=== PATIENT | female | born 1990 | race Caucasian/White ===

== ENCOUNTER 2018-05-25 05:49 | Outpatient (CLI) | payer MEDICAID ==
[~2018-05-25] VITALS: Ht 170.2 cm; Wt 152.4 kg
[~2018-05-25 05:49] MED LIST: ALBU17AE23 IH; ALBU8.5H4 IH; ALPR0.5T3 PO; ALPR1T PO; BACL10TA; CITA10TA70 PO; CLN150C1RX PO; CLON0.5T3; DESV50TA PO; DICL75TA2; DOXY100C2 PO; FLT4413 IH; GABA-486; HYDR25CA5 PO; IBUP-1773 PO; PRM5C60 TP; QUET100T32; SERT20OR PO; SULF1TAB35 PO; SULF1TAB38 PO
[2018-05-25] MEDS ORDERED: DICL75TA2 PO (12:23)
== END 2018-05-25 14:50 | disposition home or self-care (01) ==
LOC: PREOP 05:49
PROVIDERS: ATTEND Surgery
DX: Z01.818 Encounter for other preprocedural examination (principal)

== ENCOUNTER 2018-06-01 05:56 | Day surgery (SDC) | payer MEDICAID ==
[~2018-06-01] VITALS: Ht 170.2 cm; Wt 144.7 kg
[~2018-06-01 05:56] MED LIST changes: +DICL75TA2 PO
[2018-06-01 06:20] VITALS: BP 129/82
[2018-06-01] MEDS ORDERED: CATHETER FLUSH 10 ML SYR IV PRN (06:45)
[2018-06-01] MEDS ORDERED: ceFAZolin 2 GM IV Premixed 50 ML IV ONE (06:45)
[2018-06-01] MEDS ORDERED: MIDAZOLAM 2 MG/2 ML (VERSED) VIAL ONE (06:56)
[2018-06-01] MEDS ORDERED: proPOfol 200 MG/20 ML (DIPRIVAN) VIAL IV ONE (06:56)
[2018-06-01] MEDS ORDERED: ROCURONIUM 10 MG/ML 5 ML SYRINGE IV ONE (06:56)
[2018-06-01] MEDS ORDERED: ONDANSETRON 4 MG/2 ML (SDV) Z0FRAN ONE (06:56)
[2018-06-01] MEDS ORDERED: LIDOCAINE PF 2% 5 ML (XYLOCAINE) VIAL ONE (06:56)
[2018-06-01] MEDS ORDERED: fentaNYL INJECTION 100 MCG/2 ML AMP ONE (06:57)
[2018-06-01] MEDS ORDERED: DESFLURANE (SUPRANE) 15 ML INHAL SOLN ONE ×6 (06:59→09:25)
[2018-06-01] MEDS ORDERED: MIDAZOLAM 2 MG/2 ML (VERSED) VIAL IV ONE (07:00)
[2018-06-01] MEDS: LACTATED RINGERS 1,000 ML IV PRN ×2 (07:15→09:05)
--- OUTSIDE RECORDS SUMMARY | 2018-06-01 07:21 | XMS REPORT ---
Author Author Migration, Doctor Organization [facility] Address Unknown Phone Unavailable Care Team Providers Care Mechanical Product Engineer Name Role Phone Migration, Doctor Unavailable Unavailable PROBLEMS Type Condition ICD9-CM Code [id number] Code Onset Dates Condition Status SNOMED Code Problem Tobacco abuse Z72.0 Active 60069113 Problem History of long-term use of multiple prescription drugs Z92.29 Active 124322178 Problem Moderate persistent asthma without complication J45.40 Active 801291588 Problem Moderate depressed bipolar I disorder F31.32 Active 52066812 Problem Schizophrenia F20.9 Active 72541959 Problem Bipolar disorder F31.9 Active 58727842 Problem BUTCH (generalized anxiety disorder) F41.1 Active 01678662 Problem Moderate episode of recurrent major depressive disorder F33.1 Active 031260631 Problem 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 03602437 Problem Body mass index (BMI) of 45.0-49.9 in adult Z68.42 Active 307447375 Problem Morbid (severe) obesity due to excess calories E66.01 Active 796652487 Problem Morbid obesity E66.01 Active 227195353 Problem Borderline personality disorder F60.3 Active 63084747 Problem Calculus of gallbladder without cholecystitis without obstruction K80.20 Active 91877807 Problem Cannabis use disorder, mild, abuse F12.10 Active 63309467 Problem Family history of hyperlipidemia Z83.49 Active 234361491 Problem Other chronic pain G89.29 Active 44455494 Problem Lumbago with sciatica, left side M54.42 Active 819226344 Problem Lumbago with sciatica, right side M54.41 Active 901503373856537 Problem BMI 50.0-59.9, adult Z68.43 Active 823821280 ALLERGIES No Information ENCOUNTERS Encounter Location Date Diagnosis [facility] [address] [facility] [id number] [place] [address] May, Encounter for smoking cessation counseling Z71.6 ; BMI 50.0- 59.9, adult Z68.43 ; Rash R21 ; Calculus of gallbladder without cholecystitis without obstruction K80.20 ; Tobacco use Z72.0 ; Morbid obesity E66.01 and Other chronic pain G89.29 [place] [id number] [place] [address] 03307- 3409 Mar, [place] [id number] [place] [address] 04692- 7618 Mar, [place] [address] [address]15- 8794 Nov, BUTCH (generalized anxiety disorder) F41.1 ; 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 ; Borderline personality disorder F60.3 and Cannabis use disorder, mild, abuse F12.10 [place] [id number] [place] [address] 09153- 6629 July, BMI 50.0-59.9, adult Z68.43 ; Rash R21 ; Morbid (severe) obesity due to excess calories E66.01 and Infection, fungal, left foot B35.3 [place] [id number] [place] [address] 32067- 0213 May, [place] [id number] [place] [address] 17973- 8345 Mar, [place] [id number] [place] [address] 54392- 4109 Mar, [place] [id number] [place] [address] 84493- 4037 Mar, BUTCH (generalized anxiety disorder) F41.1 ; 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 ; Borderline personality disorder F60.3 ; Cannabis use disorder, mild, abuse F12.10 and BMI 45.0-49.9, adult Z68.42 [place] [address] [place] [address] 55845- 0829 Feb, BMI 45.0-49.9, adult Z68.42 ; Lumbago with sciatica, left side M54.42 ; Lumbago with sciatica, right side M54.41 and Other chronic pain G89.29 [place] [id number] [place] [address] 28878- 1721 Feb, BUTCH (generalized anxiety disorder) F41.1 ; 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 ; Borderline personality disorder F60.3 and Cannabis use disorder, mild, abuse F12.10 [place] [id number] [place] [address] 07794- 6744 Jan, BUTCH (generalized anxiety disorder) F41.1 ; 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 ; Borderline personality disorder F60.3 and Cannabis use disorder, mild, abuse F12.10 [place] [id number] [place] [address] 21246- 7749 Dec, Cold intolerance R68.89 ; Morbid (severe) obesity due to excess calories E66.01 ; Screening for lipid disorders Z13.220 and Screening for diabetes mellitus (DM) Z13.1 [address] [place] [address] 94187- 4370 Dec, Body mass index (BMI) of 45.0-49.9 in adult Z68.42 ; Morbid (severe) obesity due to excess calories E66.01 ; Screening for diabetes mellitus (DM) Z13.1 ; Screening for lipid disorders Z13.220 and Cold intolerance R68.89 [place] [address] [place] [address] 52627- 4583 Nov, BUTCH (generalized anxiety disorder) F41.1 ; 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 ; Borderline personality disorder F60.3 and Cannabis use disorder, mild, abuse F12.10 [place] [address] [address] Oct, [place] [id number] [place] [address] 09197- 9686 Oct, BUTCH (generalized anxiety disorder) F41.1 ; 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 ; Borderline personality disorder F60.3 and Cannabis use disorder, mild, abuse F12.10 [place] [id number] [place] [address] 82868- 4398 17 Sep, 2016 Encounter for test, result unknown Z32.00 [place] [id number] [place] [address] 93639- 1741 15 Aug, 2016 Low back pain M54.5 ; Dermatitis L30.9 ; Moderate episode of recurrent major depressive disorder F33.1 ; Morbid (severe) obesity due to excess calories E66.01 ; Body mass index (BMI) of 40.0-44.9 in adult Z68.41 and BMI 40.0-44.9, adult Z68.41 [place] [id number] [place] [address] 22098- 3508 13 Aug, [address] [address]349- 9044 Aug, [address] 78823- 6181 Aug, Moderate depressed bipolar I disorder F31.32 ; Schizophrenia F20.9 and Bipolar disorder, current episode mixed, moderate F31.62 [place] [id number] [place] [address] 77045- 7583 May, Nexplanon insertion Z30.017 [place] [id number] [place] [address] 65639- 6116 Apr, History of long-term use of multiple prescription drugs Z92.29 ; Cannabis abuse F12.10 ; Moderate depressed bipolar I disorder F31.32 and Bipolar disorder, current episode mixed, moderate F31.[address] 45352- 7671 Mar, Cannabis abuse F12.10 and Bipolar disorder F31.9 [place] [id number] [place] [address] 61667- 2522 Mar, [place] [id number] [place] [address] 66914- 9528 Mar, exam Z39.2 [facility] [id number] [place] [address] 03673- 1453 Feb, Bipolar disorder, current episode mixed, moderate F31.62 [facility] [id number] [place] [address] 23986- 5953 Feb, [place] [id number] [place] [address] 61046- 1493 Jan, [place] [id number] [place] [address] 84980- 4176 Jan, [place] [id number] [place] [address] 42512- 1890 Jan, care, subsequent in third trimester Z34.83 and 37 weeks gestation of Z3A.37 [place] [id number] [place] [address] 73514- 9066 17 Jan, 2016 Encounter for dental examination and cleaning without abnormal findings Z01.20 [place] [id number] [place] [address] 80490- 9577 10 Jan, 2016 [place] [id number] [place] [address] 36158- 0916 10 Jan, 2016 care, subsequent in third trimester Z34.83 and 36 weeks gestation of Z3A.36 [place] [id number] [place] [address] 43147- 5091 03 Jan, 2016 Third trimester at less than 36 weeks Z33.1 ; screening for streptococcus B Z36 and 35 weeks gestation of Z3A.35 [place] [id number] [place] [address] 43227- 5534 Dec, care, subsequent in third trimester Z34.83 and 34 weeks gestation of Z3A.34 [place] [id number] [place] [address] 90520- 7883 Dec, [facility] [address] [address]- 1577 Dec, Urine frequency R35.0 [place] [id number] [place] [address] 77331- 3719 Dec, Urine frequency R35.0 [place] [id number] [place] [address] 96242- 1864 Dec, Third trimester at less than 36 weeks Z33.1 ; 31 weeks gestation of Z3A.31 and Encounter for immunization Z23 [place] [id number] [place] [address] 38990- 0575 Dec, [place] [id number] [place] [address] 11838- 6487 Nov, Third trimester at less than 36 weeks Z33.1 ; Encounter for immunization Z23 and 29 weeks gestation of Z3A.29 [facility] [id number] [place] [address] 50871- 7056 Nov, Second trimester Z33.1 and Diabetes mellitus screening Z13.1 [place] [id number] [place] [address] 16192- 3195 Oct, Second trimester Z33.1 and 23 weeks gestation of Z3A.23 [place] [id number] [place] [address] 02317- 8071 Oct, [place] [id number] [place] [address] 46393- 6486 Sep, [place] [id number] [place] [address] 24882- 0210 Sep, Second trimester Z33.1 ; 18 weeks gestation of Z3A.18 ; History of long-term use of multiple prescription drugs Z92.29 ; complicated by previous recurrent miscarriages, 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 and , high-risk, second trimester O09.92 [place] [id number] [place] [address] 98441- 6663 Aug, [place] [address] [id number] [address]- 7157 Aug, , high-risk, second trimester O09.92 and 14 weeks gestation of Z3A.14 [place] [id number] [address]- 0586 July, complicated by previous recurrent miscarriages, 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 [place] [address], [place] [address]- 2723 July, , high-risk, second trimester O09.92 ; Moderate persistent asthma without complication J45.40 and 16 weeks gestation of Z3A.16 [facility] [address] [id number] [place] [address] July [place] [address] [address]- 2590 July, [place] [address] [address]- 5006 July, Moderate depressed bipolar I disorder F31.32 ; Cannabis abuse F12.10 and First trimester Z33.1 [place] [address] [address]- 5141 Jun, [place] [address] [address]- 5048 Jun, [place] [address], [place] [address]- 6235 Jun, confirmed by positive urine test Z32.01 [place] [address], [place] [address]- 3882 Jun, Moderate depressed bipolar I disorder F31.32 and Cannabis abuse F12.10 [place] [id number] [address]- 2678 May, [place] [address] [address]- 5042 May, [place] [address] [place] [address] 36735- 1780 May, Moderate depressed bipolar I disorder F31.32 and Cannabis abuse F12.10 [place] [address] [place] [address] 13230- 7675 May, Routine screening for STI (sexually transmitted infection) Z11.3 ; Moderate depressed bipolar I disorder F31.32 ; Unprotected sexual intercourse Z72.51 ; History of irregular menstrual bleeding Z87.42 ; Screening for malignant neoplasm of cervix Z12.4 and Vaginal discharge N89.[address] 29669- 0077 May, Moderate depressed bipolar I disorder F31.32 and Cannabis abuse F12.10 [place] [id number] [place] [address] 29560- 1943 Apr, History of long-term use of multiple prescription drugs Z92.29 [place] [id number] [place] [address] 56238- 8040 24 Apr, 2015 Tobacco abuse Z72.0 ; High risk bisexual behavior Z72.53 ; History of long-term use of multiple prescription drugs Z92.29 and Family history of hyperlipidemia Z83.49 [place] [id number] [place] [address] 27368- 4093 Apr, [place] [id number] [place] [address] 87830- 1656 Jan, Posttraumatic stress disorder F43.10 ; Borderline personality disorder F60.3 and Bipolar disorder with severe depression F31.[address] 68089- 6821 14 Nov, 2014 Bipolar I disorder, most recent episode (or current) mixed, moderate 296.62 ; Posttraumatic stress disorder 309.81 and Nondependent cannabis abuse, unspecified 305.20 [place] [id number] [place] [address] 01431- 3741 Nov, Posttraumatic stress disorder 309.81 ; Attention deficit 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.00 and Bipolar I disorder, most recent episode (or current) mixed, moderate 296.62 [facility] [address] [place] [address] 807777- 4366 Oct, [facility] [id number] [place] [address] 36645- 6754 Sep, Family history of diabetes mellitus V18.0 ; Fatigue 780.79 ; Tobacco abuse 305.1 and Overweight 278.02 [facility] [address] [place] [address] 49067- 0235 Aug, [facility] [id number] [place] [address] 82684- 1973 Aug, [facility] [id number] [place] [address] 57957- 4244 Aug, [facility] [id number] [place] [address] 15610- 6582 Aug, Bipolar I disorder, most recent episode (or current) mixed, moderate 296.62 and Nondependent cannabis abuse, unspecified 305.20 [facility] [address] [place] [address] 19020- 5800 July, Bipolar I disorder, most recent episode (or current) mixed, moderate 296.62 ; Posttraumatic stress disorder 309.81 ; Attention deficit 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.00 and Nondependent cannabis abuse, unspecified 305.20 [facility] [address], [place] [address]- 7002 July, [facility] [id number] [place] [address] 93072- 7993 Jun, [facility] [id number] [place] [address] 41339551- 8848 Jun, [facility] [address] [place] [address] 78572- 3466 May, [facility] [place] [facility] [address] [id number] [place] [address]- 8524 May, [facility] [place] [facility] [address] [id number] [place] [address]- 5628 May, [facility] [place] [facility] [address] [id number] [place] [address]- 2831 May, [facility] [place] [facility] [address] [id number] [place] [address]- 6864 May, [facility] [place] [facility] [address] [id number] [place] [address]- 6573 May, [facility] [place] [facility] [address] [id number] [place] [address]- 1216 Apr, [facility] [place] [facility] [address] [id number] [place] [address]- 7313 Apr, [facility] [place] [facility] [address] [id number] [place] [address]- 8483 Mar, [facility] [place] [facility] [address] [id number] [place] [address]- 4596 Mar, [facility] [place] [facility] [address] [id number] [place] [address]- 7161 Mar, [facility] [place] [facility] [address] [id number] [place] [address]- 7505 Mar, [facility] [place] [facility] [address] [id number] [place] [address]- 2907 Mar, [facility] [place] [facility] [address] [id number] [place] [address]- 4414 Mar, [facility] [place] [facility] [address] [id number] [place] [address]- 8197 Feb, [facility] [place] [facility] [address] [id number] [place] [address]- 6502 Feb, [facility] [place] [facility] [address] [id number] [place] [address]- 2230 Feb, [facility] [place] [facility] [address] [id number] [place] [address]- 0590 Feb, [facility] [place] [facility] [address] [id number] [place] [address]- 4907 Feb, [facility] [place] [facility] [address] [id number] [place] [address]- 3789 Feb, [facility] [place] [facility] [address] [id number] [place] [address]- 5143 Feb, [facility] [place] [facility] [address] [id number] [place] [address]- 9750 Jan, [facility] [place] [facility] [address] [id number] [place] [address]- 2591 Jan, [facility] [place] [facility] [address] [id number] [place] [address]- 6092 Jan, [facility] [place] [facility] [address] [id number] [place] [address]- 1181 Jan, [facility] [place] [facility] [address] [id number] [place] [address]- 1697 Jan, [facility] [place] [facility] [address] [id number] [place] [address]- 3711 Jan, [facility] [place] [facility] [address] [id number] [address]- 4268 Dec, [facility] [place] [facility] [address] [id number], [place] [address]- 4860 Dec, [facility] [place] [facility] [address] [id number] [place] [address]- 1535 Dec, [facility] [place] [facility] [address] [id number] [place] [address]- 3843 Dec, [facility] [place] [facility] [address] [id number] [place] [address]- 4929 Dec, [facility] [place] [facility] [address] [id number] [place] [address] 2546 Dec, [facility] [place] [facility] [address] [id number] [place] [address]- 5705 Dec, [facility] [place] [facility] [address] [id number] [place] [address]- 7866 Dec, [facility] [place] [facility] [address] [id number] [place] [address]- 8814 Nov, [facility] [place] [facility] [address] [id number] [place] [address]- 5836 Nov, [facility] [place] [facility] [address] [id number] [place] [address]- 5754 Oct, [facility] [place] [facility] [address] [id number] [place] [address]- 8246 Oct, [facility] [place] [facility] [address] [id number] [place] [address]- 6881 Oct, [facility] [place] [facility] [address] [id number] [place] [address]- 8112 Aug, [facility] [place] [facility] [address] [id number] [place] [address]- 1596 Aug, [facility] [place] [facility] [address] [id number] [place] [address]- 5688 Aug, [facility] [place] [facility] [address] [id number] [place] [address]- 0668 Aug, [facility] [place] [facility] [address] [id number] [place] [address]- 3663 July, [facility] [place] [facility] [address] [id number] [place] [address]- 8016 July, [facility] [place] [facility] [address] [id number] [place] [address]- 0197 July, [facility] [place] [facility] [address] [id number] [place] [address]- 3726 July, [facility] [address] [id number] [place] [address]- 2363 July, [facility] [place] [facility] [address] [id number] [place] [address]- 9911 July, [facility] [place] [facility] [address] [id number] [place] [address]- 0307 Jun, [facility] [place] [facility] [address] [id number] [place] [address]- 8242 Jun, [facility] [place] [facility] [address] [id number] [place] [address]- 9522 Jun, [facility] [place] [facility] [address] [id number] [place] [address]- 6782 Jun, [facility] [place] [facility] [address] [id number] [place] [address]- 8983 Apr, [facility] [place] [facility] [address] [id number] [place] [address]- 3758 Apr, [facility] [place] [facility] [address] [id number] [place] [address]- 7072 Mar, [facility] [place] [facility] [address] [id number] [place] [address]- 7161 Mar, [facility] [place] [facility] [address] [id number] [place] [address]- 0778 Mar, [facility] [place] [facility] [address] [id number] [place] [address]- 5201 Mar, [facility] [place] [facility] [address] [id number] [place] [address]- 7667 Feb, [facility] [place] [facility] [address] [id number] [place] [address]- 1252 Feb, [facility] [place] [facility] [address] [id number] [place] [address]- 9462 Feb, [facility] [place] [facility] [address] [id number] [place] [address]- 3192 13 Feb, 2013 [facility] [address] [id number] [place] [address]- 3911 13 Feb, 2013 [facility] [place] [facility] [address] [id number] [place] [address]- 7994 13 Feb, 2013 [facility] [address] [id number] [place] [address]- 6698 11 Feb, 2013 [facility] [place] [facility] [address] [id number] [place] [address]- 7047 11 Feb, 2013 [facility] [address] [id number] [place] [address]- 4166 04 Feb, 2013 [facility] [place] [facility] [address] [id number] [place] [address]- 7109 03 Feb, 2013 [facility] [address] [id number] [place] [address]- 7103 03 Feb, 2013 [facility] [place] [facility] [address] [id number] [place] [address]- 3483 19 Jan, 2013 [facility] [place] [facility] [address] [id number] [place] [address]- 4729 19 Jan, 2013 [facility] [place] [facility] [address] [facility] [id number] [place] [address] 19 Jan, 2013 [facility] [place] [facility] [address] [id number] [place] [address] 19 Jan, 2013 [facility] [place] [facility] [address] [id number] [address] 18 Dec, 2012 [facility] [place] [facility] [address] [id number] [place] [address] 18 Dec, 2012 [facility] [place] [facility] [address] [id number], [place] [address] 16 Dec, 2012 [facility] [place] [facility] [address] [id number] [address] 16 Dec, 2012 [facility] [place] [facility] [address] [id number] [place] [address] Dec, [facility] [place] [facility] [address] [id number] [place] [address] Dec, [facility] [place] [facility] [address] [id number] [place] [address] Oct, [facility] [place] [facility] [address] [id number] [place] [address] Oct, [facility] [place] [facility] [address] [id number] [place] [address] Oct, [facility] [place] [facility] [address] [id number] [place] [address] Oct, [facility] [place] [facility] [address] [id number] [place] [address] Sep, [facility] [place] [facility] [address] [id number] [place] [address] Sep, [facility] [place] [facility] [address] [id number] [place] [address] Aug, [facility] [place] [facility] [address] [id number] [place] [address] July, [facility] [place] [facility] [address] [id number] [place] [address] Jun, [facility] [place] [facility] [address] [id number] [place] [address] Jun, [facility] [place] [facility] [address] [id number] [place] [address] Jun, [facility] [place] [facility] [address] [id number] [place] [address] May, [facility] [place] [facility] [address] [id number] [place] [address] May, [facility] [place] [facility] [address] [id number] [place] [address] May, [facility] [place] [facility] [address] [id number] [place] [address] Apr, [facility] [place] [facility] [address] [id number] [place] [address] Mar, [facility] [place] [facility] [address] [id number] [place] [address] Mar, [facility] [place] [facility] [address] [id number] [place] [address] Mar, [facility] [place] [facility] [address] [id number] [place] [address] Feb, [facility] [place] [facility] [address] [id number] [place] [address] Feb, [facility] [place] [facility] [address] [id number] [place] [place] [address] Feb, [facility] [place] [facility] [address] [id number] [place] [address] Feb, [facility] [place] [facility] [address] [id number] [place] [address] Jan, [facility] [place] [facility] [address] [id number] [place] [address] Jan, [facility] [place] [facility] [address] [id number] [place] [address] Jan, [facility] [place] [facility] [address] [id number] [place] [address] Dec, [facility] [place] [facility] [address] [id number] [place] [address] Dec, [facility] [place] [facility] [address] [id number] [place] [address] Oct, [facility] [place] [facility] [address] [id number] [place] [address] Sep, [facility] [place] [facility] [address] [id number] [place] [address] Sep, [facility] [address] [id number] [place] [address] July, [facility] [address] [id number] [place] [address] July, [facility] [address] [id number] [place] [address] Jun, [facility] [address] [id number] [place] [address] Jun, [facility] [address] [id number] [place] [address] Jun, [facility] [address] [id number] [place] [address] Jun, [facility] [address] [id number] [place] [address] Apr, [facility] [address] [id number] [place] [address] Apr, [facility] [address] [id number] [place] [address] Mar, [facility] [address] [id number] [place] [address] Mar, [facility] [address] [id number] [place] [address] Mar, [facility] [address] [id number] [place] [address] Feb, [facility] [place] [facility] [address] [id number] [place] [address] Feb, [facility] [address] [id number] [place] [address] Feb, [facility] [address] [id number] [place] [address] Feb, [facility] [address] [facility] [id number], [place] [address] Feb, [facility] [address] [facility] [id number], [place] [address] Jan, [facility] [address] [facility] [id number], [place] [address] Mar, [facility] [address] [facility] [id number] [address] Mar, [facility] [address] [facility] [id number], [place] [address] Jan, IMMUNIZATIONS No Known Immunizations SOCIAL HISTORY Never Assessed REASON FOR VISIT [facility] [place] VITAL SIGNS MEDICATIONS Unknown Medications RESULTS No Results PROCEDURES No Known procedures INSTRUCTIONS MEDICATIONS ADMINISTERED No Known Medications MEDICAL (GENERAL) HISTORY Type Description Date Medical History Narc Note March 2014 positive THC & Xanax without current Rx Medical History Asthma Medical History Borderline diabetes Medical History Depression with hallucinations, personality, self inflicting Medical History Bipolar disorder Medical History THC Abuse Medical History Arthralgia and Myalgia Negative RA Mar 2014 Medical History Anxiety Medical History Nondependent cannabis abuse, unspecified Medical History Attention deficit disorder of childhood without mention of hyperactivity Medical History Bipolar I disorder, most recent episode (or current) mixed, moderate Medical History Posttraumatic stress disorder Medical History schizophrenia Surgical History Tonsillectomy Hospitalization History Previous hospitalizations for over dose on Tylenol, Aspirin, Ibuprofen 2007 Hospitalization History Previous hospitalizations for psychiatric treatment for suicidal tendencies, cutter, burner, biter ([place] x2, [place] x1, [place] x3) Hospitalization History Acute Migraines/Vomiting 2014 Hospitalization History Childbirth 01/31/2016
--- OUTSIDE RECORDS SUMMARY | 2018-06-01 07:21 | XMS REPORT | Clinical Summary ---
Author Author [facility] Organization [facility] Address Unknown Phone Unavailable Care Team Providers Care Mining Detail Draftsperson Name Role Phone PP Unavailable Allergies No Known Allergies Medications No known medications Active Problems Problem Noted Date Suicidal ideation 01/05/2011 Mood disorder with psychosis 01/02/2011 Immunizations Name Dates Previously Given Next Due Influenza IIV3 PFree 01/01/2011 Family History Medical History Relation Name Comments Mental illness Maternal Aunt Jenniferna Mental illness Maternal Merlin Uncle Mental illness Mother Delon Relation Name Status Comments Brother Markell Alive Maternal Aunt Pascual Alive Maternal Uncle Merlin Alive Mother Delon Alive Social History Date Tobacco Use Types Packs/Day Years Used Current Every Day Smoker 1 5 Smokeless Tobacco: Never Used Tobacco Cessation: Ready to Quit: No; Counseling Given: Yes Alcohol Use Drinks/Week oz/Week Comments No Sex Assigned at Date Recorded Not on file Industry Job Start Date Occupation Not on file Not on file Not on file Travel End Travel History Travel Start No recent travel history available. Last Filed Vital Signs Time Taken Vital Sign Reading 01/05/2011 6:58 AM CDT Blood Pressure 125/63 01/05/2011 6:58 AM CDT Pulse 87 01/05/2011 6:58 AM CDT Temperature 36.8 C (98.2 F) 01/05/2011 6:58 AM CDT Respiratory Rate 16 - Oxygen Saturation - - Inhaled Oxygen - Concentration 01/01/2011 3:55 PM CDT Weight 130.2 kg (287 lb) 01/01/2011 3:55 PM CDT Height 167.6 cm (5' 6") 01/01/2011 3:55 PM CDT Body Mass Index 46.32 Plan of Treatment Health Maintenance Due Date Last Done Comments Varicella Vaccines (1 of 07/02/2004 2 - 13+ 2-dose series) HPV Vaccines (1 - Female 07/02/2006 3-dose series) DTaP,Tdap,and Td Vaccines 07/02/2010 (1 - Tdap) CERVICAL CANCER SCREENING 07/02/2012 Influenza Vaccine (#1) 2017 01/01/2011 Results Not on filefrom Last 3 Months Advance Directives For more information, please contact: [address] [address] Date Inactivated Comments Code Status Date Activated 01/05/2011 4:13 PM Full Code 01/01/2011 5:24 PM
--- OUTSIDE RECORDS SUMMARY | 2018-06-01 07:22 | XMS REPORT ---
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 49747771 Problem Borderline personality disorder F60.3 Active 36314021 Problem BMI 50.0-59.9, adult Z68.43 Active 367768101 Problem Other chronic pain G89.29 Active 84751741 Problem Morbid (severe) obesity due to excess calories E66.01 Active 216409356 Problem Body mass index (BMI) of 45.0-49.9 in adult Z68.42 Active 696089804 Problem Lumbago with sciatica, right side M54.41 Active [id number] Problem Lumbago with sciatica, left side M54.42 Active 656580814 Problem History of long-term use of multiple prescription drugs Z92.29 Active 419909614 Problem Family history of hyperlipidemia Z83.49 Active 166708774 Problem Tobacco abuse Z72.0 Active 58778392 Problem Bipolar disorder F31.9 Active 67331348 Problem Schizophrenia F20.9 Active 26910013 Problem Moderate depressed bipolar I disorder F31.32 Active 39944096 Problem Moderate episode of recurrent major depressive disorder F33.1 Active 396226231 Problem Moderate persistent asthma without complication J45.40 Active 118867069 Problem BUTCH (generalized anxiety disorder) F41.1 Active 98157351 ALLERGIES No Information ENCOUNTERS Encounter Location Date Diagnosis [facility] [id number] [address] Oct, [facility] [address], [place] [address] July, BMI 50.0-59.9, adult Z68.43 ; Rash R21 ; Morbid (severe) obesity due to excess calories E66.01 and Infection, fungal, left foot B35.3 [address] [address] May, [id number] [place] [address] 51510- 3437 Mar, [id number] [place] [address] 36922- 7912 Mar, [id number] [place] [address] 28709- 4917 Mar, BUTCH (generalized anxiety disorder) F41.1 ; 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 ; Borderline personality disorder F60.3 ; Cannabis use disorder, mild, abuse F12.10 and BMI 45.0-49.9, adult Z68.42 [id number] [place] [address] 53023- 6389 Feb, BMI 45.0-49.9, adult Z68.42 ; Lumbago with sciatica, left side M54.42 ; Lumbago with sciatica, right side M54.41 and Other chronic pain G89.29 [address] [address] Feb, BUTCH (generalized anxiety disorder) F41.1 ; 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 ; Borderline personality disorder F60.3 and Cannabis use disorder, mild, abuse F12.10 [address] [place] [address] 75911- 1914 Jan, BUTCH (generalized anxiety disorder) F41.1 ; 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 ; Borderline personality disorder F60.3 and Cannabis use disorder, mild, abuse F12.10 [id number] [place] [address] 70952- 4949 Dec, Cold intolerance R68.89 ; Morbid (severe) obesity due to excess calories E66.01 ; Screening for lipid disorders Z13.220 and Screening for diabetes mellitus (DM) Z13.1 [id number] [place] [address] 95517- 3091 Dec, Body mass index (BMI) of 45.0-49.9 in adult Z68.42 ; Morbid (severe) obesity due to excess calories E66.01 ; Screening for diabetes mellitus (DM) Z13.1 ; Screening for lipid disorders Z13.220 and Cold intolerance R68.[address] [address]- [address] Nov, BUTCH (generalized anxiety disorder) F41.1 ; 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 ; Borderline personality disorder F60.3 and Cannabis use disorder, mild, abuse F12.[address] [address]- 3877 Oct, [address] [address]- 3127 Oct, BUTCH (generalized anxiety disorder) F41.1 ; 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 ; Borderline personality disorder F60.3 and Cannabis use disorder, mild, abuse F12.10 [id number] [place] [address] 51176- 0954 Sep, Encounter for test, result unknown Z32.[address] [address]- 1554 15 Aug, 2016 Low back pain M54.5 ; Dermatitis L30.9 ; Moderate episode of recurrent major depressive disorder F33.1 ; Morbid (severe) obesity due to excess calories E66.01 ; Body mass index (BMI) of 40.0-44.9 in adult Z68.41 and BMI 40.0-44.9, adult Z68.[address] 17020- 2993 Aug, [facility] [id number] [place] [address] 33194- 6789 Aug, [facility] [id number] [place] [address] 26952- 3204 Aug, Moderate depressed bipolar I disorder F31.32 ; Schizophrenia F20.9 and Bipolar disorder, current episode mixed, moderate F31.62 [id number] [place] [address] 72616- 3955 May, Nexplanon insertion Z30.017 [facility] [id number] [place] [address] 72412- 8002 Apr, History of long-term use of multiple prescription drugs Z92.29 ; Cannabis abuse F12.10 ; Moderate depressed bipolar I disorder F31.32 and Bipolar disorder, current episode mixed, moderate F31.62 [id number] [place] [address] 28671- 9993 Mar, Cannabis abuse F12.10 and Bipolar disorder F31.9 [id number] [place] [address] 94749- 3953 Mar, [id number] [place] [address] 47426- 4169 Mar, exam Z39.2 [id number] [place] [address] 61534- 0384 Feb, Bipolar disorder, current episode mixed, moderate F31.62 [facility] [id number] [place] [address] 25838- 6867 Feb, [facility] [id number] [place] [address] 36956- 8289 Jan, [facility] [id number] [place] [address] 40421- 9786 Jan, [facility] [id number] [place] [address] 34301- 0895 Jan, care, subsequent in third trimester Z34.83 and 37 weeks gestation of Z3A.37 [id number] [place] [address] 65171- 1326 17 Jan, 2016 Encounter for dental examination and cleaning without abnormal findings Z01.20 [id number] [place] [address] 94255- 4010 10 Jan, 2016 [address] [address]- 3654 Jan, care, subsequent in third trimester Z34.83 and 36 weeks gestation of Z3A.36 [address] 85803- 0354 03 Jan, 2016 Third trimester at less than 36 weeks Z33.1 ; screening for streptococcus B Z36 and 35 weeks gestation of Z3A.35 [address] 75216- 1019 Dec, care, subsequent in third trimester Z34.83 and 34 weeks gestation of Z3A.34 [id number] [place] [address] 23242- 4539 Dec, [id number] [place] [address] 03411- 7392 Dec, Urine frequency R35.0 [id number] [place] [address] 47448- 2145 Dec, Urine frequency R35.0 [id number] [place] [address] 95879- 9287 Dec, Third trimester at less than 36 weeks Z33.1 ; 31 weeks gestation of Z3A.31 and Encounter for immunization Z23 [id number] [place] [address] 56472- 0599 Dec, [id number] [place] [address] 05987- 3670 22 Sep, 2016 Third trimester at less than 36 weeks Z33.1 ; Encounter for immunization Z23 and 29 weeks gestation of Z3A.29 [address] [place] [address] 29747- 3132 Nov, Second trimester Z33.1 and Diabetes mellitus screening Z13.1 [address] [place] [address] 94167- 6304 Oct, Second trimester Z33.1 and 23 weeks gestation of Z3A.23 [id number] [place] [address] 60822- 1621 Oct, [id number] [place] [address] 29431- 7196 Sep, [address] [place] [address] 85077- 6138 Sep, Second trimester Z33.1 ; 18 weeks gestation of Z3A.18 ; History of long-term use of multiple prescription drugs Z92.29 ; complicated by previous recurrent miscarriages, 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 and , high-risk, second trimester O09.92 [address] [place] [address] 02879- 0102 Aug, [address] [place] [address] 07515- 9110 Aug, , high-risk, second trimester O09.92 and 14 weeks gestation of Z3A.14 [address] [place] [address] 37608- 0699 July, complicated by previous recurrent miscarriages, 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 [address] [place] [address] 38087- 1789 July, , high-risk, second trimester O09.92 ; Moderate persistent asthma without complication J45.40 and 16 weeks gestation of Z3A.16 [facility] [address] [id number] [address] July [facility] [address] [address]- 6[address] July, [facility] [id number] [place] [address] 69303- 4551 July, Moderate depressed bipolar I disorder F31.32 ; Cannabis abuse F12.10 and First trimester Z33.1 [address] [place] [address] 60869- 4196 Jun, [facility] [id number] [place] [address] 28462- 3583 Jun, [id number] [place] [address] 01718- 5010 Jun, confirmed by positive urine test Z32.01 [id number] [place] [address] 59122- 4762 Jun, Moderate depressed bipolar I disorder F31.32 and Cannabis abuse F12.10 [address] [place] [address] 09478- 5338 May, [id number] [place] [address] 80095- 2629 May, [facility] [address] [place] [address] 04717- 7050 May, Moderate depressed bipolar I disorder F31.32 and Cannabis abuse F12.10 [address] [place] [address] 58560- 3191 May, Routine screening for STI (sexually transmitted infection) Z11.3 ; Moderate depressed bipolar I disorder F31.32 ; Unprotected sexual intercourse Z72.51 ; History of irregular menstrual bleeding Z87.42 ; Screening for malignant neoplasm of cervix Z12.4 and Vaginal discharge N89.8 [address] [address]- 8819 May, Moderate depressed bipolar I disorder F31.32 and Cannabis abuse F12.10 [address] [place] [address] 67715- 9296 Apr, History of long-term use of multiple prescription drugs Z92.29 [address] [place] [address] 49778- 7864 Apr, Tobacco abuse Z72.0 ; High risk bisexual behavior Z72.53 ; History of long-term use of multiple prescription drugs Z92.29 and Family history of hyperlipidemia Z83.49 [id number] [place] [address] 31056- 8182 Apr, [id number] [place] [address] 66874- 1453 Jan, Posttraumatic stress disorder F43.10 ; Borderline personality disorder F60.3 and Bipolar disorder with severe depression F31.4 [id number] [place] [address] 85655- 4893 Nov, Bipolar I disorder, most recent episode (or current) mixed, moderate 296.62 ; Posttraumatic stress disorder 309.81 and Nondependent cannabis abuse, unspecified 305.20 [id number] [place] [address] 45998- 8123 Nov, Posttraumatic stress disorder 309.81 ; Attention deficit 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.00 and Bipolar I disorder, most recent episode (or current) mixed, moderate 296.62 [address] [place] [address] 10105- 1148 Oct, [id number] [place] [address] 45997- 9793 Sep, Family history of diabetes mellitus V18.0 ; Fatigue 780.79 ; Tobacco abuse 305.1 and Overweight 278.[address] [place] [address] 72568- 8778 Aug, [address] [place] [address] 68402- 2709 Aug, [address] [address] Aug, [facility] [address] [place] [address] 453435- 0956 Aug, Bipolar I disorder, most recent episode (or current) mixed, moderate 296.62 and Nondependent cannabis abuse, unspecified 305.20 [facility] [address] [place] [address] 555106- 9381 July, Bipolar I disorder, most recent episode (or current) mixed, moderate 296.62 ; Posttraumatic stress disorder 309.81 ; Attention deficit 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.00 and Nondependent cannabis abuse, unspecified 305.20 [facility] [address] [place] [address] 68324- 8479 July, [facility] [id number] [place] [address] 31881- 0462 Jun, [facility] [id number] [place] [address] 72302- 7828 Jun, [facility] [address] [address]- 5613 May, [facility] [address] [place] [address] 21710- 1760 May, [facility] [address] [address]- 0516 May, [facility] [address], [place] [address]- 2598 May, [facility] [address] [address] 0805 May, [facility] [address] [place] [address] 145769- 6396 May, [facility] [address] 1508 Apr, [facility] [id number] [place] [address], [place] [address]- 8285 Apr, [facility] [place] [facility] [address] [id number] [place] [address]- 6442 Mar, [facility] [place] [facility] [address] [id number] [place] [address]- 5535 Mar, [facility] [place] [facility] [address] [id number] [place] [address]- 9372 Mar, [facility] [place] [facility] [address] [id number] [place] [address]- 1208 Mar, [facility] [place] [facility] [address] [id number] [place] [address]- 0910 Mar, [facility] [place] [facility] [address] [id number] [place] [address]- 6950 Mar, [facility] [place] [facility] [address] [id number] [place] [address]- 5569 Feb, [facility] [place] [facility] [address] [id number] [place] [address]- 0627 Feb, [facility] [place] [facility] [address] [id number] [place] [address]- 9757 Feb, [facility] [place] [facility] [address] [id number] [place] [address]- 0698 Feb, [facility] [place] [facility] [address] [id number] [place] [address]- 8322 Feb, [facility] [place] [facility] [address] [id number] [place] [address]- 0552 Feb, [facility] [place] [facility] [address] [id number] [place] [address]- 7691 Feb, [facility] [place] [facility] [address] [id number] [place] [address]- 4258 Jan, [facility] [place] [facility] [address] [id number] [place] [address]- 3076 Jan, [facility] [place] [facility] [address] [id number] [place] [address]- 6120 Jan, [facility] [place] [facility] [address] [id number] [place] [address]- 0430 Jan, [facility] [place] [facility] [address] [id number] [place] [address]- 4751 Jan, [facility] [place] [facility] [address] [id number] [place] [address]- 6315 Jan, [facility] [place] [facility] [address] [id number] [place] [address]- 2665 Dec, [facility] [place] [facility] [address] [id number] [place] [address]- 5952 Dec, [facility] [place] [facility] [address] [id number] [place] [address]- 0668 Dec, [facility] [place] [facility] [address] [id number] [place] [address]- 2422 Dec, [facility] [place] [facility] [address] [id number] [place] [address]- 0189 Dec, [facility] [place] [facility] [address] [id number] [place] [address]- 0694 Dec, [facility] [place] [facility] [address] [id number] [place] [address]- 8026 Dec, [facility] [place] [facility] [address] [id number] [place] [address]- 8216 Dec, [facility] [place] [facility] [address] [id number] [place] [address]- 1854 Nov, [facility] [place] [facility] [address] [id number] [place] [address]- 3889 Nov, [facility] [place] [facility] [address] [id number] [place] [address]- 6289 Oct, [facility] [place] [facility] [address] [id number] [place] [address]- 5696 Oct, [facility] [place] [facility] [address] [id number] [place]- 2161 Oct, [facility] [place] [facility] [address] [id number] [place] [address]- 2928 Aug, [facility] [place] [facility] [address] [id number] [place] [address]- 8886 Aug, [facility] [place] [facility] [address] [id number] [place] [address]- 0573 Aug, [facility] [place] [facility] [address] [id number] [place] [address]- 8565 Aug, [facility] [place] [facility] [address] [id number] [place] [address]- 5914 July, [facility] [place] [facility] [address] [id number] [place] [address]- 6383 July, [facility] [place] [facility] [address] [id number] [place] [address]- 9042 July, [facility] [place] [facility] [address] [id number] [place] [address]- 5851 July, [facility] [place] [facility] [address] [id number] [place] [address]- 4337 July, [facility] [place] [facility] [address] [id number] [place] [address]- 2484 July, [facility] [place] [facility] [address] [id number] [place] [address]- 6216 Jun, [facility] [place] [facility] [address] [id number] [place] [address]- 3095 Jun, [facility] [place] [facility] [address] [id number] [place] [address]- 5792 Jun, [facility] [place] [facility] [address] [id number] [place] [address]- 5982 Jun, [facility] [place] [facility] [address] [id number] [place] [address]- 9375 14 Apr, 2013 [facility] [address] [id number] [place] [address]- 4763 14 Apr, 2013 [facility] [address] [id number] [place] [address]- 7476 Mar, [facility] [address] [id number] [place] [address]- 9056 Mar, [facility] [address] [id number] [place] [address]- 3414 Mar, [facility] [address] [id number] [place] [address]- 9894 Mar, [facility] [address] [id number] [place] [address]- 8879 16 Feb, 2013 [facility] [address] [id number] [place] [address]- 9354 16 Feb, 2013 [facility] [address] [id number] [place] [address]- 6030 13 Feb, 2013 [facility] [address] [id number] [place] [address]- 3642 13 Feb, 2013 [facility] [address] [id number] [place] [address]- 0390 13 Feb, 2013 [facility] [address] [id number] [place] [address]- 2542 13 Feb, 2013 [facility] [address] [id number] [place] [address] 2547 11 Feb, 2013 [facility] [address] [id number] [place] [address]- 5460 11 Feb, 2013 [facility] [address] [id number] [place] [address]- 3836 04 Feb, 2013 [facility] [address] [id number] [place] [address]- 4050 Feb, [facility] [place] [facility] [address] [id number] [place] [address]- 4078 Feb, [facility] [place] [facility] [address] [id number] [place] [address]- 5913 Jan, [facility] [place] [facility] [address] [id number] [place] [address]- 3821 Jan, [facility] [place] [facility] [address] [id number] [place] [address]- 3878 Jan, [facility] [place] [facility] [address] [id number] [place] [address]- 2117 Jan, [facility] [place] [facility] [address] [id number] [place] [address]- 3821 Dec, [facility] [place] [facility] [address] [id number] [place] [address]- 1466 Dec, [facility] [place] [facility] [address] [id number] [place] [address]- 8575 Dec, [facility] [place] [facility] [address] [id number] [place] [address]- 7076 Dec, [facility] [place] [facility] [address] [id number] [place] [address]- 3883 Dec, [facility] [place] [facility] [address] [id number] [place] [address]- 5007 Dec, [facility] [place] [facility] [address] [id number], [place] [address] Oct, [facility] [place] [facility] [address] [id number] [place] [address] Oct, [facility] [place] [facility] [address] [id number] [place] [address] Oct, [facility] [place] [facility] [address] [id number] [place] [address] Oct, [facility] [place] [facility] [address] [id number] [place] [address] 31 Sep, 2012 [facility] [address] [id number] [place] [address] Sep, [facility] [address] [id number] [place] [address] Aug, [facility] [address] [id number] [place] [address] July, [facility] [address] [id number] [place] [address] Jun, [facility] [address] [id number] [place] [address] Jun, [facility] [address] [id number] [place] [address] Jun, [facility] [address] [id number] [place] [address] May, [facility] [address] [id number] [place] [address] May, [facility] [address] [id number] [place] [address] May, [facility] [address] [id number] [place] [address] Apr, [facility] [address] [id number] [place] [address] Mar, [facility] [address] [id number] [place] [address] Mar, [facility] [address] [id number] [place] [address] Mar, [facility] [address] [id number] [place] [address] Feb, [facility] [address] [id number] [place] [address] Feb, [facility] [place] [facility] [address] [id number] [place] [address] Feb, [facility] [place] [facility] [address] [id number] [place] [address] Feb, [facility] [place] [facility] [address] [id number] [place] [address] Jan, [facility] [place] [facility] [address] [id number] [place] [address] Jan, [facility] [place] [facility] [address] [id number] [place] [address] Jan, [facility] [place] [facility] [address] [id number] [place] [address] Dec, [facility] [place] [facility] [address] [id number] [place] [place] [address] Dec, [facility] [place] [facility] [address] [id number] [place] [address] Oct, [facility] [place] [facility] [address] [id number] [place] [address] Sep, [facility] [place] [facility] [address] [id number] [place] [address] Sep, [facility] [place] [facility] [address] [id number] [place] [address] July, [facility] [place] [facility] [address] [id number] [place] [address] July, [facility] [place] [facility] [address] [id number] [place] [address] Jun, [facility] [place] [facility] [address] [id number] [place] [address] Jun, [facility] [place] [facility] [address] [id number] [place] [address] Jun, [facility] [place] [facility] [address] [id number] [place] [address] Jun, [facility] [id number] [address] Apr, [facility] [id number] [address] Apr, [facility] [id number] [address] Mar, [facility] [id number] [address] Mar, [facility] [id number], [place] [address] Mar, [facility] [id number] [place] [address] Feb, [facility] [id number] [place] [address]- [address] Feb, [facility] [id number] [address] Feb, [facility] [id number], [place] [address] Feb, [facility] [id number], [place] [address] Feb, [facility] [id number] [address] Jan, [facility] [id number] [address] Mar, [facility] [id number] [address] Mar, [facility] [id number] [address] Jan, IMMUNIZATIONS No Known Immunizations SOCIAL HISTORY Never Assessed REASON FOR VISIT PLAN OF CARE VITAL SIGNS MEDICATIONS Unknown [...] treatment for suicidal tendencies, cutter, burner, biter ([place] x2, [place] x1, [place] x3) Hospitalization History Acute Migraines/Vomiting 2014 Hospitalization History Childbirth 01/31/2016
--- OUTSIDE RECORDS SUMMARY | 2018-06-01 07:22 | XMS REPORT ---
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 78012275 Problem Borderline personality disorder F60.3 Active 74499991 Problem BMI 50.0-59.9, adult Z68.43 Active 274528110 Problem Other chronic pain G89.29 Active 90633602 Problem Morbid (severe) obesity due to excess calories E66.01 Active 071132635 Problem Body mass index (BMI) of 45.0-49.9 in adult Z68.42 Active 810930876 Problem Lumbago with sciatica, right side M54.41 Active 839719343354126 Problem Lumbago with sciatica, left side M54.42 Active 141591635 Problem History of long-term use of multiple prescription drugs Z92.29 Active 443630311 Problem Family history of hyperlipidemia Z83.49 Active 705010794 Problem Tobacco abuse Z72.0 Active 50330908 Problem Bipolar disorder F31.9 Active 72129033 Problem Schizophrenia F20.9 Active 78255268 Problem Moderate depressed bipolar I disorder F31.32 Active 78456109 Problem Moderate episode of recurrent major depressive disorder F33.1 Active 118984791 Problem Moderate persistent asthma without complication J45.40 Active 101897925 Problem BUTCH (generalized anxiety disorder) F41.1 Active 11788485 ALLERGIES Substance Reaction Event Type Date Status Viibryd rash Drug Allergy Nov, Active ENCOUNTERS Encounter Location Date Diagnosis [facility] [address] [facility] [id number] [place] [address] Dec, [place] [address] [address] Nov, BUTCH (generalized anxiety disorder) F41.1 ; 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 ; Borderline personality disorder F60.3 and Cannabis use disorder, mild, abuse F12.10 [place] [id number] [place] [address] 05892- 0227 July, BMI 50.0-59.9, adult Z68.43 ; Rash R21 ; Morbid (severe) obesity due to excess calories E66.01 and Infection, fungal, left foot B35.3 [place] [address] [place] [id number] [place] [address] 35046- 4534 May, [place] [address] [place] [id number] [place] [address] 81555- 4561 Mar, [place] [address] [place] [id number] [place] [address] 83868- 7331 Mar, [place] [address] [place] [id number] [place] [address] 28016- 8096 Mar, BUTCH (generalized anxiety disorder) F41.1 ; 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 ; Borderline personality disorder F60.3 ; Cannabis use disorder, mild, abuse F12.10 and BMI 45.0-49.9, adult Z68.42 [place] [id number] [place] [address] 86699- 5737 Feb, BMI 45.0-49.9, adult Z68.42 ; Lumbago with sciatica, left side M54.42 ; Lumbago with sciatica, right side M54.41 and Other chronic pain G89.29 [place] [address] [place] [id number] [place] [address] 37127- 1724 Feb, BUTCH (generalized anxiety disorder) F41.1 ; 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 ; Borderline personality disorder F60.3 and Cannabis use disorder, mild, abuse F12.10 [place] [address] [place] [id number] [place] [address] 41108- 7279 Jan, BUTCH (generalized anxiety disorder) F41.1 ; 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 ; Borderline personality disorder F60.3 and Cannabis use disorder, mild, abuse F12.10 [place] [id number] [place] [address] 49794- 4165 Dec, Cold intolerance R68.89 ; Morbid (severe) obesity due to excess calories E66.01 ; Screening for lipid disorders Z13.220 and Screening for diabetes mellitus (DM) Z13.1 [place] [id number] [place] [address] 65957- 8807 Dec, Body mass index (BMI) of 45.0-49.9 in adult Z68.42 ; Morbid (severe) obesity due to excess calories E66.01 ; Screening for diabetes mellitus (DM) Z13.1 ; Screening for lipid disorders Z13.220 and Cold intolerance R68.89 [place] [id number] [place] [address] 50013- 0270 Nov, BUTCH (generalized anxiety disorder) F41.1 ; 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 ; Borderline personality disorder F60.3 and Cannabis use disorder, mild, abuse F12.10 [place] [id number] [place] [address] 40329- 6951 Oct, [place] [id number] [place] [address] 49414- 2434 Oct, BUTCH (generalized anxiety disorder) F41.1 ; 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 ; Borderline personality disorder F60.3 and Cannabis use disorder, mild, abuse F12.[address] 35275- 2116 Sep, Encounter for test, result unknown Z32.00 [place] [id number] [place] [address] 53276- 8055 Aug, Low back pain M54.5 ; Dermatitis L30.9 ; Moderate episode of recurrent major depressive disorder F33.1 ; Morbid (severe) obesity due to excess calories E66.01 ; Body mass index (BMI) of 40.0-44.9 in adult Z68.41 and BMI 40.0-44.9, adult Z68.41 [place] [address] [place] [id number] [place] [address] 78671- 5018 Aug, [place] [address] 57612- 1326 Aug, [place] [address] 11447- 6233 Aug, Moderate depressed bipolar I disorder F31.32 ; Schizophrenia F20.9 and Bipolar disorder, current episode mixed, moderate F31.[address] 13933- 1883 May, Nexplanon insertion Z30.[address] 21230- 9158 Apr, History of long-term use of multiple prescription drugs Z92.29 ; Cannabis abuse F12.10 ; Moderate depressed bipolar I disorder F31.32 and Bipolar disorder, current episode mixed, moderate F31.62 [place] [address] 86909- 6907 Mar, Cannabis abuse F12.10 and Bipolar disorder F31.9 [place] [address] 17339- 8568 Mar, [address] 67244- 0791 Mar, exam Z39.[address] 23943- 8315 Feb, Bipolar disorder, current episode mixed, moderate F31.62 [place] [address] 67241- 7727 Feb, [address] [id number] [address] 23[address] Jan, [place] [address] [place] [id number] [place] [address] 99085- 6823 Jan, [place] [address] [place] [id number] [place] [address] 90165- 2109 Jan, care, subsequent in third trimester Z34.83 and 37 weeks gestation of Z3A.37 [place] [address] [place] [id number] [place] [address] 97849- 1921 17 Jan, 2016 Encounter for dental examination and cleaning without abnormal findings Z01.20 [place] [address] [place] [id number] [place] [address] 32654- 7945 Jan, [place] [address] [place] [id number] [place] [address] 91117- 0237 Jan, care, subsequent in third trimester Z34.83 and 36 weeks gestation of Z3A.36 [place] [address] [place] [address] 75938- 0209 03 Jan, 2016 Third trimester at less than 36 weeks Z33.1 ; screening for streptococcus B Z36 and 35 weeks gestation of Z3A.35 [place] [address] [place] [address] 47087- 5747 Dec, care, subsequent in third trimester Z34.83 and 34 weeks gestation of Z3A.34 [place] [address] [address]- 0555 Dec, [place] [address] [place] [address] 23519- 7538 Dec, Urine frequency R35.0 [place] [address] [place] [address] 58782- 3078 Dec, Urine frequency R35.0 [place] [address] [place] [address] 59380- 1490 Dec, Third trimester at less than 36 weeks Z33.1 ; 31 weeks gestation of Z3A.31 and Encounter for immunization Z23 [place] [address] [address] 0212 Dec, [place] [address] [address]- 0992 Nov, Third trimester at less than 36 weeks Z33.1 ; Encounter for immunization Z23 and 29 weeks gestation of Z3A.29 [place] [address] [address]- 7093 Nov, Second trimester Z33.1 and Diabetes mellitus screening Z13.1 [place] [address] [place] [id number] [place] [address] 19560- 5715 Oct, Second trimester Z33.1 and 23 weeks gestation of Z3A.23 [place] [address] [place] [id number] [place] [address] 21881- 6835 Oct, [place] [address] [address]- 6152 Sep, [place] [address] [place] [address] 10419- 2059 Sep, Second trimester Z33.1 ; 18 weeks gestation of Z3A.18 ; History of long-term use of multiple prescription drugs Z92.29 ; complicated by previous recurrent miscarriages, 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 and , high-risk, second trimester O09.92 [place] [address] [place] [id number] [address]- 4733 Aug, [place] [address] [place] [address] 62322- 7466 Aug, , high-risk, second trimester O09.92 and 14 weeks gestation of Z3A.14 [address] [address]- 5269 July, complicated by previous recurrent miscarriages, 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 [facility] [address] [place] [id number] [address]- 6941 July, , high-risk, second trimester O09.92 ; Moderate persistent asthma without complication J45.40 and 16 weeks gestation of Z3A.16 [facility] [address] [id number] [place] [address] July [facility] [address] [address]- 3585 July, [facility] [address] [address]- 3886 July, Moderate depressed bipolar I disorder F31.32 ; Cannabis abuse F12.10 and First trimester Z33.1 [facility] [address] [address]- 3124 Jun, [place] [address] [place] [address] 84300- 1313 Jun, [place] [address] [address] Jun, confirmed by positive urine test Z32.01 [place] [address] [address]- 6096 04 Jun, 2015 Moderate depressed bipolar I disorder F31.32 and Cannabis abuse F12.10 [place] [address] [address]- 8226 May, [facility] [address] [place] [id number] [address]- 6201 May, [facility] [address] [address]- 5971 May, Moderate depressed bipolar I disorder F31.32 and Cannabis abuse F12.10 [facility] [address] [place] [id number] [address]- 8626 May, Routine screening for STI (sexually transmitted infection) Z11.3 ; Moderate depressed bipolar I disorder F31.32 ; Unprotected sexual intercourse Z72.51 ; History of irregular menstrual bleeding Z87.42 ; Screening for malignant neoplasm of cervix Z12.4 and Vaginal discharge N89.[address] 49465- 2044 May, Moderate depressed bipolar I disorder F31.32 and Cannabis abuse F12.[address] 16843- 6237 Apr, History of long-term use of multiple prescription drugs Z92.[address] 09257- 1988 Apr, Tobacco abuse Z72.0 ; High risk bisexual behavior Z72.53 ; History of long-term use of multiple prescription drugs Z92.29 and Family history of hyperlipidemia Z83.[address] 81918- 3268 Apr, [address] 14912- 6094 Jan, Posttraumatic stress disorder F43.10 ; Borderline personality disorder F60.3 and Bipolar disorder with severe depression F31.[address] 89674- 5845 Nov, Bipolar I disorder, most recent episode (or current) mixed, moderate 296.62 ; Posttraumatic stress disorder 309.81 and Nondependent cannabis abuse, unspecified 305.[address] 56041- 0893 Nov, Posttraumatic stress disorder 309.81 ; Attention deficit 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.00 and Bipolar I disorder, most recent episode (or current) mixed, moderate 296.62 [place] [id number] [place] [address] 76355- 7326 Oct, [address] 08755- 6582 Sep, Family history of diabetes mellitus V18.0 ; Fatigue 780.79 ; Tobacco abuse 305.1 and Overweight 278.02 [facility] [address] [address]- 2984 Aug, [facility] [address] [address]- 1820 Aug, [facility] [address] [place] [address] 16105- 1463 Aug, [facility] [address] [place] [id number] [place] [address] 03494- 1266 Aug, Bipolar I disorder, most recent episode (or current) mixed, moderate 296.62 and Nondependent cannabis abuse, unspecified 305.20 [facility] [address] [place] [address] 27106- 4702 July, Bipolar I disorder, most recent episode (or current) mixed, moderate 296.62 ; Posttraumatic stress disorder 309.81 ; Attention deficit 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.00 and Nondependent cannabis abuse, unspecified 305.20 [facility] [address] [address]- 5151 July, [facility] [address] [place] [address] 78398- 0068 Jun, [facility] [address] [address]- 1746 Jun, [facility] [address] [place] [address] 52966- 4709 May, [facility] [address] [address]- 1628 May, [facility] [address] [place] [id number] [place] [address] 91893- 8048 May, [facility] [address] [address]- 9109 May, [facility] [address] [place] [id number] [place] [address] 87788- 3039 May, [facility] [address] [id number] [place] [address]- 6406 May, [facility] [place] [facility] [address] [id number] [place] [address]- 7353 Apr, [facility] [place] [facility] [address] [id number] [place] [address]- 7766 Apr, [facility] [place] [facility] [address] [id number] [place] [address]- 2798 Mar, [facility] [place] [facility] [address] [id number] [place] [address]- 9388 Mar, [facility] [place] [facility] [address] [id number] [place] [address]- 6818 Mar, [facility] [place] [facility] [address] [id number] [place] [address]- 5248 Mar, [facility] [place] [facility] [address] [id number] [place] [address]- 0798 Mar, [facility] [place] [facility] [address] [id number] [place] [address]- 1300 Mar, [facility] [place] [facility] [address] [facility] [id number] [place] [address]- 2828 Feb, [facility] [place] [facility] [address] [id number] [place] [address]- 8977 Feb, [facility] [place] [facility] [address] [id number] [place] [address]- 1173 Feb, [facility] [place] [facility] [address] [id number] [place] [address]- 7952 Feb, [facility] [place] [facility] [address] [id number] [place] [address]- 3942 Feb, [facility] [place] [facility] [address] [id number] [place] [address]- 8644 Feb, [facility] [place] [facility] [address] [id number] [place] [address]- 1380 Feb, [facility] [place] [facility] [address] [id number] [place] [address]- 5323 Jan, [facility] [place] [facility] [address] [id number] [place] [address]- 4382 Jan, [facility] [place] [facility] [address] [id number] [place] [address]- 6162 Jan, [facility] [place] [facility] [address] [id number] [place] [address]- 4377 Jan, [facility] [place] [facility] [address] [id number] [place] [address]- 2696 Jan, [facility] [place] [facility] [address] [id number] [place] 9123 Jan, [facility] [place] [facility] [address] [id number] [place] [address]- 1965 Dec, [facility] [place] [facility] [address] [id number] [place] [address]- 3423 Dec, [facility] [place] [facility] [address] [id number] [place] [address]- 0072 Dec, [facility] [place] [facility] [address] [id number] [place] [address]- 8580 Dec, [facility] [place] [facility] [address] [id number] [place] [address]- 7843 Dec, [facility] [place] [facility] [address] [id number] [place] [address]78 Dec, [facility] [place] [facility] [address] [id number] [place] [address]- 1006 Dec, [facility] [place] [facility] [address] [id number] [place] [address]- 1778 Dec, [facility] [place] [facility] [address] [id number] [place] [address]- 5512 Nov, [facility] [place] [facility] [address] [id number] [place] [address]- 1883 Nov, [facility] [place] [facility] [address] [id number] [place] [address]- 6776 Oct, [facility] [place] [facility] [address] [id number] [place] [address]- 8958 Oct, [facility] [place] [facility] [address] [id number] [place] [address]- 8787 Oct, [facility] [place] [facility] [address] [id number] [place] [address]- 3927 Aug, [facility] [place] [facility] [address] [id number] [place] [address]- 0439 Aug, [facility] [place] [facility] [address] [id number] [place] [address]- 1047 Aug, [facility] [place] [facility] [address] [id number] [place] [address]- 7355 Aug, [facility] [place] [facility] [address] [id number] [place] [address]- 5792 July, [facility] [place] [facility] [address] [id number] [place] [address]- 1432 July, [facility] [place] [facility] [address] [id number] [place] [address]- 4492 July, [facility] [place] [facility] [address] [id number] [address]- 4020 July, [facility] [place] [facility] [address] [id number] [place] [address]- 4505 July, [facility] [place] [facility] [address] [id number] [place] [address]- 6136 July, [facility] [place] [facility] [address] [id number] [place] [address]- 5759 Jun, [facility] [place] [facility] [address] [id number] [place] [address]- 4626 30 Jun, 2013 [facility] [address] [id number] [place] [address]- 1866 14 Jun, 2013 [facility] [address] [id number] [place] [address]- 5876 14 Jun, 2013 [facility] [address] [id number] [place] [address]- 2566 14 Apr, 2013 [facility] [place] [facility] [address] [id number] [place] [address]- 0599 Apr, [facility] [address] [id number] [place] 7832 Mar, [facility] [address] [id number] [place] [address]- 7551 Mar, [facility] [address] [id number] [place] [address]- 6909 Mar, [facility] [address] [id number] [place] [address]- 2177 Mar, [facility] [address] [id number] [place] [address]- 6990 16 Feb, 2013 [facility] [address] [id number] [place] [address]- 0208 16 Feb, 2013 [facility] [address] [id number] [place] [address]- 7266 13 Feb, 2013 [facility] [address] [id number] [place] [address]- 1079 13 Feb, 2013 [facility] [place] [facility] [address] [id number] [place] [address]- 8629 13 Feb, 2013 [facility] [place] [facility] [address] [id number] [place] [address]- 1560 13 Feb, 2013 [facility] [place] [facility] [address] [id number] [place] [address]- 5900 11 Feb, 2013 [facility] [place] [facility] [address] [id number] [place] [address]- 0055 Feb, [facility] [place] [facility] [address] [id number] [place] [address]- 6395 Feb, [facility] [place] [facility] [address] [id number] [place] 7183 Feb, [facility] [place] [facility] [address] [id number] [place] [address]- 5983 Feb, [facility] [place] [facility] [address] [id number] [place] [address]- 3811 Jan, [facility] [place] [facility] [address] [id number] [place] [address]- 7859 Jan, [facility] [place] [facility] [address] [id number] [place] [address]- 6755 Jan, [facility] [place] [facility] [address] [id number] [place] [address]- 1454 Jan, [facility] [place] [facility] [address] [id number] [place] [address]- 9191 Dec, [facility] [place] [facility] [address] [id number] [address]- 6157 18 Dec, 2012 [facility] [place] [facility] [address] [id number] [place] [address]- 4315 16 Dec, 2012 [facility] [place] [facility] [address] [id number] [place] [address]- 5635 16 Dec, 2012 [facility] [place] [facility] [address] [id number] [address]- 5202 Dec, [facility] [place] [facility] [address] [id number] [address]- 8142 10 Dec, 2012 [facility] [place] [facility] [address] [id number] [place] 8585 Oct, [facility] [place] [facility] [address] [id number] [place] [address] Oct, [facility] [address] [id number] [place] [address] Oct, [facility] [address] [id number] [place] [address] Oct, [facility] [address] [id number] [place] [address] Sep, [facility] [address] [id number] [place] [address] Sep, [facility] [address] [id number] [place] [address] Aug, [facility] [address] [id number] [place] [address] July, [facility] [address] [id number] [place] [address] Jun, [facility] [address] [id number] [place] [address] Jun, [facility] [address] [id number] [place] [address] Jun, [facility] [address] [id number] [place] [address] May, [facility] [address] [id number] [place] [address] May, [facility] [place] [facility] [address] [id number] [place] [address] May, [facility] [place] [facility] [address] [id number] [place] [address] Apr, [facility] [place] [facility] [address] [id number] [place] [address] Mar, [facility] [place] [facility] [address] [id number] [place] [address] Mar, [facility] [place] [facility] [address] [id number] [place] [address] 17 Mar, 2012 [facility] [place] [facility] [address] [id number] [place] [address] Feb, [facility] [place] [facility] [address] [id number] [place] [address] Feb, [facility] [place] [facility] [address] [id number] [place] [address] Feb, [facility] [place] [facility] [address] [id number] [place] [address] Feb, [facility] [place] [facility] [address] [id number] [place] [address] Jan, [facility] [place] [facility] [address] [id number] [place] [address] Jan, [facility] [place] [facility] [address] [id number] [place] [address] Jan, [facility] [place] [facility] [address] [id number] [place] [address] Dec, [facility] [place] [facility] [address] [id number] [place] [address] Dec, [facility] [facility] [address] [id number] [place] [address] Oct, [facility] [place] [facility] [address] [id number] [place] [address] Sep, [facility] [place] [facility] [address] [id number] [place] [address] Sep, [facility] [place] [facility] [address] [id number] [place] [address] July, [facility] [place] [facility] [address] [id number] [place] [address] July, [facility] [place] [facility] [address] [id number] [place] [address] 29 Jun, 2011 [facility] [address] [id number] [place] [address] 28 Jun, 2011 [facility] [place] [facility] [address] [id number] [place] [address] 27 Jun, 2011 [facility] [place] [facility] [address] [id number] [place] [address] Jun, [facility] [place] [facility] [address] [id number] [place] [address] 16 Apr, 2011 [facility] [place] [facility] [address] [id number] [place] [address] Apr, [facility] [place] [facility] [address] [id number] [place] [address] 24 Mar, 2011 [facility] [place] [facility] [address] [id number] [place] [address] Mar, [facility] [place] [facility] [address] [id number] [place] [address] Mar, [facility] [place] [facility] [address] [id number] [place] [address] Feb, [facility] [place] [facility] [address] [id number] [place] [address] Feb, [facility] [place] [facility] [address] [id number] [place] [address] Feb, [facility] [place] [facility] [address] [id number] [place] [address] Feb, [facility] [place] [facility] [address] [id number] [place] [address] Feb, [facility] [place] [facility] [address] [id number] [place] [address] Jan, [facility] [place] [facility] [address] [id number] [place] [address] 15 Mar, 2010 [facility] [place] [facility] [address] [facility] [id number] [place] [address] Mar, [facility] [address] [facility] [id number] [place] [address] Jan, IMMUNIZATIONS No Known Immunizations SOCIAL HISTORY Never Assessed REASON FOR VISIT f/u Aaron PLAN OF CARE Activity Details Follow Up 4 Weeks Reason: f/u VITAL SIGNS Height 66 in 2017-11-09 Weight 323.3 lbs 2017-11-09 Heart Rate 120 bpm 2017-11-09 Respiratory Rate 24 2017-11-09 BMI 52.18 kg/m2 2017-11-09 Blood pressure systolic 114 mmHg 2017-11-09 Blood pressure diastolic 74 mmHg 2017-11-09 MEDICATIONS Medication Instructions Dosage Frequency Start Date End Date Duration Status Pristiq 50 mg Orally Once a day 1 tablet 24h Nov, 30 day(s) Active Amitriptyline HCl 50 mg Orally Once a day at bedtime for sleep/migraines 1/2 to 1 tablet Jan, Active Flovent HFA 44 MCG/ACT Inhalation Twice a day 2 puffs 12h July, 30 days Active Nexplanon 68 MG Subcutaneous Placed 05/12/2016 as directed May, 3 years Active Albuterol Sulfate 90 mcg/actuation Inhalation every 6 hrs 2 puffs by Inhalation route every 6 hours as needed PRN cough or wheezing 6h May, 30 days Active Diclofenac Sodium 50 MG TAKE ONE TABLET BY MOUTH TWICE DAILY WITH FOOD OR MILK 30 Active RESULTS No Results PROCEDURES No Known procedures [...] treatment for suicidal tendencies, cutter, burner, biter ([place] x2, [place] x1, [place] x3) Hospitalization History Acute Migraines/Vomiting 2014 Hospitalization History Childbirth 01/31/2016
--- OUTSIDE RECORDS SUMMARY | 2018-06-01 07:23 | XMS REPORT ---
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 08192697 Problem Borderline personality disorder F60.3 Active 22622712 Problem BMI 50.0-59.9, adult Z68.43 Active 302554792 Problem Other chronic pain G89.29 Active 53585336 Problem Morbid (severe) obesity due to excess calories E66.01 Active 297817633 Problem Body mass index (BMI) of 45.0-49.9 in adult Z68.42 Active 057568588 Problem Lumbago with sciatica, right side M54.41 Active [id number] Problem Lumbago with sciatica, left side M54.42 Active 132370860 Problem History of long-term use of multiple prescription drugs Z92.29 Active 593271970 Problem Family history of hyperlipidemia Z83.49 Active 508141682 Problem Tobacco abuse Z72.0 Active 07351959 Problem Bipolar disorder F31.9 Active 36073363 Problem Schizophrenia F20.9 Active 74928717 Problem Moderate depressed bipolar I disorder F31.32 Active 57505953 Problem Moderate episode of recurrent major depressive disorder F33.1 Active 486553879 Problem Moderate persistent asthma without complication J45.40 Active 203409544 Problem BUTCH (generalized anxiety disorder) F41.1 Active 25676647 ALLERGIES Substance Reaction Event Type Date Status Viibryd rash Drug Allergy July, Active ENCOUNTERS Encounter Location Date Diagnosis [facility] [address] [facility] [id number] [address] July, BMI 50.0-59.9, adult Z68.43 ; Rash R21 ; Morbid (severe) obesity due to excess calories E66.01 and Infection, fungal, left foot B35.3 [place] [id number] [place] [address] 89760- 7967 May, [place] [address] [address] Mar, [place] [id number] [place] [address] 05131- 3660 Mar, [place] [id number] [place] [address] 74388- 7523 Mar, BUTCH (generalized anxiety disorder) F41.1 ; 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 ; Borderline personality disorder F60.3 ; Cannabis use disorder, mild, abuse F12.10 and BMI 45.0-49.9, adult Z68.42 [place] [id number] [place] [address] 05527- 2765 Feb, BMI 45.0-49.9, adult Z68.42 ; Lumbago with sciatica, left side M54.42 ; Lumbago with sciatica, right side M54.41 and Other chronic pain G89.29 [place] [id number] [place] [address] 75946- 3744 Feb, BUTCH (generalized anxiety disorder) F41.1 ; 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 ; Borderline personality disorder F60.3 and Cannabis use disorder, mild, abuse F12.10 [place] [id number] [place] [address] 21313- 0893 Jan, BUTCH (generalized anxiety disorder) F41.1 ; 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 ; Borderline personality disorder F60.3 and Cannabis use disorder, mild, abuse F12.10 [place] [address], [place] [address] Dec, Cold intolerance R68.89 ; Morbid (severe) obesity due to excess calories E66.01 ; Screening for lipid disorders Z13.220 and Screening for diabetes mellitus (DM) Z13.[address] [address]- [address] Dec, Body mass index (BMI) of 45.0-49.9 in adult Z68.42 ; Morbid (severe) obesity due to excess calories E66.01 ; Screening for diabetes mellitus (DM) Z13.1 ; Screening for lipid disorders Z13.220 and Cold intolerance R68.[address] 8[address]47- [address] Nov, BUTCH (generalized anxiety disorder) F41.1 ; 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 ; Borderline personality disorder F60.3 and Cannabis use disorder, mild, abuse F12.[address] [address]- [address]29 Oct, [address] [address]- 6264 Oct, BUTCH (generalized anxiety disorder) F41.1 ; 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 ; Borderline personality disorder F60.3 and Cannabis use disorder, mild, abuse F12.[address] 67112- 8611 Sep, Encounter for test, result unknown Z32.[address] 8[address]31- 6430 15 Aug, 2016 Low back pain M54.5 ; Dermatitis L30.9 ; Moderate episode of recurrent major depressive disorder F33.1 ; Morbid (severe) obesity due to excess calories E66.01 ; Body mass index (BMI) of 40.0-44.9 in adult Z68.41 and BMI 40.0-44.9, adult Z68.[address] 94488- 7789 Aug, [address] [place] [address] Aug, [facility] [address] [address] Aug, Moderate depressed bipolar I disorder F31.32 ; Schizophrenia F20.9 and Bipolar disorder, current episode mixed, moderate F31.62 [facility] [id number] [place] [address] 73822- 4639 May, Nexplanon insertion Z30.017 [place] [address] 36039- 6885 Apr, History of long-term use of multiple prescription drugs Z92.29 ; Cannabis abuse F12.10 ; Moderate depressed bipolar I disorder F31.32 and Bipolar disorder, current episode mixed, moderate F31.62 [place] [id number] [place] [address] 37190- 2021 Mar, Cannabis abuse F12.10 and Bipolar disorder F31.9 [place] [address] 77093- 9732 Mar, [place] [address] 95340- 4120 Mar, exam Z39.2 [place] [address] 43684- 4515 Feb, Bipolar disorder, current episode mixed, moderate F31.62 [place] [id number] [place] [address] 45956- 2176 Feb, [place] [id number] [place] [address] 03283- 6932 Jan, [place] [address] 89717- 4255 Jan, [facility] [id number] [place] [address] 27915- 6344 Jan, care, subsequent in third trimester Z34.83 and 37 weeks gestation of Z3A.37 [place] [address], [place] [address] 17 Jan, 2016 Encounter for dental examination and cleaning without abnormal findings Z01.20 [place] [id number] [place] [address] 75384- 1299 10 Jan, 2016 [place] [id number] [place] [address] 04584- 1103 10 Jan, 2016 care, subsequent in third trimester Z34.83 and 36 weeks gestation of Z3A.36 [place] [id number] [place] [address] 67537- 5679 03 Jan, 2016 screening for streptococcus B Z36 ; Third trimester at less than 36 weeks Z33.1 and 35 weeks gestation of Z3A.35 [place] [id number] [place] [address] 41412- 6761 21 Dec, 2015 care, subsequent in third trimester Z34.83 and 34 weeks gestation of Z3A.34 [place] [id number] [place] [address] 84080- 2774 18 Dec, 2015 [place] [id number] [place] [address] 64065- 3160 Dec, Urine frequency R35.0 [place] [id number] [place] [address] 75815- 5667 Dec, Urine frequency R35.0 [place] [id number] [place] [address] 66597- 2200 Dec, Third trimester at less than 36 weeks Z33.1 ; 31 weeks gestation of Z3A.31 and Encounter for immunization Z23 [place] [id number] [place] [address] 87573- 9693 Dec, [place] [id number] [place] [address] 86731- 6918 Nov, Third trimester at less than 36 weeks Z33.1 ; Encounter for immunization Z23 and 29 weeks gestation of Z3A.29 [place] [id number] [address] Nov, Second trimester Z33.1 and Diabetes mellitus screening Z13.1 [place] [address], [place] [address] Oct, Second trimester Z33.1 and 23 weeks gestation of Z3A.23 [place] [address], [place] [address] 9770 Oct, [place] [address], [place] [address]- 6562 Sep, [place] [address], [place] [address]- 20[address] Sep, Second trimester Z33.1 ; History of long-term use of multiple prescription drugs Z92.29 ; , high-risk, second trimester O09.92 ; complicated by previous recurrent miscarriages, 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 and 18 weeks gestation of Z3A.18 [place] [address], [place] [address]- [address] Aug, [place] [address], [place] [address]- 2637 Aug, , high-risk, second trimester O09.92 and 14 weeks gestation of Z3A.14 [place] [address], [place] [address]- 7[address] July, complicated by previous recurrent miscarriages, 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 [place] [address] [facility] [id number], [place] [address] July, , high-risk, second trimester O09.92 ; Moderate persistent asthma without complication J45.40 and 16 weeks gestation of Z3A.16 [facility] [address] [id number] JULIET PETERS [address] July [place] [id number] [address] July, [facility] [id number] [place] [address] 59488- 3513 July, Moderate depressed bipolar I disorder F31.32 ; Cannabis abuse F12.10 and First trimester Z33.1 [place] [id number] [place] [address] 70481- 0874 Jun, [place] [id number] [place] [address] 70162- 8922 Jun, [place] [id number] [place] [address] 51652- 5661 Jun, confirmed by positive urine test Z32.01 [place] [id number] [place] [address] 31811- 6748 Jun, Moderate depressed bipolar I disorder F31.32 and Cannabis abuse F12.10 [place] [id number] [place] [address] 76054- 9188 May, [place] [id number] [place] [address] 75321- 5976 May, [place] [id number] [place] [address] 43072- 6127 May, Moderate depressed bipolar I disorder F31.32 and Cannabis abuse F12.10 [place] [id number] [place] [address] 76421- 0534 May, Routine screening for STI (sexually transmitted infection) Z11.3 ; Moderate depressed bipolar I disorder F31.32 ; Unprotected sexual intercourse Z72.51 ; History of irregular menstrual bleeding Z87.42 ; Screening for malignant neoplasm of cervix Z12.4 and Vaginal discharge N89.8 [place] [address] [place] [address] 31694- 9538 May, Moderate depressed bipolar I disorder F31.32 and Cannabis abuse F12.10 [place] [id number] [place] [address] 57046- 0044 Apr, History of long-term use of multiple prescription drugs Z92.29 [place] [id number] [place] [address] 90689- 0764 Apr, Tobacco abuse Z72.0 ; High risk bisexual behavior Z72.53 ; History of long-term use of multiple prescription drugs Z92.29 and Family history of hyperlipidemia Z83.[address] 34542- 3038 Apr, [address] 70071- 7491 Jan, Posttraumatic stress disorder F43.10 ; Borderline personality disorder F60.3 and Bipolar disorder with severe depression F31.4 [place] [id number] [place] [address] 73859- 0287 14 Nov, 2014 Bipolar I disorder, most recent episode (or current) mixed, moderate 296.62 ; Posttraumatic stress disorder 309.81 and Nondependent cannabis abuse, unspecified 305.20 [place] [id number] [place] [address] 52741- 6587 Nov, Posttraumatic stress disorder 309.81 ; Attention deficit 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.00 and Bipolar I disorder, most recent episode (or current) mixed, moderate 296.62 [place] [id number] [place] [address] 10329- 7877 Oct, [place] [id number] [place] [address] 11747- 1415 Sep, Family history of diabetes mellitus V18.0 ; Fatigue 780.79 ; Tobacco abuse 305.1 and Overweight 278.[address] 02207- 1816 Aug, [place] [id number] [place] [address] 08998- 4879 Aug, [address] 40956- 7459 Aug, [facility] [address], [place] [address]- 2[address] Aug, Bipolar I disorder, most recent episode (or current) mixed, moderate 296.62 and Nondependent cannabis abuse, unspecified 305.20 [facility] [address], [place] [address]- 6486 July, Bipolar I disorder, most recent episode (or current) mixed, moderate 296.62 ; Posttraumatic stress disorder 309.81 ; Attention deficit 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.00 and Nondependent cannabis abuse, unspecified 305.20 [facility] [address] [place] [address] 06301- 5625 July, [facility] [id number] [place] [address] 28593- 5627 Jun, [facility] [id number] [place] [address] 21715- 8443 Jun, [facility] [address], [place] [address]- 8207 May, [facility] [address] [place] [address] 96684- 4544 May, [facility] [address], [place] [address]- 7701 May, [facility] [address], [place] [address]- 1090 May, [facility] [address], [place] [address]- 5102 May, [facility] [address] 6606 May, [facility] [address] 3760 Apr, [facility] [address] [address] Apr, [facility] [address] [id number] [place] [address]- 2627 Mar, [facility] [place] [facility] [address] [id number] [place] [address]- 2686 Mar, [facility] [place] [facility] [address] [id number] [place] [address]- 3530 Mar, [facility] [place] [facility] [address] [id number] [place] [address]- 7298 Mar, [facility] [place] [facility] [address] [id number] [place] [address]- 5523 Mar, [facility] [place] [facility] [address] [id number] [place] [address]- 1780 Mar, [facility] [place] [facility] [address] [id number] [place] [address]- 2839 Feb, [facility] [place] [facility] [address] [id number] [place] [address]- 2114 Feb, [facility] [place] [facility] [address] [id number] [place] [address]- 7654 Feb, [facility] [place] [facility] [address] [id number] [place] [address]- 8880 Feb, [facility] [place] [facility] [address] [id number] [place] [address]- 7575 Feb, [facility] [place] [facility] [address] [id number] [place] [address]- 5967 Feb, [facility] [place] [facility] [address] [id number] [place] [address]- 1277 Feb, [facility] [place] [facility] [address] [id number] [place] [address]- 3724 Jan, [facility] [place] [facility] [address] [id number] [place] [address]- 4682 Jan, [facility] [place] [facility] [address] [id number], [place] [address]- 7920 Jan, [facility] [place] [facility] [address] [id number] [place] [address]- 8951 Jan, [facility] [place] [facility] [address] [id number] [place] [address]- 6893 Jan, [facility] [place] [facility] [address] [id number] [place] [address]- 8809 Jan, [facility] [place] [facility] [address] [id number] [place] [address]- 2387 Dec, [facility] [place] [facility] [address] [id number] [place] [address]- 2991 Dec, [facility] [place] [facility] [address] [id number] [place] [address]- 8758 Dec, [facility] [place] [facility] [address] [id number] [place] [address]- 0543 Dec, [facility] [place] [facility] [address] [id number] [place] [address]- 0853 Dec, [facility] [place] [facility] [address] [id number] [place] [address]- 2192 Dec, [facility] [place] [facility] [address] [id number] [place] [address]- 8767 Dec, [facility] [place] [facility] [address] [id number], [place] [address]- 7523 Dec, [facility] [place] [facility] [address] [id number], [place] [address]- 7178 Nov, [facility] [place] [facility] [address] [id number] [place] [address]- 4703 Nov, [facility] [place] [facility] [address] [id number] [place] [address]- 8059 Oct, [facility] [place] [facility] [address] [id number] [place] [address]- 9997 Oct, [facility] [place] [facility] [address] [id number] [place] [address]- 2463 Oct, [facility] [place] [facility] [address] [id number] [place] [address]- 7447 Aug, [facility] [place] [facility] [address] [id number] [place] [address]- 1486 Aug, [facility] [place] [facility] [address] [id number] [place] [address]- 2451 Aug, [facility] [place] [facility] [address] [id number] [place] [address]- 2563 Aug, [facility] [place] [facility] [address] [id number] [place] [address]- 2128 July, [facility] [place] [facility] [address] [id number] [place] [address]- 7078 July, [facility] [place] [facility] [address] [id number] [place] [address]- 9991 July, [facility] [place] [facility] [address] [id number] [place] [address]- 7306 July, [facility] [place] [facility] [address] [id number] [place] [address]- 9072 July, [facility] [place] [facility] [address] [id number] [place] [address]- 8154 July, [facility] [place] [facility] [address] [id number] [place] [address]- 2686 Jun, [facility] [place] [facility] [address] [id number] [place] [address]- 7973 Jun, [facility] [place] [facility] [address] [id number] [place] [address]- 8389 Jun, [facility] [place] [facility] [address] [id number] [place] [address]- 4047 Jun, [facility] [place] [facility] [address] [id number] [place] [address]- 2804 14 Apr, 2013 [facility] [address] [id number] [place] [address]- 6491 14 Apr, 2013 [facility] [place] [facility] [address] [id number] [place] [address]- 7915 Mar, [facility] [place] [facility] [address] [id number] [place] [address]- 9997 Mar, [facility] [place] [facility] [address] [id number] [place] [address]- 2156 Mar, [facility] [place] [facility] [address] [id number] [place] [address]- 3828 Mar, [facility] [place] [facility] [address] [id number] [place] [address]- 4628 16 Feb, 2013 [facility] [place] [facility] [address] [id number] [place] [address]- 2121 16 Feb, 2013 [facility] [place] [facility] [address] [id number] [place] [address]- 1335 13 Feb, 2013 [facility] [place] [facility] [address] [id number] [place] [address]- 8510 13 Feb, 2013 [facility] [place] [facility] [address] [id number] [place] [address]- 5203 13 Feb, 2013 [facility] [place] [facility] [address] [id number], [place] [address]- 4212 13 Feb, 2013 [facility] [place] [facility] [address] [id number], [place] [address]- 3366 11 Feb, 2013 [facility] [place] [facility] [address] [id number] [place] 0039 11 Feb, 2013 [facility] [place] [facility] [address] [id number] [place] [address]- 1219 04 Feb, 2013 [facility] [place] [facility] [address] [id number] [place] [address]- 0124 03 Feb, 2013 [facility] [place] [facility] [address] [id number] [place] [address]- 6047 Feb, [facility] [place] [facility] [address] [id number] [place] [address]- 9203 Jan, [facility] [place] [facility] [address] [id number] [place] [address]- 5454 Jan, [facility] [place] [facility] [address] [id number] [place] 8219 Jan, [facility] [place] [facility] [address] [id number] [place] [address]- 2008 Jan, [facility] [place] [facility] [address] [id number] [place] [address]- 1929 Dec, [facility] [place] [facility] [address] [id number] [place] [address]- 1490 Dec, [facility] [place] [facility] [address] [id number] [place] [address]- 4503 Dec, [facility] [place] [facility] [address] [id number] [place] [address]- 5519 Dec, [facility] [place] [facility] [address] [id number] [place] [address]- 2608 Dec, [facility] [place] [facility] [address] [id number] [place] [address]- 4952 Dec, [facility] [place] [facility] [address] [id number] [place] [address]- 3066 Oct, [facility] [place] [facility] [address] [id number] [place] [address]- 6743 Oct, [facility] [place] [facility] [address] [id number] [place] [address]- 5654 Oct, [facility] [place] [facility] [address] [id number] [place] [address]- 7257 Oct, [facility] [place] [facility] [address] [id number] [place] 0633 Sep, [facility] [place] [facility] [address] [id number] [place] [address]- 4901 Sep, [facility] [address] [id number] [place] [address]- 2817 Aug, [facility] [address] [id number] [place] [address]- 2546 July, [facility] [address] [id number] [place] [address]- 4918 Jun, [facility] [address] [id number] [place] [address]- 0[address] Jun, [facility] [address] [id number] [place] [address] Jun, [facility] [address] [id number] [place] [address] May, [facility] [address] [id number] [place] [address] May, [facility] [address] [id number] [place] [address] May, [facility] [address] [id number] [place] [address] Apr, [facility] [address] [id number] [place] [address] Mar, [facility] [address] [id number] [place] [address] Mar, [facility] [address] [id number] [place] [address] Mar, [facility] [address] [id number] [place] [address] Feb, [facility] [address] [id number] [place] [address] Feb, [facility] [address] [id number] [place] [address] Feb, [facility] [place] [facility] [address] [id number] [place] [address] Feb, [facility] [place] [facility] [address] [id number] [place] [address] Jan, [facility] [place] [facility] [address] [id number] [place] [address] Jan, [facility] [place] [facility] [address] [id number] [place] [address] Jan, [facility] [place] [facility] [address] [id number] [place] [address] Dec, [facility] [place] [facility] [address] [id number] [place] [address] Dec, [facility] [place] [facility] [address] [id number] [place] [address] Oct, [facility] [place] [facility] [address] [id number] [place] [address] Sep, [facility] [place] [facility] [address] [id number] [place] [address] Sep, [facility] [place] [facility] [address] [id number] [place] [address] July, [facility] [place] [facility] [address] [id number] [place] [address] July, [facility] [place] [facility] [address] [id number] [place] [address] Jun, [facility] [place] [facility] [address] [id number] [place] [address] Jun, [facility] [place] [facility] [address] [id number] [place] [address] Jun, [facility] [place] [facility] [address] [id number] [place] [address] Jun, [facility] [place] [facility] [id number] [address] Apr, [facility] [id number] [address] Apr, [facility] [id number] [address] Mar, [facility] [id number], [place] [address] Mar, [facility] [address] [facility] [id number] [address] Mar, [facility] [id number], [place] [address] Feb, [facility] [id number] [address] Feb, [facility] [id number], [place] [address] Feb, [facility] [id number] [address] Feb, [facility] [id number] [address] Feb, [facility] [id number] [address] Jan, [facility] [id number], [place] [address] Mar, [facility] [id number] [address] Mar, [facility] [id number], [place] [address] Jan, IMMUNIZATIONS No Known Immunizations SOCIAL HISTORY Never Assessed REASON FOR VISIT Thyroid-mpolshakma, Left foot blisters with itching and scabbing PLAN OF CARE Activity Details Follow Up 3 Months with Leonila for weight management Reason: VITAL SIGNS Height 66 in 2017-07-18 Weight 322.8 lbs 2017-07-18 Temperature 98.4 degrees Fahrenheit 2017-07-18 Heart Rate 100 bpm 2017-07-18 Respiratory Rate 20 2017-07-18 BMI 52.10 kg/m2 2017-07-18 Blood pressure systolic 130 mmHg 2017-07-18 Blood pressure diastolic 90 mmHg 2017-07-18 MEDICATIONS Medication Instructions Dosage Frequency Start Date End Date Duration Status Clindamycin HCl 300 MG Orally 3 times a day 1 capsule 8h July, July, 07 days Active Nexplanon 68 MG Subcutaneous Placed 05/12/2016 as directed May, 3 years Active Lexapro 20 MG Orally Once a day 1 tablet 24h Active Albuterol Sulfate 90 mcg/actuation Inhalation every 6 hrs 2 puffs by Inhalation route every 6 hours as needed PRN cough or wheezing 6h May, 30 days Active Flovent HFA 44 MCG/ACT Inhalation Twice a day 2 puffs 12h July, 30 days Active Amitriptyline HCl 50 mg Orally Once a day at bedtime for sleep/migraines /2 to 1 tablet Jan, Active BusPIRone HCl 10 mg Orally 3 times a day 2 tablets 8h Feb, Active RESULTS No Results PROCEDURES No Known [...] treatment for suicidal tendencies, cutter, burner, biter ([place] x2, [place] x1, [place] x3) Hospitalization History Acute Migraines/Vomiting 2014 Hospitalization History Childbirth 01/31/2016
--- OUTSIDE RECORDS SUMMARY | 2018-06-01 07:23 | XMS REPORT ---
Author Author MAGUE IGLESIAS eClinicalWorks Address Unknown Phone Unavailable Care Team Providers Care Electric Cutter Operator Name Role Phone MAGUE IGLESIAS Unavailable Allergies No Known Allergies Problems Problem Type Condition Code Onset Dates Condition Status Problem History of long-term use of multiple prescription drugs Z92.29 Active Problem Tobacco abuse Z72.0 Active Problem High risk bisexual behavior Z72.53 Active Problem Second trimester Z33.1 Active Problem Moderate persistent asthma without complication J45.40 Active Problem , high-risk, second trimester O09.92 Active Problem Moderate depressed bipolar I disorder F31.32 Active Problem Cannabis abuse F12.10 Active Problem Elevated blood pressure affecting in second trimester, antepartum O13.2 Active Problem complicated by previous recurrent miscarriages, 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 Assessment Third trimester at less than 36 weeks Z33.1 Active Problem Underimmunization status Z28.3 Active Assessment Encounter for immunization Z23 Active Problem Oth diseases and conditions compl preg/chldbrth O99.89 Active Assessment 31 weeks gestation of Z3A.31 Active Problem Family history of hyperlipidemia Z83.49 Active Medications Medication Code System Code Instructions Start Date End Date Status Dosage Albuterol Sulfate [facility] [address]-27 90 mcg/actuation May 14, 2014 2 puffs by Inhalation route every 6 hours as needed PRN cough or wheezing [facility] [address]68 28-0.8 MG Orally daily July 15, 2015 1 Flovent HFA [facility] [address]-18 44 MCG/ACT Inhalation Twice a day July 15, 2015 2 puffs Procedures Procedure Coding System Code Date Office Visit, Est Pt., Level 2 CPT-4 43890 Dec 11, 2015 TDAP (BOOSTRIX) CPT-4 63464 Dec 11, 2015 URINE-NO MICRO CPT-4 56961 Dec 11, 2015 SINGLE IMMUNIZATION ADMIN CPT-4 82666 Dec 11, 2015 Vital Signs Date/Time: Dec 11, 2015 Cardiac Monitoring Heart Rate 84 bpm Weight 269.3 lbs Height 66 in BMI 43.466 Index Blood Pressure Diastolic 79 mmHg Blood Pressure Systolic 138 mmHg Results No Known Results Immunizations Vaccine Administration Date TDAP (BOOSTRIX) Dec 11, 2015 Summary Purpose eClinicalWorks Submission
--- OUTSIDE RECORDS SUMMARY | 2018-06-01 07:23 | XMS REPORT ---
Author Author MAGUE IGLESIAS eClinicalWorks Address Unknown Phone Unavailable Care Team Providers Care Cleaning Professional Name Role Phone MAGUE IGLESIAS CP Unavailable Allergies No Known Allergies Problems Problem [...] previous recurrent miscarriages, 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 Problem Underimmunization status Z28.3 Active Problem Oth diseases and conditions compl preg/chldbrth O99.89 Active Problem Family history of hyperlipidemia Z83.49 Active Medications No Known Medications Results No Known Results Summary Purpose eClinicalWorks Submission
--- OUTSIDE RECORDS SUMMARY | 2018-06-01 07:23 | XMS REPORT ---
Author Author ANNA CHATMAN eClinicalWorks Address Unknown Phone Unavailable Care Team Providers Care Mental Health Director Name Role Phone ANNA CHATMAN CP Unavailable Allergies No Known Allergies Problems Problem Type Condition ICD-9 Code Onset Dates Condition Status Problem Lumbago 724.2 Active Problem Unspecified backache 724.5 Active Problem Other disorder of menstruation and other abnormal bleeding from female genital tract 626.8 Active Problem Attention deficit 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.00 Active Problem Bipolar I disorder, most recent episode (or current) mixed, moderate 296.62 Active Problem Nondependent cannabis abuse, unspecified 305.20 Active Problem Other malaise and fatigue 780.79 Active Problem Acute bronchitis 466.0 Active Problem Posttraumatic stress disorder 309.81 Active Problem Asthma, unspecified, unspecified status 493.90 Active Assessment Bipolar I disorder, most recent episode (or current) mixed, moderate 296.62 Active Problem examination or test, unconfirmed V72.40 Active Assessment Nondependent cannabis abuse, unspecified 305.20 Active Assessment Posttraumatic stress disorder 309.81 Active Problem Nausea alone 787.02 Active Problem General counseling for prescription of oral contraceptives V25.01 Active Problem Abdominal pain, unspecified site 789.00 Active Problem Counseling on other sexually transmitted diseases V65.45 Active Problem Other and unspecified noninfectious gastroenteritis and colitis 558.9 Active Problem Abnormal weight gain 783.1 Active Medications No Known Medications Procedures Procedure Coding System Code Date Psychotherapy, patient &/family, 45 minutes, established patient CPT-4 11035 Nov 18, 2014 Results No Known Results Summary Purpose eClinicalWorks Submission
--- OUTSIDE RECORDS SUMMARY | 2018-06-01 07:24 | XMS REPORT ---
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 Assessment Second trimester Z33.1 Active Problem Underimmunization status Z28.3 Active Assessment History of long-term use of multiple prescription drugs Z92.29 Active Problem Oth diseases and conditions compl preg/chldbrth O99.89 Active Assessment 18 weeks gestation of Z3A.18 Active Problem Family history of hyperlipidemia Z83.49 Active Medications Medication Code System Code Instructions Start Date End Date Status Dosage Flovent HFA [facility] [address]-69 44 MCG/ACT Inhalation Twice a day July 15, 2015 2 puffs Zoloft [facility] [address]-69 100 MG Orally Once a day Jan 15, 2015 1 tablet [facility] [address]90 28-0.8 MG Orally daily July 15, 2015 1 Albuterol Sulfate [facility] [address]-38 90 mcg/actuation May 14, 2014 2 puffs by Inhalation route every 6 hours as needed PRN cough or wheezing Procedures Procedure Coding System Code Date Office Visit, Est Pt., Level 2 CPT-4 68245 September 11, 2015 LAB NOT BILLED BY [facility] CPT-4 NOBLL September 11, 2015 URINE-NO MICRO CPT-4 85675 September 11, 2015 VENIPUNCT, ROUTINE* CPT-4 93443 September 11, 2015 Vital Signs Date/Time: September 11, 2015 Cardiac Monitoring Heart Rate 88 bpm Weight 260.9 lbs Height 66 in Blood Pressure Diastolic 77 mmHg Blood Pressure Systolic 134 mmHg Results No Known Results Summary Purpose eClinicalWorks Submission
--- OUTSIDE RECORDS SUMMARY | 2018-06-01 07:24 | XMS REPORT ---
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 503146533 Problem Moderate depressed bipolar I disorder F31.32 Active 90603276 Problem Moderate persistent asthma without complication J45.40 Active 122513013 Problem Elevated blood pressure affecting in second trimester, antepartum O13.2 Active 69274237 Assessment 29 weeks gestation of Z3A.29 22 Nov, 2015 Active 02328743 Problem Underimmunization status Z28.3 Active 076864126 Problem Oth diseases and conditions compl preg/chldbrth O99.89 Active 966855198 Assessment Encounter for immunization Z23 22 Nov, 2015 Active 791883429 Problem Family history of hyperlipidemia Z83.49 Active 725701116 Assessment Third trimester at less than 36 weeks Z33.1 Nov, Active 140917388 Problem History of long-term use of multiple prescription drugs Z92.29 Active 810368630 ALLERGIES Unknown Allergies SOCIAL HISTORY No smoking Hx information available PLAN OF CARE VITAL SIGNS Height 66 in 2015-11-27 Weight 270.9 lbs 2015-11-27 Heart Rate 86 bpm 2015-11-27 Respiratory Rate 20 2015-11-27 BMI 43.724 kg/m2 2015-11-27 Blood pressure systolic 137 mmHg 2015-11-27 Blood pressure diastolic 78 mmHg 2015-11-27 MEDICATIONS Medication Instructions Dosage Frequency Start Date End Date Duration Status Zoloft 100 MG Orally Once a day 1 tablet 24h 11 Jan, 2015 Active Albuterol Sulfate 90 mcg/actuation 2 puffs by Inhalation route every 6 hours as needed PRN cough or wheezing May, Active 28-0.8 MG Orally daily 1 24h July, Active Flovent HFA 44 MCG/ACT Inhalation Twice a day 2 puffs 12h July, Active RESULTS Name Result Date Reference Range UA LONG DIP (IN HOUSE) 2015-11-27 Lot # [id number] Exp date Clarity Clear Color Dark Yellow Odor Strong GLU Negative RAMIREZ Negative KET Trace SG 1.025 BLO Negative pH 7.0 Protein Negative URO 0.2 NIT Negative JENN Negative Lot # Exp date CULTURE, URINE 2015-11-27 Urine Culture, Routine Final report Result 1 No growth PROCEDURES Procedure Date Ordered Related Diagnosis Body Site URINALYSIS, AUTO, W/O SCOPE Nov 27, 2015 LAB NOT BILLED BY [facility] Nov 27, 2015 SINGLE IMMUNIZATION ADMIN Nov 27, 2015 FLUARIX QUAD P-FREE 3 AND UP .50 2015Nov 27, 2015 Office Visit, Est Pt., Level 3 Nov 27, 2015 IMMUNIZATIONS Vaccine Route Administration Date Status FLUARIX QUAD P-FREE 3 AND UP .50 2015 IM Intramuscular Nov 27, 2015 Administered
--- OUTSIDE RECORDS SUMMARY | 2018-06-01 07:24 | XMS REPORT ---
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
--- OUTSIDE RECORDS SUMMARY | 2018-06-01 07:25 | XMS REPORT ---
Author Author SAMIA CARLOS Organization eClinicalWorks Address Unknown Phone Unavailable Care Team Providers Care Meat Carver Name Role Phone SAMIA CARLOS CP Unavailable Allergies No Known Allergies Problems Problem Type Condition Code Onset Dates Condition Status Problem Cannabis abuse F12.10 Active Problem Tobacco abuse Z72.0 Active Problem Moderate depressed bipolar I disorder F31.32 Active Problem Family history of hyperlipidemia Z83.49 Active Problem High risk bisexual behavior Z72.53 Active Problem History of long-term use of multiple prescription drugs Z92.29 Active Medications No Known Medications Results No Known Results Summary Purpose eClinicalWorks Submission
--- OUTSIDE RECORDS SUMMARY | 2018-06-01 07:25 | XMS REPORT ---
Author Author MAGUE IGLESIAS eClinicalWorks Address Unknown Phone Unavailable Care Team Providers Care Camera Storage Clerk Name Role Phone MAGUE IGLESIAS Unavailable Allergies [...] hyperlipidemia Z83.49 Active Medications No Known Medications Procedures Procedure Coding System Code Date [facility] NOBLL Dec 23, 2015 URINALYSIS, AUTO, W/O SCOPE CPT-4 03495 Dec 23, 2015 Results Name Result Date Reference Range Unit Abnormality Flag UA W/CULTURE IF INDICATED (IN HOUSE) ----JENN Trace 20151223 ----NIT Negative 20151223 ----Exp date 20151223 ----Lot # [id number] ----SG 1.020 20151223 ----KET Negative 20151223 ----RAMIREZ Negative 20151223 ----GLU Negative 20151223 ----Odor no 20151223 ----pH 7.5 20151223 ----BLO Negative 20151223 ----URO 1.0 eu/dl 20151223 ----Protein Negative 20151223 ----Lot # [id number] 20151223 ----Exp date 20151223 ----Clarity clear 20151223 ----Color dark yellow 20151223 Summary Purpose eClinicalWorks Submission
--- OUTSIDE RECORDS SUMMARY | 2018-06-01 07:25 | XMS REPORT ---
Author Author SAMIA Portillo Organization [facility] Address Unknown Care Team Providers Care Assembler Cards And Announcements Name Role Phone SAMIA Portillo Unavailable PROBLEMS Type Condition ICD9-CM Code [id number] Code Onset Dates Condition Status SNOMED Code Problem Moderate depressed bipolar I disorder F31.32 Active 84416836 Problem Bipolar disorder, current episode mixed, moderate F31.62 Active 078193322 Problem Moderate persistent asthma without complication J45.40 Active 459174457 Problem Family history of hyperlipidemia Z83.49 Active 779501713 Problem History of long-term use of multiple prescription drugs Z92.29 Active 061823492 Problem Tobacco abuse Z72.0 Active 88466106 Problem High risk bisexual behavior Z72.53 Active 774238799 Problem Borderline personality disorder F60.3 Active 66124529 Problem BUTCH (generalized anxiety disorder) F41.1 Active 43233134 Problem Schizophrenia F20.9 Active 65983216 Problem Bipolar disorder F31.9 Active 65607957 Problem Cannabis use disorder, mild, abuse F12.10 Active 22875214 Problem 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 46309935 ALLERGIES Unknown Allergies SOCIAL HISTORY No smoking Hx information available PLAN OF CARE Activity Details Follow Up 4 Weeks Reason: VITAL SIGNS Height 66 in 2016-04-05 Weight 249.7 lbs 2016-04-05 Heart Rate 80 bpm 2016-04-05 Respiratory Rate 20 2016-04-05 BMI 40.30 kg/m2 2016-04-05 Blood pressure systolic 110 mmHg 2016-04-05 Blood pressure diastolic 66 mmHg 2016-04-05 MEDICATIONS Medication Instructions Dosage Frequency Start Date End Date Duration Status Flovent HFA 44 MCG/ACT Inhalation Twice a day 2 puffs 12h July, Active Albuterol Sulfate 90 mcg/actuation 2 puffs by Inhalation route every 6 hours as needed PRN cough or wheezing May, Active Lexapro 10 MG Orally Once a day 1 tablet 24h Feb, 30 days Active BusPIRone HCl 15 MG Orally Three times a day 1 tablet 8h Feb, 30 days Active RESULTS No Results PROCEDURES Procedure Date Ordered Related Diagnosis Body Site MH Office Visit, Est Pt., Level 3 Apr 05, 2016 IMMUNIZATIONS No Known Immunizations
--- OUTSIDE RECORDS SUMMARY | 2018-06-01 07:25 | XMS REPORT ---
Author Author HARRIS MAGUE [facility] Address [address] [place] [address] Care Team Providers Care Home And Family Living Professor Name Role Phone DAYAN IGLESIASHANY Unavailable PROBLEMS Type Condition ICD9-CM Code [id number] Code Onset Dates Condition Status SNOMED Code Problem High risk bisexual behavior Z72.53 Active 807166699 Problem Cannabis abuse F12.10 Active 24253654 Problem Tobacco abuse Z72.0 Active 98292597 Problem , high-risk, second trimester O09.92 Active 38911776 Problem Second trimester Z33.1 Active 21005798 Problem complicated by previous recurrent miscarriages, 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 833929841 Problem Moderate depressed bipolar I disorder F31.32 Active 43822526 Problem Moderate persistent asthma without complication J45.40 Active 088660943 Problem Elevated blood pressure affecting in second trimester, antepartum O13.2 Active 93196669 Problem Underimmunization status Z28.3 Active 232978655 Problem Oth diseases and conditions compl preg/chldbrth O99.89 Active 333431521 Assessment Diabetes mellitus screening Z13.1 Nov, Active 941330191 Problem Family history of hyperlipidemia Z83.49 Active 174457503 Assessment Second trimester Z33.1 Nov, Active 44327211 Problem History of long-term use of multiple prescription drugs Z92.29 Active 989643898 ALLERGIES Unknown Allergies SOCIAL HISTORY No smoking Hx information available PLAN OF CARE VITAL SIGNS Height 66 in 2015-11-11 Weight 271.3 lbs 2015-11-11 Heart Rate 88 bpm 2015-11-11 Respiratory Rate 20 2015-11-11 BMI 43.789 kg/m2 2015-11-11 Blood pressure systolic 137 mmHg 2015-11-11 Blood pressure diastolic 84 mmHg 2015-11-11 MEDICATIONS Medication Instructions Dosage Frequency Start Date End Date Duration Status 28-0.8 MG Orally daily 1 24h July, Active Zoloft 100 MG Orally Once a day 1 tablet 24h 11 Jan, 2015 Active Albuterol Sulfate 90 mcg/actuation 2 puffs by Inhalation route every 6 hours as needed PRN cough or wheezing May, Active Flovent HFA 44 MCG/ACT Inhalation Twice a day 2 puffs 12h July, Active RESULTS Name Result Date Reference Range GLUCOSE CONSTANTIN 1 HOUR 2015-11-11 Gestational Diabetes Screen 122 65-139 CBC 2015-11-11 WBC 10.9 3.4-10.8 RBC 3.84 3.77-5.28 Hemoglobin 12.3 11.1-15.9 Hematocrit 37.8 34.0-46.6 MCV 98 79-97 MCH 32.0 26.6-33.0 MCHC 32.5 31.5-35.7 RDW 13.2 12.3-15.4 Platelets 324 150-379 Neutrophils 80 Lymphs 14 Monocytes 5 Eos 1 Basos 0 Neutrophils (Absolute) 8.7 1.4-7.0 Lymphs (Absolute) 1.6 0.7-3.1 Monocytes(Absolute) 0.5 0.1-0.9 Eos (Absolute) 0.1 0.0-0.4 Baso (Absolute) 0.0 0.0-0.2 Immature Granulocytes 0 Immature Grans (Abs) 0.0 0.0-0.1 UA OB DIP (IN HOUSE) 2015-11-11 Glucose negative Protein negative PROCEDURES Procedure Date Ordered Related Diagnosis Body Site URINE-NO MICRO Nov 11, 2015 [facility] Office Visit, Est Pt., Level 2 Nov 11, 2015 VENIPUNCT, ROUTINE* Nov 11, 2015 IMMUNIZATIONS No Known Immunizations
--- OUTSIDE RECORDS SUMMARY | 2018-06-01 07:25 | XMS REPORT ---
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
--- OUTSIDE RECORDS SUMMARY | 2018-06-01 07:25 | XMS REPORT ---
Author Author SAMIA CARLOS [facility] eClinicalWorks Address Unknown Phone Unavailable Care Team Providers Care Stone Polisher Machine Name Role Phone SAMIA CARLOS CP Unavailable Allergies, Adverse Reactions, Alerts Substance Reaction Event Type Viibryd rash Drug Allergy Problems Problem Type Condition Code Onset Dates Condition Status Problem Lumbago [...] Asthma, unspecified, unspecified status 493.90 Active Assessment Posttraumatic stress disorder F43.10 Active Problem examination or test, unconfirmed V72.40 Active Assessment Bipolar disorder with severe depression F31.4 Active Assessment Borderline personality disorder F60.3 Active Problem Nausea alone 787.02 Active Problem General counseling for prescription of oral contraceptives V25.01 Active Problem Abdominal pain, unspecified site 789.00 Active Problem Counseling on other sexually transmitted diseases V65.45 Active Problem Other and unspecified noninfectious gastroenteritis and colitis 558.9 Active Problem Abnormal weight gain 783.1 Active Medications Medication Code System Code Instructions Start Date End Date Status Dosage Diclofenac Sodium [facility] [address]-10 50 MG Orally Twice a day 1 tablet as needed Seroquel [facility] [address]-32 25 MG Orally three times a day Jan 15, 2015 1 tablet Zoloft [facility] [address]-38 100 MG Orally Once a day Jan 15, 2015 1 tablet Albuterol Sulfate [facility] [address]-99 90 mcg/actuation May 14, 2014 2 puffs by Inhalation route every 6 hours as needed PRN cough or wheezing Seroquel [facility] [address]-29 25 MG Orally three times a day Nov 13, 2014 1 tablet Cyproheptadine HCl [facility] [address]-48 4 MG Orally twi to three tabs daily at bedtime Jan 15, 2015 as directed Procedures Procedure Coding System Code Date Office Visit, Est Pt., Level 3 CPT-4 93943 Jan 15, 2015 Vital Signs Date/Time: Jan 15, 2015 Cardiac Monitoring Heart Rate 111 bpm Weight 267.7 lbs Height 66 in BMI 43.20 Index Blood Pressure Diastolic 80 mmHg Blood Pressure Systolic 140 mmHg Results No Known Results Summary Purpose eClinicalWorks Submission
--- OUTSIDE RECORDS SUMMARY | 2018-06-01 07:25 | XMS REPORT ---
Author Author MAGUE IGLESIAS eClinicalWorks Address Unknown Phone Unavailable Care Team Providers Care Spot Welder Line Name Role Phone MAGUE IGLESIAS Unavailable Allergies [...]
--- OUTSIDE RECORDS SUMMARY | 2018-06-01 07:25 | XMS REPORT ---
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 07202504 Problem Borderline personality disorder F60.3 Active 82482403 Problem BMI 50.0-59.9, adult Z68.43 Active 162431840 Problem Other chronic pain G89.29 Active 15819413 Problem Morbid (severe) obesity due to excess calories E66.01 Active 917591284 Problem Body mass index (BMI) of 45.0-49.9 in adult Z68.42 Active 556216694 Problem Lumbago with sciatica, right side M54.41 Active 009040529170812 Problem Lumbago with sciatica, left side M54.42 Active 333737863 Problem History of long-term use of multiple prescription drugs Z92.29 Active 170776207 Problem Family history of hyperlipidemia Z83.49 Active 776271259 Problem Tobacco abuse Z72.0 Active 24929257 Problem Bipolar disorder F31.9 Active 57647093 Problem Schizophrenia F20.9 Active 21647186 Problem Moderate depressed bipolar I disorder F31.32 Active 99477981 Problem Moderate episode of recurrent major depressive disorder F33.1 Active 378938699 Problem Moderate persistent asthma without complication J45.40 Active 008564012 Problem BUTCH (generalized anxiety disorder) F41.1 Active 49648510 ALLERGIES Substance Reaction Event Type Date Status Viibryd rash Drug Allergy Dec, Active ENCOUNTERS Encounter Location Date Diagnosis [facility] [address] [facility] [id number] [address] July, BMI 50.0-59.9, adult Z68.43 ; Rash R21 ; Morbid (severe) obesity due to excess calories E66.01 and Infection, fungal, left foot B35.3 [place] [id number] [place] [address] 37775- 6247 May, [place] [address], [place] [address] Mar, [place] [id number] [place] [address] 84900- 4677 Mar, [place] [id number] [place] [address] 60968- 6194 Mar, BUTCH (generalized anxiety disorder) F41.1 ; 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 ; Borderline personality disorder F60.3 ; Cannabis use disorder, mild, abuse F12.10 and BMI 45.0-49.9, adult Z68.42 [place] [id number] [place] [address] 16135- 3191 Feb, BMI 45.0-49.9, adult Z68.42 ; Lumbago with sciatica, left side M54.42 ; Lumbago with sciatica, right side M54.41 and Other chronic pain G89.29 [place] [address] [place] [address] 83730- 0167 Feb, BUTCH (generalized anxiety disorder) F41.1 ; 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 ; Borderline personality disorder F60.3 and Cannabis use disorder, mild, abuse F12.10 [place] [address] [place] [address] 52658- 2034 Jan, BUTCH (generalized anxiety disorder) F41.1 ; 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 ; Borderline personality disorder F60.3 and Cannabis use disorder, mild, abuse F12.10 [place] [address], [place] [address] Dec, Cold intolerance R68.89 ; Morbid (severe) obesity due to excess calories E66.01 ; Screening for lipid disorders Z13.220 and Screening for diabetes mellitus (DM) Z13.[address] [address]78- 6935 Dec, Body mass index (BMI) of 45.0-49.9 in adult Z68.42 ; Morbid (severe) obesity due to excess calories E66.01 ; Screening for diabetes mellitus (DM) Z13.1 ; Screening for lipid disorders Z13.220 and Cold intolerance R68.[address] [address]337- 4408 Nov, BUTCH (generalized anxiety disorder) F41.1 ; 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 ; Borderline personality disorder F60.3 and Cannabis use disorder, mild, abuse F12.[address] 01652- 0365 Oct, [address] [address]81- 7904 Oct, BUTCH (generalized anxiety disorder) F41.1 ; 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 ; Borderline personality disorder F60.3 and Cannabis use disorder, mild, abuse F12.[address] 57782- 3207 Sep, Encounter for test, result unknown Z32.[address] 89003- 0088 15 Aug, 2016 Low back pain M54.5 ; Dermatitis L30.9 ; Moderate episode of recurrent major depressive disorder F33.1 ; Morbid (severe) obesity due to excess calories E66.01 ; Body mass index (BMI) of 40.0-44.9 in adult Z68.41 and BMI 40.0-44.9, adult Z68.[address] 92404- 9371 Aug, [address] [place] [address] 47[address] Aug, [facility] [address] [address]65- 2255 Aug, Moderate depressed bipolar I disorder F31.32 ; Schizophrenia F20.9 and Bipolar disorder, current episode mixed, moderate F31.62 [facility] [id number] [place] [address] 24833- 4380 May, Nexplanon insertion Z30.017 [place] [address] 00538- 9044 Apr, History of long-term use of multiple prescription drugs Z92.29 ; Cannabis abuse F12.10 ; Moderate depressed bipolar I disorder F31.32 and Bipolar disorder, current episode mixed, moderate F31.62 [place] [id number] [place] [address] 06027- 8976 Mar, Cannabis abuse F12.10 and Bipolar disorder F31.9 [place] [address] 41977- 9505 Mar, [place] [address] 35574- 0629 Mar, exam Z39.2 [place] [address] 98543- 0757 Feb, Bipolar disorder, current episode mixed, moderate F31.62 [place] [id number] [place] [address] 41602- 1093 Feb, [place] [id number] [place] [address] 79488- 6369 Jan, [place] [address] 40704- 3440 Jan, [facility] [id number] [place] [address] 81151- 0924 Jan, care, subsequent in third trimester Z34.83 and 37 weeks gestation of Z3A.37 [place] [address], [place] [address] 17 Jan, 2016 Encounter for dental examination and cleaning without abnormal findings Z01.20 [place] [id number] [place] [address] 96711- 9200 10 Jan, 2016 [place] [id number] [place] [address] 54900- 9228 10 Jan, 2016 care, subsequent in third trimester Z34.83 and 36 weeks gestation of Z3A.36 [place] [id number] [place] [address] 21937- 2763 03 Jan, 2016 Third trimester at less than 36 weeks Z33.1 ; screening for streptococcus B Z36 and 35 weeks gestation of Z3A.35 [place] [id number] [place] [address] 14146- 7983 21 Dec, 2015 care, subsequent in third trimester Z34.83 and 34 weeks gestation of Z3A.34 [place] [id number] [place] [address] 20533- 6745 18 Dec, 2015 [place] [id number] [place] [address] 32148- 5655 Dec, Urine frequency R35.0 [place] [id number] [place] [address] 80080- 3718 Dec, Urine frequency R35.0 [place] [id number] [place] [address]- 1979 Dec, Third trimester at less than 36 weeks Z33.1 ; 31 weeks gestation of Z3A.31 and Encounter for immunization Z23 [place] [id number] [place] [address] 75237- 4506 Dec, [place] [id number] [place] [address] 59306- 2527 Nov, Third trimester at less than 36 weeks Z33.1 ; Encounter for immunization Z23 and 29 weeks gestation of Z3A.29 [place] [address] [place] [id number] [address] 8099 Nov, Second trimester Z33.1 and Diabetes mellitus screening Z13.1 [place] [address], [place] [address] 1317 Oct, Second trimester Z33.1 and 23 weeks gestation of Z3A.23 [place] [address], [place] [address]- 6780 Oct, [place] [address], [place] [address] 4432 Sep, [place] [address], [place] [address]- 1052 Sep, Second trimester Z33.1 ; 18 weeks gestation of Z3A.18 ; History of long-term use of multiple prescription drugs Z92.29 ; complicated by previous recurrent miscarriages, 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 and , high-risk, second trimester O09.92 [place] [address], [place] [address]- 6392 Aug, [place] [address], [place] [address] 1240 Aug, , high-risk, second trimester O09.92 and 14 weeks gestation of Z3A.14 [place] [address], [place] [address]80 July, complicated by previous recurrent miscarriages, 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 [place] [address] [facility] [id number] [address]39 July, , high-risk, second trimester O09.92 ; Moderate persistent asthma without complication J45.40 and 16 weeks gestation [address] Z3A.16 [facility] [address] [id number] JULIET PETERS [address] July [place] [address] [id number] [address] July, [facility] [id number] [place] [address] 20622- 6177 July, Moderate depressed bipolar I disorder F31.32 ; Cannabis abuse F12.10 and First trimester Z33.1 [place] [id number] [place] [address] 00527- 0367 Jun, [place] [id number] [place] [address] 95449- 2132 Jun, [place] [id number] [place] [address] 70501- 3574 Jun, confirmed by positive urine test Z32.01 [place] [id number] [place] [address] 90473- 2112 Jun, Moderate depressed bipolar I disorder F31.32 and Cannabis abuse F12.10 [place] [id number] [place] [address] 06915- 3044 May, [place] [id number] [place] [address] 23754- 3312 May, [place] [id number] [place] [address] 39603- 9770 May, Moderate depressed bipolar I disorder F31.32 and Cannabis abuse F12.10 [place] [id number] [place] [address] 76891- 7491 May, Routine screening for STI (sexually transmitted infection) Z11.3 ; Moderate depressed bipolar I disorder F31.32 ; Unprotected sexual intercourse Z72.51 ; History of irregular menstrual bleeding Z87.42 ; Screening for malignant neoplasm of cervix Z12.4 and Vaginal discharge N89.8 [place] [address] [place] [address] 63106- 0605 May, Moderate depressed bipolar I disorder F31.32 and Cannabis abuse F12.10 [place] [id number] [place] [address] 37764- 0105 Apr, History of long-term use of multiple prescription drugs Z92.29 [place] [id number] [place] [address] 13187- 3490 Apr, Tobacco abuse Z72.0 ; High risk bisexual behavior Z72.53 ; History of long-term use of multiple prescription drugs Z92.29 and Family history of hyperlipidemia Z83.[address] 89399- 4119 Apr, [address] 76031- 4943 Jan, Posttraumatic stress disorder F43.10 ; Borderline personality disorder F60.3 and Bipolar disorder with severe depression F31.4 [place] [id number] [place] [address] 72179- 2397 14 Nov, 2014 Bipolar I disorder, most recent episode (or current) mixed, moderate 296.62 ; Posttraumatic stress disorder 309.81 and Nondependent cannabis abuse, unspecified 305.20 [place] [id number] [place] [address] 76041- 0421 Nov, Posttraumatic stress disorder 309.81 ; Attention deficit 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.00 and Bipolar I disorder, most recent episode (or current) mixed, moderate 296.62 [place] [id number] [place] [address] 81942- 0901 Oct, [place] [id number] [place] [address] 40822- 3146 Sep, Family history of diabetes mellitus V18.0 ; Fatigue 780.79 ; Tobacco abuse 305.1 and Overweight 278.[address] 99431- 1181 Aug, [place] [id number] [place] [address] 60787- 0313 Aug, [address] 42046- 6035 Aug, [facility] [address], [place] [address]- 1239 Aug, Bipolar I disorder, most recent episode (or current) mixed, moderate 296.62 and Nondependent cannabis abuse, unspecified 305.20 [facility] [address], [place] [address]- 1343 July, Bipolar I disorder, most recent episode (or current) mixed, moderate 296.62 ; Posttraumatic stress disorder 309.81 ; Attention deficit 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.00 and Nondependent cannabis abuse, unspecified 305.20 [facility] [address] [place] [address] 08767- 1370 July, [facility] [id number] [place] [address] 19231- 6994 Jun, [facility] [id number] [place] [address] 41835- 3146 Jun, [facility] [address], [place] [address]- 5012 May, [facility] [address] [place] [address] 09810- 5810 May, [facility] [address], [place] [address]- 4585 May, [facility] [address], [place] [address]- 9469 May, [facility] [address], [place] [address]- 4913 May, [facility] [address] 2093 May, [facility] [address] 3469 Apr, [facility] [address] [address] Apr, [facility] [address] [id number] [place] [address]- 6501 Mar, [facility] [place] [facility] [address] [id number] [place] [address]- 3261 Mar, [facility] [place] [facility] [address] [id number] [place] [address]- 9293 Mar, [facility] [place] [facility] [address] [id number] [place] [address]- 5659 Mar, [facility] [place] [facility] [address] [id number] [place] [address]- 2861 Mar, [facility] [place] [facility] [address] [id number] [place] [address]- 9285 Mar, [facility] [place] [facility] [address] [id number] [place] [address]- 6280 Feb, [facility] [place] [facility] [address] [id number] [place] [address]- 5143 Feb, [facility] [place] [facility] [address] [id number] [place] [address]- 5495 Feb, [facility] [place] [facility] [address] [id number] [place] [address]- 6936 Feb, [facility] [place] [facility] [address] [id number] [place] [address]- 2118 Feb, [facility] [place] [facility] [address] [id number] [place] [address]- 7018 Feb, [facility] [place] [facility] [address] [id number] [place] [address]- 2293 Feb, [facility] [place] [facility] [address] [id number] [place] [address]- 0258 Jan, [facility] [place] [facility] [address] [id number] [place] [address]- 0856 Jan, [facility] [place] [facility] [address] [id number] [address]- 9173 Jan, [facility] [place] [facility] [address] [id number] [place] [address]- 1080 Jan, [facility] [place] [facility] [address] [id number] [place] [address]- 8040 Jan, [facility] [place] [facility] [address] [id number] [place] [address]- 0852 Jan, [facility] [place] [facility] [address] [id number] [place] [address]- 8450 Dec, [facility] [place] [facility] [address] [id number] [place] [address]- 1574 Dec, [facility] [place] [facility] [address] [id number] [place] [address]- 2293 Dec, [facility] [place] [facility] [address] [id number] [place] [address]- 7877 Dec, [facility] [place] [facility] [address] [id number] [place] [address]- 1637 Dec, [facility] [place] [facility] [address] [id number] [place] [address]- 1296 Dec, [facility] [place] [facility] [address] [id number] [place] [address]- 3218 Dec, [facility] [place] [facility] [address] [id number], [place] [address]- 9882 Dec, [facility] [place] [facility] [address] [id number], [place] [address]- 7004 Nov, [facility] [place] [facility] [address] [id number] [place] [address]- 1951 Nov, [facility] [place] [facility] [address] [id number] [place] [address]- 5952 Oct, [facility] [place] [facility] [address] [id number] [place] [address]- 4925 Oct, [facility] [place] [facility] [address] [id number] [place] [address] Oct, [facility] [place] [facility] [address] [id number] [place] [address]- 1516 Aug, [facility] [place] [facility] [address] [id number] [place] [address]- 5276 Aug, [facility] [place] [facility] [address] [id number] [place] [address]- 8432 Aug, [facility] [place] [facility] [address] [id number] [place] [address]- 0652 Aug, [facility] [place] [facility] [address] [id number] [place] [address]- 5334 July, [facility] [place] [facility] [address] [id number] [place] [address]- 8719 July, [facility] [place] [facility] [address] [id number] [place] [address]- 6497 July, [facility] [place] [facility] [address] [id number] [place] [address]- 4629 July, [facility] [place] [facility] [address] [id number] [place] [address]- 1447 July, [facility] [place] [facility] [address] [id number] [place] [address]- 5269 July, [facility] [place] [facility] [address] [id number] [place] [address]- 5529 Jun, [facility] [place] [facility] [address] [id number] [place] [address]- 4606 Jun, [facility] [place] [facility] [address] [id number] [place] [address]- 7583 Jun, [facility] [place] [facility] [address] [id number] [place] [address]- 6320 Jun, [facility] [place] [facility] [address] [id number] [place] [address]- 1072 14 Apr, 2013 [facility] [address] [id number] [place] [address]- 0717 14 Apr, 2013 [facility] [place] [facility] [address] [id number] [place] [address]- 6476 Mar, [facility] [place] [facility] [address] [id number] [place] [address]- 1711 Mar, [facility] [place] [facility] [address] [id number] [place] [address]- 5553 Mar, [facility] [place] [facility] [address] [id number] [place] [address]- 7510 Mar, [facility] [place] [facility] [address] [id number] [place] [address]- 5321 16 Feb, 2013 [facility] [place] [facility] [address] [id number] [place] [address]- 5306 16 Feb, 2013 [facility] [place] [facility] [address] [id number] [place] [address]- 3699 13 Feb, 2013 [facility] [place] [facility] [address] [id number] [place] [address]- 5288 13 Feb, 2013 [facility] [place] [facility] [address] [id number] [place] [address]- 1539 13 Feb, 2013 [facility] [place] [facility] [address] [id number] [address]- 7222 13 Feb, 2013 [facility] [place] [facility] [address] [id number], [place] [address]- 1994 11 Feb, 2013 [facility] [place] [facility] [address] [id number] [place] 3214 11 Feb, 2013 [facility] [place] [facility] [address] [id number] [place] [address]- 5856 04 Feb, 2013 [facility] [place] [facility] [address] [id number] [place] [address]- 4944 03 Feb, 2013 [facility] [place] [facility] [address] [id number] [place] [address]- 8569 Feb, [facility] [place] [facility] [address] [id number] [place] [address]- 2879 Jan, [facility] [place] [facility] [address] [id number] [place] [address]- 3894 Jan, [facility] [place] [facility] [address] [id number] [place] 7415 Jan, [facility] [place] [facility] [address] [id number] [place] [address]- 1587 Jan, [facility] [place] [facility] [address] [id number] [place] [address]- 4399 Dec, [facility] [place] [facility] [address] [id number] [place] [address]- 8131 Dec, [facility] [place] [facility] [address] [id number] [place] [address]- 9294 Dec, [facility] [place] [facility] [address] [id number] [place] [address]- 8070 Dec, [facility] [place] [facility] [address] [id number] [place] [address]- 8354 Dec, [facility] [place] [facility] [address] [id number] [place] [address]- 1100 Dec, [facility] [place] [facility] [address] [id number] [place] [address]- 2086 Oct, [facility] [place] [facility] [address] [id number] [place] [address]- 0344 Oct, [facility] [place] [facility] [address] [id number] [place] [address]- 7803 Oct, [facility] [place] [facility] [address] [id number] [place] [address]- 0318 Oct, [facility] [place] [facility] [address] [id number] [place] 7283 Sep, [facility] [place] [facility] [address] [id number] [place] [address]- 2104 Sep, [facility] [address] [id number] [place] [address]- 5949 Aug, [facility] [address] [id number] [place] [address]- 2546 July, [facility] [address] [id number] [place] [address]- 9160 Jun, [facility] [address] [id number] [place] [address]- 1701 Jun, [facility] [address] [id number] [place] [address]- 7926 Jun, [facility] [address] [id number] [place] [address]- 8286 May, [facility] [address] [id number] [place] [address] May, [facility] [address] [id number] [place] [address] May, [facility] [address] [id number] [place] [address] Apr, [facility] [address] [id number] [place] [address] Mar, [facility] [address] [id number] [place] [address] Mar, [facility] [address] [id number] [place] [address] Mar, [facility] [address] [id number] [place] [address] Feb, [facility] [address] [id number] [place] [address] Feb, [facility] [address] [id number] [place] [address] Feb, [facility] [place] [facility] [address] [id number] [place] [address] Feb, [facility] [place] [facility] [address] [id number] [place] [address] Jan, [facility] [place] [facility] [address] [id number] [place] [address] Jan, [facility] [place] [facility] [address] [id number] [place] [address] Jan, [facility] [place] [facility] [address] [id number] [place] [address] Dec, [facility] [place] [facility] [address] [id number] [place] [address] Dec, [facility] [place] [facility] [address] [id number] [place] [address] Oct, [facility] [place] [facility] [address] [id number] [place] [address] Sep, [facility] [place] [facility] [address] [id number] [place] [address] Sep, [facility] [place] [facility] [address] [id number] [place] [address] July, [facility] [place] [facility] [address] [id number] [place] [address] July, [facility] [place] [facility] [address] [id number] [place] [address] Jun, [facility] [place] [facility] [address] [id number] [place] [address] Jun, [facility] [place] [facility] [address] [id number] [place] [address] Jun, [facility] [place] [facility] [address] [id number] [place] [address] Jun, [facility] [place] [facility] [id number], [place] [address] Apr, 2011 [facility] [address] [id number] [address] Apr, [facility] [id number], [place] [address] Mar, [facility] [id number] [place] [address] Mar, [facility] [id number], [place] [address] Mar, [facility] [id number] [address] Feb, [facility] [id number] [place] [address] Feb, [facility] [address], [place] [address] Feb, [facility] [id number], [place] [address] Feb, [facility] [id number] [address] Feb, [facility] [id number], [place] [address] Jan, [facility] [id number], [place] [address] Mar, [facility] [id number], [place] [address] Mar, [facility] [id number], [place] [address] Jan, IMMUNIZATIONS No Known Immunizations SOCIAL HISTORY Never Assessed REASON FOR VISIT thyroid check-tcuppesaraRHenri, --Pt reports almost 50lb weight gain in less than a year. Is concerned something is wrong possibly with her thyroid, --Increased fatigue and feels cold all the time PLAN OF CARE Activity Details Follow Up 3 Months with Leonila for weight management Reason: VITAL SIGNS Height 66 in 2016-12-30 Weight 304.0 lbs 2016-12-30 Temperature 98.6 degrees Fahrenheit 2016-12-30 Heart Rate 84 bpm 2016-12-30 Respiratory Rate 20 2016-12-30 BMI 49.06 kg/m2 2016-12-30 Blood pressure systolic 118 mmHg 2016-12-30 Blood pressure diastolic 80 mmHg 2016-12-30 MEDICATIONS Medication Instructions Dosage Frequency Start Date End Date Duration Status Flovent HFA 44 MCG/ACT Inhalation Twice a day 2 puffs 12h July, Active BusPIRone HCl 15 MG Orally Three times a day 1 tablet 8h Active Nexplanon 68 MG Subcutaneous Placed 05/12/2016 as directed May, 3 years Active Albuterol Sulfate 90 mcg/actuation 2 puffs by Inhalation route every 6 hours as needed PRN cough or wheezing May, Active HydrOXYzine HCl 50 mg Orally at bedtime as needed for sleep 1/2 to 1 tablet Nov, 30 days Active Lexapro 20 MG Orally Once a day 1 tablet 24h Active RESULTS No Results PROCEDURES No Known [...] treatment for suicidal tendencies, cutter, burner, biter ([place] x2, [place] x1, [place] x3) Hospitalization History Acute Migraines/Vomiting 2014 Hospitalization History Childbirth 01/31/2016
--- OUTSIDE RECORDS SUMMARY | 2018-06-01 07:25 | XMS REPORT ---
Author Author MAGUE IGLESIAS eClinical[employer] Address Unknown Phone Unavailable Care Team Providers Care Boiler Technician Name Role Phone MAGUE IGLESIAS Unavailable Allergies [...] Date End Date Status Dosage Albuterol Sulfate [facility] [address]-13 90 mcg/actuation May 14, 2014 2 puffs by Inhalation route every 6 hours as needed PRN cough or wheezing Flovent HFA [facility] [address]-42 44 MCG/ACT Inhalation Twice a day July 15, 2015 2 puffs Results No Known Results Summary Purpose eClinicalWorks Submission
--- OUTSIDE RECORDS SUMMARY | 2018-06-01 07:25 | XMS REPORT ---
Author Author GAEL MARTÍNEZ [facility] eClinicalWorks Address Unknown Phone Unavailable Care Team Providers Care Lawn Mower Name Role Phone GAEL MARTÍNEZ CP Unavailable Allergies No Known Allergies Problems Problem Type Condition Code Onset Dates Condition Status Problem Cannabis abuse F12.10 Active Problem Tobacco abuse Z72.0 Active Problem Moderate depressed bipolar I disorder F31.32 Active Problem Family history of hyperlipidemia Z83.49 Active Assessment confirmed by positive urine test Z32.01 Active Problem High risk bisexual behavior Z72.53 Active Problem History of long-term use of multiple prescription drugs Z92.29 Active Medications No Known Medications Procedures Procedure Coding System Code Date URINE TEST CPT-4 86419 June 27, 2015 Results No Known Results Summary Purpose eClinicalWorks Submission
--- OUTSIDE RECORDS SUMMARY | 2018-06-01 07:26 | XMS REPORT ---
Author Author CHAKA NGUYEN [facility] eClinicalWorks Address Unknown Phone Unavailable Care Team Providers Care Channel Marketing Specialist Name Role Phone CHAKA NGUYEN CP Unavailable Allergies No Known Allergies Problems [...]
--- OUTSIDE RECORDS SUMMARY | 2018-06-01 07:26 | XMS REPORT ---
Author Author SAMIA CARLOS [facility] eClinicalWorks Address Unknown Phone Unavailable Care Team Providers Care It Software Engineer Name Role Phone SAMIA CARLOS CP Unavailable Allergies, Adverse Reactions, Alerts Substance Reaction Event Type Viibryd rash Drug Allergy Problems Problem Type Condition ICD-9 Code Onset [...] status 493.90 Active Assessment Posttraumatic stress disorder 309.81 Active Problem examination or test, unconfirmed V72.40 Active Assessment Bipolar I disorder, most recent episode (or current) mixed, moderate 296.62 Active Assessment Attention deficit 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.00 Active Problem Nausea alone 787.02 Active Problem General counseling for prescription of oral contraceptives V25.01 Active Problem Abdominal pain, unspecified site 789.00 Active Problem Counseling on other sexually transmitted diseases V65.45 Active Problem Other and unspecified noninfectious gastroenteritis and colitis 558.9 Active Problem Abnormal weight gain 783.1 Active Medications Medication Code System Code Instructions Start Date End Date Status Dosage Seroquel [facility] [address]-53 25 MG Orally three times a day Nov 13, 2014 1 tablet Cyproheptadine HCl [facility] [address]-11 4 MG Orally one or two tablets at bedtime Nov 13, 2014 1 tablet Diclofenac Sodium [facility] [address]-57 50 MG Orally Twice a day 1 tablet as needed Albuterol Sulfate [facility] [address]-76 90 mcg/actuation May 14, 2014 2 puffs by Inhalation route every 6 hours as needed PRN cough or wheezing Baclofen [facility] [address]-99 10 MG Orally Three times a day PRN muscle spasm 1 tablet Neurontin [facility] [address]-92 100 MG Orally Three times a day not defined Zoloft [facility] [address]-44 100 MG Orally Once a day Nov 13, 2014 1 tablet Procedures Procedure Coding System Code Date Office Visit, Est Pt., Level 4 CPT-4 39228 Nov 13, 2014 Vital Signs Date/Time: Nov 13, 2014 Cardiac Monitoring Heart Rate 86 bpm Weight 260 lbs Height 66 in BMI 41.96 Index Blood Pressure Diastolic 82 mmHg Blood Pressure Systolic 124 mmHg Results No Known Results Summary Purpose eClinicalWorks Submission
--- OUTSIDE RECORDS SUMMARY | 2018-06-01 07:26 | XMS REPORT ---
Author Author CHAKA NGUYEN [facility] Address [address] [place] [address] Care Team Providers Care Sonography Technician Name Role Phone CHAKA NGUYEN Unavailable PROBLEMS Type Condition ICD9-CM Code [id number] Code Onset Dates Condition Status SNOMED Code Problem Bipolar disorder, current episode mixed, moderate F31.62 Active 596734660 Problem Schizophrenia F20.9 Active 73134994 Problem Bipolar disorder F31.9 Active 36749775 Problem Morbid (severe) obesity due to excess calories E66.01 Active 536648710 Problem Body mass index (BMI) of 45.0-49.9 in adult Z68.42 Active 285841071 Problem Borderline personality disorder F60.3 Active 20505044 Problem BUTCH (generalized anxiety disorder) F41.1 Active 91121311 Problem Cannabis use disorder, mild, abuse F12.10 Active 25677678 Problem 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 63018713 Problem History of long-term use of multiple prescription drugs Z92.29 Active 761253595 Problem Family history of hyperlipidemia Z83.49 Active 499938386 Problem Tobacco abuse Z72.0 Active 19277985 Problem Moderate depressed bipolar I disorder F31.32 Active 08187958 Problem High risk bisexual behavior Z72.53 Active 161314276 Problem Moderate persistent asthma without complication J45.40 Active 731810806 ALLERGIES No Information SOCIAL HISTORY Never Assessed PLAN OF CARE VITAL SIGNS MEDICATIONS Medication Instructions Dosage Frequency Start Date End Date Duration Status Flovent HFA 44 MCG/ACT Inhalation Twice a day 2 puffs 12h July, Active Albuterol Sulfate 90 mcg/actuation 2 puffs by Inhalation route every 6 hours as needed PRN cough or wheezing May, Active RESULTS No Results PROCEDURES No Known procedures IMMUNIZATIONS No Known Immunizations MEDICAL (GENERAL) HISTORY Type Description Date Medical [...] hospitalizations for psychiatric treatment for suicidal tendencies, amol, juliet, biter ([place] x2, [place] x1, [place] x3) Hospitalization History Acute Migraines/Vomiting 2014 Hospitalization History Childbirth 01/31/2016
--- OUTSIDE RECORDS SUMMARY | 2018-06-01 07:26 | XMS REPORT ---
Author Author MAGUE IGLESIAS eClinicalWorks Address Unknown Phone Unavailable Care Team Providers Care Steward/Stewardess Chief Cargo Vessel Name Role Phone MAGUE IGLESIAS CP Unavailable [...]
--- OUTSIDE RECORDS SUMMARY | 2018-06-01 07:27 | XMS REPORT ---
Author Author MAGUE IGLESIAS eClinicalWorks Address Unknown Phone Unavailable Care Team Providers Care Older Adult Social Work Specialist Name Role Phone MAGUE IGLESIAS Unavailable Allergies [...] affecting in second trimester, antepartum O13.2 Active Assessment 35 weeks gestation of Z3A.35 Active Problem Underimmunization status Z28.3 Active Problem Oth diseases and conditions compl preg/chldbrth O99.89 Active Assessment screening for streptococcus B Z36 Active Problem Family history of hyperlipidemia Z83.49 Active Assessment Third trimester at less than 36 weeks Z33.1 Active Problem History of long-term use of multiple prescription drugs Z92.29 Active Medications Medication Code System Code Instructions Start Date End Date Status Dosage Albuterol Sulfate [facility] [address]-93 90 mcg/actuation May 14, 2014 2 puffs by Inhalation route every 6 hours as needed PRN cough or wheezing Flovent HFA [facility] [address]-96 44 MCG/ACT Inhalation Twice a day July 15, 2015 2 puffs [facility] [address] 28-0.8 MG Orally daily July 15, 2015 1 Procedures Procedure Coding System Code Date Office Visit, Est Pt., Level 2 CPT-4 87644 Jan 08, 2016 [facility] CPT-4 NOBLL Jan 08, 2016 URINE-NO MICRO CPT-4 81772 Jan 08, 2016 Vital Signs Date/Time: Jan 08, 2016 Cardiac Monitoring Heart Rate 88 bpm Weight 269.9 lbs Height 66 in BMI 43.563 Index Blood Pressure Diastolic 83 mmHg Blood Pressure Systolic 124 mmHg Results Name Result Date Reference Range Unit Abnormality Flag UA OB DIP (IN HOUSE) ----Glucose Negative 20160108 ----Protein Negative 20160108 CULTURE, GROUP B STREP (VAGINAL) ----Strep Gp B Culture Negative 20160108 Negative Summary Purpose eClinicalWorks Submission
--- OUTSIDE RECORDS SUMMARY | 2018-06-01 07:27 | XMS REPORT ---
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 88889153 Problem Borderline personality disorder F60.3 Active 35797436 Problem BMI 50.0-59.9, adult Z68.43 Active 683227817 Problem Other chronic pain G89.29 Active 99108237 Problem Morbid (severe) obesity due to excess calories E66.01 Active 842440097 Problem Body mass index (BMI) of 45.0-49.9 in adult Z68.42 Active 282786160 Problem Lumbago with sciatica, right side M54.41 Active 163871882455584 Problem Lumbago with sciatica, left side M54.42 Active 022454660 Problem History of long-term use of multiple prescription drugs Z92.29 Active 986112627 Problem Family history of hyperlipidemia Z83.49 Active 399141959 Problem Tobacco abuse Z72.0 Active 02371438 Problem Bipolar disorder F31.9 Active 83038511 Problem Schizophrenia F20.9 Active 28872334 Problem Moderate depressed bipolar I disorder F31.32 Active 02846990 Problem Moderate episode of recurrent major depressive disorder F33.1 Active 490850825 Problem Moderate persistent asthma without complication J45.40 Active 687313409 Problem BUTCH (generalized anxiety disorder) F41.1 Active 83587035 ALLERGIES No Information ENCOUNTERS Encounter Location Date Diagnosis [facility] [address] [facility] [address] [id number] [place] [address] July, BMI 50.0-59.9, adult Z68.43 ; Rash R21 ; Morbid (severe) obesity due to excess calories E66.01 and Infection, fungal, left foot B35.3 [place] [id number] [place] [address] 28671- 1371 May, [place] [address] [address] Mar, [place] [address] [place] [id number] [place] [address] 01949- 5705 Mar, [place] [address] [place] [id number] [place] [address] 38201- 6601 Mar, BUTCH (generalized anxiety disorder) F41.1 ; 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 ; Borderline personality disorder F60.3 ; Cannabis use disorder, mild, abuse F12.10 and BMI 45.0-49.9, adult Z68.42 [place] [id number] [place] [address] 87486- 9028 Feb, BMI 45.0-49.9, adult Z68.42 ; Lumbago with sciatica, left side M54.42 ; Lumbago with sciatica, right side M54.41 and Other chronic pain G89.29 [place] [address] [place] [address] 16422- 8454 Feb, BUTCH (generalized anxiety disorder) F41.1 ; 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 ; Borderline personality disorder F60.3 and Cannabis use disorder, mild, abuse F12.10 [place] [address] [place] [address] 64776- 6422 Jan, BUTCH (generalized anxiety disorder) F41.1 ; 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 ; Borderline personality disorder F60.3 and Cannabis use disorder, mild, abuse F12.10 [place] [address] [address] Dec, Cold intolerance R68.89 ; Morbid (severe) obesity due to excess calories E66.01 ; Screening for lipid disorders Z13.220 and Screening for diabetes mellitus (DM) Z13.1 [place] [id number] [place] [address] 84678- 1449 26 Dec, 2017 Body mass index (BMI) of 45.0-49.9 in adult Z68.42 ; Morbid (severe) obesity due to excess calories E66.01 ; Screening for diabetes mellitus (DM) Z13.1 ; Screening for lipid disorders Z13.220 and Cold intolerance R68.[address] [address]- [address] Nov, BUTCH (generalized anxiety disorder) F41.1 ; 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 ; Borderline personality disorder F60.3 and Cannabis use disorder, mild, abuse F12.[address] 88465- 8408 Oct, [address] 69[address]- 7869 Oct, BUTCH (generalized anxiety disorder) F41.1 ; 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 ; Borderline personality disorder F60.3 and Cannabis use disorder, mild, abuse F12.10 [place] [id number] [place] [address] 02625- 7398 Sep, Encounter for test, result unknown Z32.[address] 62809- 7034 Aug, Low back pain M54.5 ; Dermatitis L30.9 ; Moderate episode of recurrent major depressive disorder F33.1 ; Morbid (severe) obesity due to excess calories E66.01 ; Body mass index (BMI) of 40.0-44.9 in adult Z68.41 and BMI 40.0-44.9, adult Z68.41 [place] [id number] [place] [address] 82167- 1138 13 Aug, [address] 87891- 4605 Aug, [facility] [address] [place] [id number] [place] [address] 97579- 3442 Aug, Moderate depressed bipolar I disorder F31.32 ; Schizophrenia F20.9 and Bipolar disorder, current episode mixed, moderate F31.62 [facility] [address] [place] [id number] [place] [address] 58766- 4133 May, Nexplanon insertion Z30.017 [place] [address] [address]25- 5322 Apr, History of long-term use of multiple prescription drugs Z92.29 ; Cannabis abuse F12.10 ; Moderate depressed bipolar I disorder F31.32 and Bipolar disorder, current episode mixed, moderate F31.62 [place] [address] [place] [id number] [place] [address] 87865- 0885 Mar, Cannabis abuse F12.10 and Bipolar disorder F31.9 [place] [address] 25472- 1392 Mar, [place] [address] 18204- 7334 Mar, exam Z39.2 [place] [address] 19843- 0191 Feb, Bipolar disorder, current episode mixed, moderate F31.62 [place] [address] [place] [id number] [place] [address] 36290- 7031 Feb, [place] [address] [place] [id number] [place] [address] 43115- 7141 Jan, [place] [address] 84496- 9817 Jan, [place] [address] [place] [id number] [place] [address] 35904- 6234 Jan, care, subsequent in third trimester Z34.83 and 37 weeks gestation of Z3A.37 [place] [address] [place] [address]- 9911 17 Jan, 2016 Encounter for dental examination and cleaning without abnormal findings Z01.20 [place] [address] [place] [id number] [place] [address] 04722- 1137 10 Jan, 2016 [place] [address] [place] [id number] [place] [address] 14711- 8420 10 Jan, 2016 care, subsequent in third trimester Z34.83 and 36 weeks gestation of Z3A.36 [place] [address] [place] [id number] [place] [address] 72001- 2405 03 Jan, 2016 Third trimester at less than 36 weeks Z33.1 ; screening for streptococcus B Z36 and 35 weeks gestation of Z3A.35 [place] [address] [place] [id number] [place] [address] 28905- 6116 21 Dec, 2015 care, subsequent in third trimester Z34.83 and 34 weeks gestation of Z3A.34 [place] [address] [place] [id number] [place] [address] 21836- 8087 18 Dec, 2015 [place] [address] [place] [id number] [place] [address] 07850- 0706 Dec, Urine frequency R35.0 [place] [address] [place] [id number] [place] [address] 02938- 2954 18 Dec, 2015 Urine frequency R35.0 [place] [address] [place] [id number] [place] [address] 96253- 7216 06 Dec, 2015 Third trimester at less than 36 weeks Z33.1 ; 31 weeks gestation of Z3A.31 and Encounter for immunization Z23 [place] [address] [place] [id number] [place] [address] 68258- 3266 Dec, [place] [address] [place] [id number] [place] [address] 84436- 0929 Nov, Third trimester at less than 36 weeks Z33.1 ; Encounter for immunization Z23 and 29 weeks gestation of Z3A.29 [place] [address] [place] [id number] [address]- 6391 Nov, Second trimester Z33.1 and Diabetes mellitus screening Z13.1 [place] [address], [place] [address] 5417 Oct, Second trimester Z33.1 and 23 weeks gestation of Z3A.23 [place] [address], [place] [address]- 0522 Oct, [place] [address] [address]- 1006 Sep, [place] [address] [place] [address] 11056- 0040 Sep, Second trimester Z33.1 ; 18 weeks gestation of Z3A.18 ; History of long-term use of multiple prescription drugs Z92.29 ; complicated by previous recurrent miscarriages, 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 and , high-risk, second trimester O09.92 [place] [address] [place] [id number] [address]- [address] Aug, [address] [address]- 4[address] Aug, , high-risk, second trimester O09.92 and 14 weeks gestation of Z3A.14 [place] [id number] [address]- 0144 July, complicated by previous recurrent miscarriages, 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 [place] [address] [place] [id number] [address]- 9059 July, , high-risk, second trimester O09.92 ; Moderate persistent asthma without complication J45.40 and 16 weeks gestation of Z3A.16 [facility] [address] [id number] [place] [address] [id number] [address] July, [place] [address] [address]- 3299 July, Moderate depressed bipolar I disorder F31.32 ; Cannabis abuse F12.10 and First trimester Z33.1 [facility] [address] [address]- 2291 Jun, [place] [address] [place] [id number] [place] [address] 46452- 7087 Jun, [place] [address] [place] [id number] [place] [address] 77418- 0333 Jun, confirmed by positive urine test Z32.01 [place] [address] [place] [id number] [place] [address] 09821- 2845 Jun, Moderate depressed bipolar I disorder F31.32 and Cannabis abuse F12.10 [place] [address] [place] [id number] [place] [address] 52145- 2412 May, [place] [address] [place] [id number] [place] [address] 17288- 3417 May, [place] [address] [place] [id number] [place] [address] 52777- 2258 May, Moderate depressed bipolar I disorder F31.32 and Cannabis abuse F12.10 [place] [address] [address]- 8050 May, Routine screening for STI (sexually transmitted infection) Z11.3 ; Moderate depressed bipolar I disorder F31.32 ; Unprotected sexual intercourse Z72.51 ; History of irregular menstrual bleeding Z87.42 ; Screening for malignant neoplasm of cervix Z12.4 and Vaginal discharge N89.8 [place] [address] [place] [id number] [place] [address] 28487- 1217 May, Moderate depressed bipolar I disorder F31.32 and Cannabis abuse F12.10 [place] [address] [address]- 6389 Apr, History of long-term use of multiple prescription drugs Z92.29 [address] [place] [address] 81064- 5964 24 Apr, 2015 Tobacco abuse Z72.0 ; High risk bisexual behavior Z72.53 ; History of long-term use of multiple prescription drugs Z92.29 and Family history of hyperlipidemia Z83.49 [address] [place] [address] 80411- 0194 Apr, [address] 43230- 7931 Jan, Posttraumatic stress disorder F43.10 ; Borderline personality disorder F60.3 and Bipolar disorder with severe depression F31.4 [place] [id number] [place] [address] 72145- 0901 14 Nov, 2014 Bipolar I disorder, most recent episode (or current) mixed, moderate 296.62 ; Posttraumatic stress disorder 309.81 and Nondependent cannabis abuse, unspecified 305.20 [place] [id number] [place] [address] 43645- 3268 09 Nov, 2014 Posttraumatic stress disorder 309.81 ; Attention deficit 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.00 and Bipolar I disorder, most recent episode (or current) mixed, moderate 296.62 [address] [place] [address] 09886- 0974 Oct, [place] [id number] [place] [address] 95707- 5432 Sep, Family history of diabetes mellitus V18.0 ; Fatigue 780.79 ; Tobacco abuse 305.1 and Overweight 278.02 [place] [id number] [place] [address] 42428- 6648 Aug, [place] [id number] [place] [address] 06380- 6957 Aug, [address] [place] [address] 44455- 2529 Aug, [place] [address] [address]- 3678 Aug, Bipolar I disorder, most recent episode (or current) mixed, moderate 296.62 and Nondependent cannabis abuse, unspecified 305.20 [facility] [address] [address] [address]48 July, Bipolar I disorder, most recent episode (or current) mixed, moderate 296.62 ; Posttraumatic stress disorder 309.81 ; Attention deficit 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.00 and Nondependent cannabis abuse, unspecified 305.20 [facility] [address] [address]- 5033 July, [facility] [address] [place] [id number] [place] [address] 71760- 2116 Jun, [facility] [address] [place] [address] [address]- 0102 Jun, [facility] [address] [place] [address] [address]- 0065 May, [facility] [address], [place] [address]- 1621 May, [facility] [address], [place] [address]- 9706 May, [facility] [address], [place] [address]- 9743 May, [facility] [address], [place] [address]- 2828 May, [facility] [address], [place] [address]- 8259 May, [facility] [address] 3909 Apr, [facility] [address] 8233 Apr, [facility] [address] [place] [id number] [place] [address]- 3156 Mar, [facility] [place] [facility] [address] [id number] [place] [address]- 5726 Mar, [facility] [place] [facility] [address] [id number] [place] [address]- 4600 Mar, [facility] [place] [facility] [address] [id number] [place] [address]- 9557 Mar, [facility] [place] [facility] [address] [id number] [place] [address]- 1718 Mar, [facility] [place] [facility] [address] [id number] [place] [address]- 3341 Mar, [facility] [place] [facility] [address] [id number] [place] [address]- 3413 Feb, [facility] [place] [facility] [address] [id number] [place] [address]- 0388 Feb, [facility] [place] [facility] [address] [id number] [place] [address]- 3334 Feb, [facility] [place] [facility] [address] [id number] [place] [address]- 4966 Feb, [facility] [place] [facility] [address] [id number] [place] [address]- 7669 Feb, [facility] [place] [facility] [address] [id number] [place] [address]- 3135 Feb, [facility] [place] [facility] [address] [id number] [place] [address]- 9797 Feb, [facility] [place] [facility] [address] [id number] [place] [address]- 5528 Jan, [facility] [place] [facility] [address] [id number] [place] [address]- 0651 Jan, [facility] [place] [facility] [address] [id number] [place] [address]- 6296 Jan, [facility] [place] [facility] [address] [id number] [place] [address]- 8200 Jan, [facility] [place] [facility] [address] [id number] [place] [address]- 8300 Jan, [facility] [place] [facility] [address] [id number] [place] [address]- 7122 Jan, [facility] [place] [facility] [address] [id number] [place] [address]- 9776 Dec, [facility] [place] [facility] [address] [id number] [place] [address]- 8102 Dec, [facility] [place] [facility] [address] [id number] [place] [address]- 9641 Dec, [facility] [place] [facility] [address] [id number] [place] [address]- 2982 Dec, [facility] [place] [facility] [address] [id number] [place] [address]- 3967 Dec, [facility] [place] [facility] [address] [id number] [place] [address]- 8842 Dec, [facility] [place] [facility] [address] [id number] [place] [address]- 7117 Dec, [facility] [place] [facility] [address] [id number] [place] [address]- 3199 Dec, [facility] [place] [facility] [address] [id number] [place] [address]- 2016 Nov, [facility] [place] [facility] [address] [id number] [place] [address]- 9351 Nov, [facility] [place] [facility] [address] [id number] [place] [address]- 3855 Oct, [facility] [place] [facility] [address] [id number] [place] [address]- 3104 Oct, [facility] [place] [facility] [address] [id number] [place] [address]- 8185 Oct, [facility] [place] [facility] [address] [id number] [place] [address]- 3544 Aug, [facility] [place] [facility] [address] [id number] [place] [address]- 9494 Aug, [facility] [place] [facility] [address] [id number] [place] [address]- 7807 Aug, [facility] [place] [facility] [address] [id number] [place] [address]- 8159 Aug, [facility] [place] [facility] [address] [id number] [place] [address]- 1419 July, [facility] [place] [facility] [address] [id number] [place] [address]- 8938 July, [facility] [place] [facility] [address] [id number] [place] [address]- 5350 July, [facility] [place] [facility] [address] [id number] [place] [address]- 1059 July, [facility] [place] [facility] [address] [id number] [place] [address]- 7357 July, [facility] [place] [facility] [address] [id number] [place] [address]- 0767 July, [facility] [place] [facility] [address] [id number] [place] [address]- 8457 Jun, [facility] [place] [facility] [address] [id number] [place] [address]- 0531 Jun, [facility] [place] [facility] [address] [id number] [place] [address]- 7311 Jun, [facility] [place] [facility] [address] [id number] [place] [address]- 4032 Jun, [facility] [place] [facility] [address] [id number] [place] [address]- 1965 Apr, [facility] [place] [facility] [address] [id number] [place] [address]- 7946 14 Apr, [address] [facility] [address] [id number] [place] [address]- 7083 Mar, [facility] [address] [id number] [place] [address]- 4116 Mar, [facility] [address] [id number] [place] [address]- 1991 Mar, [facility] [address] [id number] [place] [address]- 0911 Mar, [facility] [address] [id number] [place] [address]- 3422 16 Feb, 2013 [facility] [address] [id number] [place] [address]- 7261 16 Feb, [address] [facility] [address] [id number] [place] [address]- 5469 13 Feb, 2013 [facility] [address] [id number] [place] [address]- 8167 13 Feb, [address] [facility] [address] [id number] [place] [address]- 1541 13 Feb, 2013 [facility] [address] [id number] [place] [address]- 0660 13 Feb, [address] [facility] [address] [id number] [place] [address]- 9368 11 Feb, 2013 [facility] [address] [id number] [place] [address]- 6538 11 Feb, 2013 [facility] [place] [facility] [address] [id number] [place] [address]- 8809 04 Feb, 2013 [facility] [address] [id number] [place] [address]- 7976 03 Feb, [address] [facility] [address] [id number] [place] [address]- 1240 Feb, [facility] [place] [facility] [address] [id number] [place] [address]- 5325 Jan, [facility] [place] [facility] [address] [id number] [place] [address]- 5762 Jan, [facility] [place] [facility] [address] [id number] [place] [address]- 3364 Jan, [facility] [place] [facility] [address] [id number] [place] [address]- 5309 Jan, [facility] [place] [facility] [address] [id number] [place] [address]- 4864 Dec, [facility] [place] [facility] [address] [id number] [place] [address]- 3895 Dec, [facility] [place] [facility] [address] [id number] [place] [address]- 2189 Dec, [facility] [place] [facility] [address] [id number] [place] [address]- 9818 Dec, [facility] [place] [facility] [address] [id number] [place] [address] Dec, [facility] [place] [facility] [address] [id number] [place] [address] Dec, [facility] [place] [facility] [address] [id number] [place] [address] Oct, [facility] [place] [facility] [address] [id number] [address] Oct, [facility] [place] [facility] [address] [id number] [place] [address] Oct, [facility] [place] [facility] [address] [id number] [place] [address] Oct, [facility] [place] [facility] [address] [id number] [place] [address] Sep, [facility] [place] [facility] [address] [id number] [place] [address] Sep[facility] [address] [id number] [place] [address] Aug, [facility] [address] [id number] [place] [address] July, [facility] [address] [id number] [place] [address] Jun, [facility] [address] [id number] [place] [address] Jun, [facility] [address] [id number] [place] [address] Jun, [facility] [address] [id number] [place] [address] [address] May, [facility] [address] [id number] [place] [address] May, [facility] [address] [id number] [place] [address] May, [facility] [address] [id number] [place] [address] Apr, [facility] [address] [id number] [place] [address] Mar, [facility] [address] [id number] [place] [address] Mar, [facility] [address] [id number] [place] [address] Mar, [facility] [address] [id number] [place] [address] Feb, [facility] [place] [facility] [address] [id number] [place] [address] Feb, [facility] [address] [id number] [place] [address] Feb, [facility] [place] [facility] [address] [id number] [place] [address] Feb, [facility] [place] [facility] [address] [id number] [place] [address] Jan, [facility] [place] [facility] [address] [id number] [place] [address] Jan, [facility] [place] [facility] [address] [id number] [place] [address] Jan, [facility] [place] [facility] [address] [address] [id number] [place] [address] Dec, [facility] [place] [facility] [address] [id number] [place] [address] Dec, [facility] [place] [facility] [address] [id number] [place] [address] Oct, [facility] [place] [facility] [address] [id number] [place] [address] Sep, [facility] [place] [facility] [address] [id number] [place] [address] Sep, [facility] [place] [facility] [address] [id number] [place] [address] July, [facility] [place] [facility] [address] [id number] [place] [address] July, [facility] [place] [facility] [address] [id number] [place] [address] Jun, [facility] [place] [facility] [address] [id number] [place] [address] Jun, [facility] [place] [facility] [address] [id number] [place] [address] Jun, [facility] [place] [facility] [address] [id number] [place] [address] Jun, [facility] [place] [facility] [address] [id number] [place] [address] Apr, [facility] [id number] [address] Apr, [facility] [id number] [address] Mar, [facility] [id number] [address] Mar, [facility] [id number] [address] Mar, [facility] [id number] [address] Feb, [facility] [id number] [address] Feb, [facility] [id number] [address] Feb, [facility] [id number] [address] Feb, [facility] [id number] [address] Feb, [facility] [id number] [address] Jan, [facility] [id number] [place] [address] Mar, [facility] [address] [id number] [address] Mar, [facility] [id number] [address] Jan, IMMUNIZATIONS No Known Immunizations SOCIAL HISTORY Never Assessed REASON FOR VISIT PLAN OF CARE VITAL SIGNS MEDICATIONS Medication Instructions Dosage Frequency Start Date End Date Duration Status Albuterol Sulfate 90 mcg/actuation Inhalation every 6 hrs 2 puffs by Inhalation route every 6 hours as needed PRN cough or wheezing 6h May, 30 days Active Flovent HFA 44 MCG/ACT Inhalation Twice a day 2 puffs 12h 10 Jul, 2015 30 days Active RESULTS No Results PROCEDURES No Known [...] treatment for suicidal tendencies, cutter, burner, biter ([place] x2, [place] x1, [place] x3) Hospitalization History Acute Migraines/Vomiting 2014 Hospitalization History Childbirth 01/31/2016
--- OUTSIDE RECORDS SUMMARY | 2018-06-01 07:27 | XMS REPORT ---
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 34556212 Problem Borderline personality disorder F60.3 Active 70241831 Problem BMI 50.0-59.9, adult Z68.43 Active 482868944 Problem Other chronic pain G89.29 Active 17292308 Problem Morbid (severe) obesity due to excess calories E66.01 Active 770230334 Problem Body mass index (BMI) of 45.0-49.9 in adult Z68.42 Active 021214952 Problem Lumbago with sciatica, right side M54.41 Active 380225048338288 Problem Lumbago with sciatica, left side M54.42 Active 923473958 Problem History of long-term use of multiple prescription drugs Z92.29 Active 896690369 Problem Family history of hyperlipidemia Z83.49 Active 873489525 Problem Tobacco abuse Z72.0 Active 43079255 Problem Bipolar disorder F31.9 Active 82102508 Problem Schizophrenia F20.9 Active 93165962 Problem Moderate depressed bipolar I disorder F31.32 Active 05183598 Problem Moderate episode of recurrent major depressive disorder F33.1 Active 782912540 Problem Moderate persistent asthma without complication J45.40 Active 745413594 Problem BUTCH (generalized anxiety disorder) F41.1 Active 72092845 ALLERGIES Substance Reaction Event Type Date Status Viibryd rash Drug Allergy Mar, Active ENCOUNTERS Encounter Location Date Diagnosis [facility] [address] [facility] [id number] [address] 14 May, 2018 BMI 50.0-59.9, adult Z68.43 ; Rash R21 ; Morbid (severe) obesity due to excess calories E66.01 and Infection, fungal, left foot B35.3 [place] [address] [place] [address] 64898- 1483 May, [place] [address] [place] [id number] [place] [address] 30003- 2599 Mar, [place] [address] [place] [id number] [place] [address] 20619- 1347 Mar, [place] [address] [id number] [place] [address] 16376- 0968 Mar, BUTCH (generalized anxiety disorder) F41.1 ; 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 ; Borderline personality disorder F60.3 ; Cannabis use disorder, mild, abuse F12.10 and BMI 45.0-49.9, adult Z68.42 [place] [address] [id number] [place] [address] 56279- 1616 Feb, BMI 45.0-49.9, adult Z68.42 ; Lumbago with sciatica, left side M54.42 ; Lumbago with sciatica, right side M54.41 and Other chronic pain G89.29 [place] [address] [place] [address] 68308- 8132 Feb, BUTCH (generalized anxiety disorder) F41.1 ; 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 ; Borderline personality disorder F60.3 and Cannabis use disorder, mild, abuse F12.10 [place] [address] [place] [address] 48936- 7250 Jan, BUTCH (generalized anxiety disorder) F41.1 ; 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 ; Borderline personality disorder F60.3 and Cannabis use disorder, mild, abuse F12.10 [place] [address] [address] Dec, Cold intolerance R68.89 ; Morbid (severe) obesity due to excess calories E66.01 ; Screening for lipid disorders Z13.220 and Screening for diabetes mellitus (DM) Z13.1 [place] [id number] [place] [address] 03663- 1098 Dec, Body mass index (BMI) of 45.0-49.9 in adult Z68.42 ; Morbid (severe) obesity due to excess calories E66.01 ; Screening for diabetes mellitus (DM) Z13.1 ; Screening for lipid disorders Z13.220 and Cold intolerance R68.89 [place] [id number] [place] [address] 60807- 8404 Nov, BUTCH (generalized anxiety disorder) F41.1 ; 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 ; Borderline personality disorder F60.3 and Cannabis use disorder, mild, abuse F12.10 [place] [id number] [place] [address] 95555- 9714 Oct, [address] 82375- 0958 Oct, BUTCH (generalized anxiety disorder) F41.1 ; 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 ; Borderline personality disorder F60.3 and Cannabis use disorder, mild, abuse F12.10 [place] [id number] [place] [address] 20237- 1522 Sep, Encounter for test, result unknown Z32.00 [place] [id number] [place] [address] 67936- 1959 15 Aug, 2016 Low back pain M54.5 ; Dermatitis L30.9 ; Moderate episode of recurrent major depressive disorder F33.1 ; Morbid (severe) obesity due to excess calories E66.01 ; Body mass index (BMI) of 40.0-44.9 in adult Z68.41 and BMI 40.0-44.9, adult Z68.41 [place] [id number] [place] [address] 38990- 8024 13 Aug, 2016 [place] [id number] [place] [address] 9[address] 07 Aug, 2016 [facility] [id number] [place] [address] 46322- 7520 Aug, Moderate depressed bipolar I disorder F31.32 ; Schizophrenia F20.9 and Bipolar disorder, current episode mixed, moderate F31.62 [facility] [address] [place] [id number] [place] [address] 97640- 0332 May, Nexplanon insertion Z30.017 [facility] [address] [place] [id number] [place] [address] 73875- 5849 Apr, History of long-term use of multiple prescription drugs Z92.29 ; Cannabis abuse F12.10 ; Moderate depressed bipolar I disorder F31.32 and Bipolar disorder, current episode mixed, moderate F31.62 [place] [address] [place] [id number] [place] [address] 69777- 2595 Mar, Cannabis abuse F12.10 and Bipolar disorder F31.9 [place] [address] [place] [id number] [place] [address] 83831- 8753 Mar, [place] [address] [place] [id number] [place] [address] 42953- 1691 Mar, exam Z39.2 [place] [address] [place] [id number] [place] [address] 70040- 4950 Feb, Bipolar disorder, current episode mixed, moderate F31.62 [place] [address] [place] [id number] [place] [address] 99418- 9774 Feb, [facility] [address] [place] [id number] [place] [address] 10228- 6713 Jan, [place] [address] [place] [id number] [place] [address] 63862- 1474 Jan, [facility] [address] [place] [address] 79945- 1473 Jan, care, subsequent in third trimester Z34.83 and 37 weeks gestation of Z3A.37 [facility] [place] [facility] [address] [address] 3860 17 Jan, 2016 Encounter for dental examination and cleaning without abnormal findings Z01.20 [place] [address] [place] [address] [address]- 9941 10 Jan, 2016 [place] [address] [place] [id number] [place] [address] 50187- 7258 Jan, care, subsequent in third trimester Z34.83 and 36 weeks gestation of Z3A.36 [place] [address] [place] [id number] [place] [address] 17831- 5135 03 Jan, 2016 Third trimester at less than 36 weeks Z33.1 ; screening for streptococcus B Z36 and 35 weeks gestation of Z3A.35 [place] [address] [place] [id number] [place] [address] 01925- 6259 21 Dec, 2015 care, subsequent in third trimester Z34.83 and 34 weeks gestation of Z3A.34 [place] [address] [place] [id number] [place] [address] 89698- 3057 18 Dec, 2015 [place] [address] [place] [id number] [place] [address] 64088- 4781 Dec, Urine frequency R35.0 [place] [address] [place] [id number] [place] [address] 30399- 8080 Dec, Urine frequency R35.0 [place] [address] [id number] [place] [address] 33365- 2463 Dec, Third trimester at less than 36 weeks Z33.1 ; 31 weeks gestation of Z3A.31 and Encounter for immunization Z23 [place] [address] [place] [id number] [place] [address] 76583- 0015 Dec, [place] [address] [id number] [place] [address] 13993- 7353 Nov, Third trimester at less than 36 weeks Z33.1 ; Encounter for immunization Z23 and 29 weeks gestation of Z3A.29 [place] [address] [place] [id number] [address]- 7898 Nov, Second trimester Z33.1 and Diabetes mellitus screening Z13.1 [place] [address] [address]- 3435 Oct, Second trimester Z33.1 and 23 weeks gestation of Z3A.23 [place] [address] [address] 1901 Oct, [place] [address] [address]- 0531 Sep, [place] [address] [address]- 9272 Sep, Second trimester Z33.1 ; 18 weeks gestation of Z3A.18 ; History of long-term use of multiple prescription drugs Z92.29 ; complicated by previous recurrent miscarriages, 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 and , high-risk, second trimester O09.92 [place] [address] [address]- 1868 Aug, [place] [address] [address]- 7987 Aug, , high-risk, second trimester O09.92 and 14 weeks gestation of Z3A.14 [place] [address] [place] [id number] [address]- 3560 July, complicated by previous recurrent miscarriages, 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 [place] [address] [place] [id number] [address]- 6598 July, , high-risk, second trimester O09.92 ; Moderate persistent asthma without complication J45.40 and 16 weeks gestation of Z3A.16 [facility] [address] [id number] [place], [place] [address] July [place] [address] [address]- 9886 July, [facility] [id number] [place] [address] 31263- 6234 July, Moderate depressed bipolar I disorder F31.32 ; Cannabis abuse F12.10 and First trimester Z33.1 [facility] [address] [place] [id number] [place] [address] 62432- 2911 Jun, [facility] [address] [place] [id number] [place] [address] 27626- 2150 Jun, [facility] [address] [place] [id number] [place] [address] 82923- 3683 Jun, confirmed by positive urine test Z32.01 [place] [address] [place] [id number] [place] [address] 83626- 0010 Jun, Moderate depressed bipolar I disorder F31.32 and Cannabis abuse F12.10 [place] [address] [place] [id number] [place] [address] 30487- 8677 May, [place] [address] [place] [id number] [place] [address] 88694- 0488 May, [place] [address] [place] [id number] [place] [address] 22893- 4258 May, Moderate depressed bipolar I disorder F31.32 and Cannabis abuse F12.10 [place] [address] [place] [address] 91296- 0005 May, Routine screening for STI (sexually transmitted infection) Z11.3 ; Moderate depressed bipolar I disorder F31.32 ; Unprotected sexual intercourse Z72.51 ; History of irregular menstrual bleeding Z87.42 ; Screening for malignant neoplasm of cervix Z12.4 and Vaginal discharge N89.8 [place] [address] [place] [address] 87797- 3075 May, Moderate depressed bipolar I disorder F31.32 and Cannabis abuse F12.10 [place] [address] [place] [id number] [place] [address] 61941- 6056 Apr, History of long-term use of multiple prescription drugs Z92.29 [place] [id number] [place] [address] 63218- 3010 Apr, Tobacco abuse Z72.0 ; High risk bisexual behavior Z72.53 ; History of long-term use of multiple prescription drugs Z92.29 and Family history of hyperlipidemia Z83.[address] 76191- 7340 Apr, [place] [id number] [place] [address] 01613- 2764 Jan, Posttraumatic stress disorder F43.10 ; Borderline personality disorder F60.3 and Bipolar disorder with severe depression F31.4 [place] [id number] [place] [address] 64361- 7940 14 Nov, 2014 Bipolar I disorder, most recent episode (or current) mixed, moderate 296.62 ; Posttraumatic stress disorder 309.81 and Nondependent cannabis abuse, unspecified 305.20 [place] [id number] [place] [address] 55474- 1566 Nov, Posttraumatic stress disorder 309.81 ; Attention deficit 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.00 and Bipolar I disorder, most recent episode (or current) mixed, moderate 296.62 [place] [id number] [place] [address] 23592- 5196 Oct, [place] [id number] [place] [address] 89561- 3641 Sep, Family history of diabetes mellitus V18.0 ; Fatigue 780.79 ; Tobacco abuse 305.1 and Overweight 278.02 [place] [id number] [place] [address] 75527- 7047 Aug, [place] [id number] [place] [address] 47807- 7115 Aug, [address] 48161- 2376 Aug, [facility] [address] [place] [address] 575768- 4697 Aug, Bipolar I disorder, most recent episode (or current) mixed, moderate 296.62 and Nondependent cannabis abuse, unspecified 305.20 [facility] [address] [id number] [place] [address] 852336- 5587 July, Bipolar I disorder, most recent episode (or current) mixed, moderate 296.62 ; Posttraumatic stress disorder 309.81 ; Attention deficit 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.00 and Nondependent cannabis abuse, unspecified 305.20 [facility] [address] [id number] [place] [address] 702901- 7665 July, [facility] [address] [id number] [place] [address] 75248- 4622 Jun, [facility] [address] [id number] [place] [address] 37364- 5195 Jun, [facility] [address] [address] [id number] [place] [address] 03413- 4639 May, [facility] [id number] [place] [address] 51318- 7285 May, [facility] [id number] [place] [address] 39520- 1047 May, [facility] [id number] [place] [address] 59905- 1766 May, [facility] [address] [place] [address] 33703- 4258 May, [facility] [id number] [place] [address] 21999- 4312 May, [facility] [id number] [place] [address] 97751- 7576 Apr, [facility] [id number] [place] [address] 23460- 1895 Apr, [facility] [place] [facility] [address] [id number] [place] [address]- 3984 Mar, [facility] [place] [facility] [address] [id number] [place] [address]- 2132 Mar, [facility] [place] [facility] [address] [id number] [place] [address]- 3154 Mar, [facility] [place] [facility] [address] [id number] [place] [address]- 4967 Mar, [facility] [place] [facility] [address] [id number] [place] [address]- 6148 Mar, [facility] [place] [facility] [address] [id number] [place] [address]- 7158 Mar, [facility] [place] [facility] [address] [id number] [place] [address]- 9357 Feb, [facility] [place] [facility] [address] [id number] [place] [address]- 5161 Feb, [facility] [place] [facility] [address] [id number] [place] [address]- 7222 Feb, [facility] [place] [facility] [address] [id number] [place] [address]- 8484 Feb, [facility] [place] [facility] [address] [id number] [place] [address]- 6017 Feb, [facility] [place] [facility] [address] [id number] [place] [address]- 7155 Feb, [facility] [place] [facility] [address] [id number] [place] [address]- 0982 Feb, [facility] [place] [facility] [address] [id number] [place] [address]- 4167 Jan, [facility] [place] [facility] [address] [id number] [place] [address]- 5879 Jan, [facility] [place] [facility] [address] [id number] [place] [address]- 6930 Jan, [facility] [place] [facility] [address] [id number] [place] [address]- 7471 Jan, [facility] [place] [facility] [address] [id number] [place] 9078 Jan, [facility] [place] [facility] [address] [id number] [place] [address]- 6727 Jan, [facility] [place] [facility] [address] [id number] [place] [address]- 7901 Dec, [facility] [place] [facility] [address] [id number] [place]- 1351 Dec, [facility] [place] [facility] [address] [id number] [place] [address]- 5049 Dec, [facility] [place] [facility] [address] [id number] [place] [address]- 6675 Dec, [facility] [place] [facility] [address] [id number] [place] [address]- 7612 Dec, [facility] [place] [facility] [address] [id number] [place] [address]- 2742 Dec, [facility] [place] [facility] [address] [id number] [place] [address]- 4495 Dec, [facility] [place] [facility] [address] [id number] [place] [address]- 7160 Dec, [facility] [place] [facility] [address] [id number] [address]- 5106 Nov, [facility] [place] [facility] [address] [id number] [place] [address]- 9941 Nov, [facility] [place] [facility] [address] [id number] [place] [address]- 4856 Oct, [facility] [place] [facility] [address] [id number] [place] [address]- 1152 Oct, [facility] [place] [facility] [address] [id number] [place] [address]- 0884 Oct, [facility] [place] [facility] [address] [id number] [place] [address]- 7239 Aug, [facility] [place] [facility] [address] [id number] [place] 5800 Aug, [facility] [place] [facility] [address] [id number] [place] [address]- 3028 Aug, [facility] [place] [facility] [address] [id number] [place] [address]- 4382 Aug, [facility] [place] [facility] [address] [id number] [place] [address]- 7359 July, [facility] [place] [facility] [address] [id number] [place] [address]- 6673 July, [facility] [place] [facility] [address] [id number] [place] [address]- 6816 July, [facility] [place] [facility] [address] [id number] [place] [address]- 7222 July, [facility] [place] [facility] [address] [id number] [place] [address]- 1340 July, [facility] [place] [facility] [address] [id number] [place] [address]- 9290 July, [facility] [place] [facility] [address] [id number] [place] [address]- 3540 Jun, [facility] [place] [facility] [address] [id number] [place] [address]- 1990 Jun, [facility] [place] [facility] [address] [id number] [place] [address]- 3482 Jun, [facility] [place] [facility] [address] [id number] [place] [address]- 8861 14 Jun, 2013 [facility] [place] [facility] [address] [id number] [place] [address]- 0972 14 Apr, 2013 [facility] [place] [facility] [address] [id number] [place] [address]- 5583 14 Apr, 2013 [facility] [place] [facility] [address] [id number] [place] [address]- 4557 Mar, [facility] [place] [facility] [address] [facility] [id number] [place] [address]- 8804 Mar, [facility] [place] [facility] [address] [id number] [place] [address]- 7957 Mar, [facility] [place] [facility] [address] [id number] [place] [address]- 3260 Mar, [facility] [place] [facility] [address] [id number] [place] 3195 16 Feb, 2013 [facility] [place] [facility] [address] [id number] [place] [address]- 6592 16 Feb, 2013 [facility] [place] [facility] [address] [id number] [place] [address]- 0426 13 Feb, 2013 [facility] [place] [facility] [address] [id number] [place] [address]- 7224 13 Feb, 2013 [facility] [place] [facility] [address] [id number] [place] [address]- 9557 13 Feb, 2013 [facility] [place] [facility] [address] [id number] [place] [address]- 5271 13 Feb, 2013 [facility] [place] [facility] [address] [id number] [place] [address]- 2020 11 Feb, 2013 [facility] [place] [facility] [address] [id number] [place] [address] 11 Feb, 2013 [facility] [place] [facility] [address] [id number] [place] [address] 04 Feb, 2013 [facility] [place] [facility] [address] [id number] [place] [address] 03 Feb, 2013 [facility] [place] [facility] [address] [id number] [place] [address] Feb, [facility] [address] [id number] [place] [address] Jan, [facility] [place] [facility] [address] [id number] [place] [address] Jan, [facility] [address] [id number] [place] [address] Jan, [facility] [place] [facility] [address] [id number] [place] [address] Jan, [facility] [address] [id number] [place] [address] Dec, [facility] [place] [facility] [address] [id number] [place] [address] Dec, [facility] [place] [facility] [address] [id number] [place] [address] Dec, [facility] [place] [facility] [address] [id number] [place] [address] Dec, [facility] [place] [facility] [address] [id number] [place] [address] Dec, [facility] [address] [id number] [place] [address] Dec, [facility] [place] [facility] [address] [id number] [place] [address] Oct, [facility] [place] [facility] [address] [id number] [place] [address] Oct, [facility] [place] [facility] [address] [id number] [place] [address] Oct, [facility] [place] [facility] [address] [id number] [place] [address] 1696 Oct, [facility] [place] [facility] [address] [id number] [place] [address] Sep, [facility] [address] [id number] [place] [address] Sep, [facility] [place] [facility] [address] [id number] [place] [address] Aug, [facility] [place] [facility] [address] [id number] [place] [address] July, [facility] [place] [facility] [address] [id number] [place] [address] Jun, [facility] [address] [id number] [place] [address] Jun, [facility] [place] [facility] [address] [id number] [place] [address] Jun, [facility] [address] [id number] [place] [address] May, [facility] [place] [facility] [address] [id number] [place] [address] May, [facility] [place] [facility] [address] [id number] [place] [address] May, [facility] [place] [facility] [address] [id number] [place] [address] Apr, [facility] [place] [facility] [address] [id number] [place] [address] Mar, [facility] [place] [facility] [address] [address] [id number] [place] [address] Mar, [facility] [place] [facility] [address] [id number] [place] [address] Mar, [facility] [place] [facility] [address] [id number] [place] [address] Feb, [facility] [place] [facility] [address] [id number] [place] [address] Feb, [facility] [place] [facility] [address] [id number] [place] [address] Feb, [facility] [place] [facility] [address] [id number] [place] [address] Feb, [facility] [place] [facility] [address] [id number] [place] [address] Jan, [facility] [place] [facility] [address] [facility] [id number] [place] [address] Jan, [facility] [place] [facility] [address] [id number] [place] [address] Jan, [facility] [place] [facility] [address] [id number] [place] [address], [place] [address] Dec, [facility] [place] [facility] [address] [id number] [place] [address] Dec, [facility] [place] [facility] [id number] [place] [address] Oct, [facility] [place] [facility] [address] [id number] [place] [address] Sep, [facility] [place] [facility] [address] [id number] [place] [address] Sep, [facility] [place] [facility] [address] [id number] [place] [address] July, [facility] [place] [facility] [id number] [place] [address] July, [facility] [place] [facility] [address] [id number] [place] [address] Jun, [facility] [place] [facility] [address] [id number] [place] [address] Jun, [facility] [place] [facility] [address] [facility] [id number] [place] [address] Jun, [facility] [place] [facility] [address] [id number] [place] [address] Jun, [facility] [place] [facility] [address] [facility] [id number] [place] [address] Apr, [facility] [place] [address] [facility] [id number] [place] [address] Apr, [facility] [place] [address] [facility] [id number] [place] [address] Mar, [facility] [place] [address] [facility] [id number] [place] [address] Mar, [facility] [place] [address] [facility] [id number] [place] [address] Mar, [facility] [place] [id number] [address] Feb, [facility] [place] [id number] [address] Feb, [facility] [place] [id number] [address] Feb, [facility] [place] [id number] [address] Feb, [facility] [place] [id number] [address] Feb, [facility] [place] [id number] [address] Jan, [facility] [place] [address] [id number] [address] Mar, [facility] [place] [address] [id number] [address] Mar, [facility] [place] [address] [id number] [id number] Jan, IMMUNIZATIONS No Known Immunizations SOCIAL HISTORY Never Assessed REASON FOR VISIT JEWEL f/u PLAN OF CARE Activity Details Follow Up 3 Months Reason: f/u VITAL SIGNS Height 66 in 2017-04-01 Weight 307.6 lbs 2017-04-01 Heart Rate 92 bpm 2017-04-01 Respiratory Rate 20 2017-04-01 BMI 49.64 kg/m2 2017-04-01 Blood pressure systolic 124 mmHg 2017-04-01 Blood pressure diastolic 80 mmHg 2017-04-01 MEDICATIONS Medication Instructions Dosage Frequency Start Date End Date Duration Status Lexapro 20 MG Orally Once a day 1 tablet 24h Active Nexplanon 68 MG Subcutaneous Placed 05/12/2016 as directed May, 3 years Active Diclofenac Sodium 75 MG Orally Twice a day 1 tablet with food or milk 12h Feb, Mar, 30 day(s) Active BusPIRone HCl 10 mg Orally 3 times a day 2 tablets 8h Feb, Active Albuterol Sulfate 90 mcg/actuation 2 puffs by Inhalation route every 6 hours as needed PRN cough or wheezing May, Active Flovent HFA 44 MCG/ACT Inhalation Twice a day 2 puffs 12h July, Active Amitriptyline HCl 50 mg Orally Once a day at bedtime for sleep/migraines /2 to 1 tablet Jan, Active RESULTS No Results PROCEDURES No Known [...] treatment for suicidal tendencies, cutter, burner, biter ([place] x2, [place] x1, [place] x3) Hospitalization History Acute Migraines/Vomiting 2014 Hospitalization History Childbirth 01/31/2016
[2018-06-01] MEDS ORDERED: LIDOCAINE 1% INJ 20 ML 20 ML VIAL ONE (07:28)
[2018-06-01] MEDS ORDERED: BUP/EPI 0.5% 1:200,000 (SENSORCAINE) 30 ML VIAL ONE (07:28)
--- OUTSIDE RECORDS SUMMARY | 2018-06-01 07:28 | XMS REPORT ---
Author Author MAGUE IGLESIAS e[employer] Address Unknown Phone Unavailable Care Team Providers Care Time Lock Expert Name Role Phone MAGUE IGLESIAS CP Unavailable Allergies, Adverse Reactions, Alerts Substance [...] and conditions compl preg/chldbrth O99.89 Active Assessment 36 weeks gestation of Z3A.36 Active Problem Family history of hyperlipidemia Z83.49 Active Assessment care, subsequent in third trimester Z34.83 Active Problem History of long-term use of multiple prescription drugs Z92.29 Active Medications Medication Code System Code Instructions Start Date End Date Status Dosage [facility] [address]30 28-0.8 MG Orally daily July 15, 2015 1 Albuterol Sulfate [facility] [address]-47 90 mcg/actuation May 14, 2014 2 puffs by Inhalation route every 6 hours as needed PRN cough or wheezing Flovent HFA [facility] [address]-50 44 MCG/ACT Inhalation Twice a day July 15, 2015 2 puffs Procedures Procedure Coding System Code Date Office Visit, Est Pt., Level 2 CPT-4 68643 Jan 15, 2016 URINE-NO MICRO CPT-4 86605 Jan 15, 2016 Vital Signs Date/Time: Jan 15, 2016 Cardiac Monitoring Heart Rate 100 bpm Weight 275.3 lbs Height 66 in BMI 44.435 Index Blood Pressure Diastolic 78 mmHg Blood Pressure Systolic 124 mmHg Results Name Result Date Reference Range Unit Abnormality Flag UA OB DIP (IN HOUSE) ----Glucose Negative 20160115 ----Protein Negative 20160115 Summary Purpose eClinicalWorks Submission
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
--- OUTSIDE RECORDS SUMMARY | 2018-06-01 07:28 | XMS REPORT ---
Author Author MAGUE IGLESIAS e[employer] Address Unknown Phone Unavailable Care Team Providers Care Receiving Checker Name Role Phone MAGUE IGLESIAS Unavailable Allergies [...] Z33.1 Active Problem Underimmunization status Z28.3 Active Problem Oth diseases and conditions compl preg/chldbrth O99.89 Active Assessment 23 weeks gestation of Z3A.23 Active Problem Family history of hyperlipidemia Z83.49 Active Medications Medication Code System Code Instructions Start Date End Date Status Dosage [facility] [address] 28-0.8 MG Orally daily July 15, 2015 1 Flovent HFA [facility] [address]-85 44 MCG/ACT Inhalation Twice a day July 15, 2015 2 puffs Zoloft [facility] [address]-02 100 MG Orally Once a day Jan 15, 2015 1 tablet Albuterol Sulfate [facility] [address]-85 90 mcg/actuation May 14, 2014 2 puffs by Inhalation route every 6 hours as needed PRN cough or wheezing Procedures Procedure Coding System Code Date Office Visit, Est Pt., Level 2 CPT-4 84528 Oct 14, 2015 URINE-NO MICRO CPT-4 15914 Oct 14, 2015 Vital Signs Date/Time: Oct 14, 2015 Cardiac Monitoring Heart Rate 86 bpm Weight 261.9 lbs Height 66 in BMI 42.272 Index Blood Pressure Diastolic 83 mmHg Blood Pressure Systolic 135 mmHg Results No Known Results Summary Purpose eClinicalWorks Submission
[2018-06-01 07:29] LABS: BASOPHILS % (AUTO) 0 % (0-10); EOSINOPHILS # (AUTO) 0.2 10^3/uL (0.0-0.3); EOSINOPHILS % (AUTO) 1 % (0-10); HEMATOCRIT 45 % (35-52); HEMOGLOBIN 15.5 G/DL (11.5-16.0); LYMPHOCYTES # (AUTO) 2.9 X 10^3 (1.0-4.0); LYMPHOCYTES % (AUTO) 23 % (12-44); MEAN CORPUSCULAR HEMOGLOBIN 33 PG (25-34); MEAN CORPUSCULAR HGB CONC 35 G/DL (32-36); MEAN CORPUSCULAR VOLUME 95 FL (80-99); MEAN PLATELET VOLUME 8.8 FL (7.4-10.4); MONOCYTES # (AUTO) 0.9 X 10^3 (0.0-1.0); MONOCYTES % (AUTO) 7 % (0-12); NEUTROPHILS # (AUTO) 8.5 X 10^3 (1.8-7.8); NEUTROPHILS % (AUTO) 68 % (42-75); PLATELET COUNT 368 10^3/uL (130-400); RED CELL DISTRIBUTION WIDTH 13.8 % (10.0-14.5); WHITE BLOOD COUNT 12.6 10^3/uL (4.3-11.0)
--- OUTSIDE RECORDS SUMMARY | 2018-06-01 07:29 | XMS REPORT ---
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9 in adult Z68.42 Active 531781603 Problem Lumbago with sciatica, right side M54.41 Active 435365675219899 Problem Lumbago with sciatica, left side M54.42 Active 166310215 Problem History of long-term use of multiple prescription drugs Z92.29 Active 760514338 Problem Family history of hyperlipidemia Z83.49 Active 360509095 Problem Tobacco abuse Z72.0 Active 84188763 Problem Bipolar disorder F31.9 Active 87605110 Problem Schizophrenia F20.9 Active 88912134 Problem Moderate depressed bipolar I disorder F31.32 Active 54747816 Problem Moderate episode of recurrent major depressive disorder F33.1 Active 915796063 Problem Moderate persistent asthma without complication J45.40 Active 768518803 Problem BUTCH (generalized anxiety disorder) F41.1 Active 84501535 ALLERGIES Substance Reaction Event Type Date Status Viibryd rash Drug Allergy Feb, Active ENCOUNTERS Encounter Location Date Diagnosis [facility] [address] [facility] [id number] [address] July, BMI 50.0-59.9, adult Z68.43 ; Rash R21 ; Morbid (severe) obesity due to excess calories E66.01 and Infection, fungal, left foot B35.3 [place] [id number] [place] [address] 72152- 1609 May, [place] [address], [place] [address] Mar, [facility] [id number] [place] [address] 10215- 0023 Mar, [place] [id number] [place] [address] 49184- 7176 Mar, BUTCH (generalized anxiety disorder) F41.1 ; 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 ; Borderline personality disorder F60.3 ; Cannabis use disorder, mild, abuse F12.10 and BMI 45.0-49.9, adult Z68.42 [place] [id number] [place] [address] 77489- 1420 Feb, BMI 45.0-49.9, adult Z68.42 ; Lumbago with sciatica, left side M54.42 ; Lumbago with sciatica, right side M54.41 and Other chronic pain G89.29 [place] [id number] [place] [address] 86718- 4760 Feb, BUTCH (generalized anxiety disorder) F41.1 ; 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 ; Borderline personality disorder F60.3 and Cannabis use disorder, mild, abuse F12.10 [place] [id number] [place] [address] 80940- 1201 Jan, BUTCH (generalized anxiety disorder) F41.1 ; 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 ; Borderline personality disorder F60.3 and Cannabis use disorder, mild, abuse F12.10 [facility] [address], [place] [address] Dec, Cold intolerance R68.89 ; Morbid (severe) obesity due to excess calories E66.01 ; Screening for lipid disorders Z13.220 and Screening for diabetes mellitus (DM) Z13.[address] [address]- [address] Dec, Body mass index (BMI) of 45.0-49.9 in adult Z68.42 ; Morbid (severe) obesity due to excess calories E66.01 ; Screening for diabetes mellitus (DM) Z13.1 ; Screening for lipid disorders Z13.220 and Cold intolerance R68.[address] [address]- [address] Nov, BUTCH (generalized anxiety disorder) F41.1 ; 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 ; Borderline personality disorder F60.3 and Cannabis use disorder, mild, abuse F12.[address] 29644- 4411 Oct, [address] [address]65- 3831 Oct, BUTCH (generalized anxiety disorder) F41.1 ; 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 ; Borderline personality disorder F60.3 and Cannabis use disorder, mild, abuse F12.[address] 43568- 7008 Sep, Encounter for test, result unknown Z32.[address] 77387- 1540 15 Aug, 2016 Low back pain M54.5 ; Dermatitis L30.9 ; Moderate episode of recurrent major depressive disorder F33.1 ; Morbid (severe) obesity due to excess calories E66.01 ; Body mass index (BMI) of 40.0-44.9 in adult Z68.41 and BMI 40.0-44.9, adult Z68.[address] 78157- 2651 Aug, [address] [place] [address] Aug, [facility] [address] [address]25- 9270 Aug, Moderate depressed bipolar I disorder F31.32 ; Schizophrenia F20.9 and Bipolar disorder, current episode mixed, moderate F31.62 [facility] [id number] [place] [address] 76251- 7243 May, Nexplanon insertion Z30.017 [place] [address] 60050- 2416 Apr, History of long-term use of multiple prescription drugs Z92.29 ; Cannabis abuse F12.10 ; Moderate depressed bipolar I disorder F31.32 and Bipolar disorder, current episode mixed, moderate F31.62 [place] [id number] [place] [address] 03924- 0718 Mar, Cannabis abuse F12.10 and Bipolar disorder F31.9 [place] [address] 42626- 1471 Mar, [place] [address] 48225- 4460 Mar, exam Z39.2 [place] [address] 38118- 3140 Feb, Bipolar disorder, current episode mixed, moderate F31.62 [place] [id number] [place] [address] 34422- 7126 Feb, [place] [id number] [place] [address] 83727- 9526 Jan, [place] [address] 19668- 1170 Jan, [facility] [id number] [place] [address] 19175- 1120 Jan, care, subsequent in third trimester Z34.83 and 37 weeks gestation of Z3A.37 [facility] [address], [place] [address] 17 Jan, 2016 Encounter for dental examination and cleaning without abnormal findings Z01.20 [place] [id number] [place] [address] 09794- 5992 10 Jan, 2016 [place] [id number] [place] [address] 61507- 7715 10 Jan, 2016 care, subsequent in third trimester Z34.83 and 36 weeks gestation of Z3A.36 [facility] [id number] [place] [address] 29947- 1383 03 Jan, 2016 Third trimester at less than 36 weeks Z33.1 ; screening for streptococcus B Z36 and 35 weeks gestation of Z3A.35 [facility] [id number] [place] [address] 36459- 0447 21 Dec, 2015 care, subsequent in third trimester Z34.83 and 34 weeks gestation of Z3A.34 [place] [id number] [place] [address] 71414- 8751 18 Dec, 2015 [place] [id number] [place] [address] 10629- 5744 Dec, Urine frequency R35.0 [place] [id number] [place] [address] 11093- 0912 Dec, Urine frequency R35.0 [place] [id number] [place] [address] 06318- 8145 Dec, Third trimester at less than 36 weeks Z33.1 ; 31 weeks gestation of Z3A.31 and Encounter for immunization Z23 [facility] [id number] [place] [address] 41316- 1302 Dec, [place] [id number] [place] [address] 47931- 4046 Nov, Third trimester at less than 36 weeks Z33.1 ; Encounter for immunization Z23 and 29 weeks gestation of Z3A.29 [place] [id number] [address] 8696 Nov, Second trimester Z33.1 and Diabetes mellitus screening Z13.1 [place] [address], [place] [address] 2185 Oct, Second trimester Z33.1 and 23 weeks gestation of Z3A.23 [place] [address] [address]- 1482 Oct, [place] [address], [place] [address] 5394 Sep, [place] [address], [place] [address] 6167 Sep, Second trimester Z33.1 ; 18 weeks gestation of Z3A.18 ; History of long-term use of multiple prescription drugs Z92.29 ; complicated by previous recurrent miscarriages, 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40 and 16 weeks gestation of Z3A.16 [facility] [address] [id number] JULIET PETERS [address] July [place] [address] [address] July, [facility] [id number] [place] [address] 94630- 6054 July, Moderate depressed bipolar I disorder F31.32 ; Cannabis abuse F12.10 and First trimester Z33.1 [place] [id number] [place] [address] 57563- 1341 Jun, [place] [id number] [place] [address] 84757- 2159 Jun, [place] [id number] [place] [address] 92831- 4881 Jun, confirmed by positive urine test Z32.01 [place] [id number] [place] [address] 54353- 7315 Jun, Moderate depressed bipolar I disorder F31.32 and Cannabis abuse F12.10 [place] [id number] [place] [address] 10624- 8581 May, [place] [id number] [place] [address] 47865- 9644 May, [place] [id number] [place] [address] 39018- 7586 May, Moderate depressed bipolar I disorder F31.32 and Cannabis abuse F12.10 [place] [id number] [place] [address] 31874- 4353 May, Routine screening for STI (sexually transmitted infection) Z11.3 ; Moderate depressed bipolar I disorder F31.32 ; Unprotected sexual intercourse Z72.51 ; History of irregular menstrual bleeding Z87.42 ; Screening for malignant neoplasm of cervix Z12.4 and Vaginal discharge N89.8 [place] [address] [place] [address] 47649- 2015 May, Moderate depressed bipolar I disorder F31.32 and Cannabis abuse F12.10 [place] [id number] [place] [address] 34476- 0517 Apr, History of long-term use of multiple prescription drugs Z92.29 [place] [id number] [place] [address] 85785- 1064 Apr, Tobacco abuse Z72.0 ; High risk bisexual behavior Z72.53 ; History of long-term use of multiple prescription drugs Z92.29 and Family history of hyperlipidemia Z83.[address] [address]- 3472 Apr, [address] [address]06- 9403 Jan, Posttraumatic stress disorder F43.10 ; Borderline personality disorder F60.3 and Bipolar disorder with severe depression F31.4 [place] [id number] [place] [address] 88566- 9809 14 Nov, 2014 Bipolar I disorder, most recent episode (or current) mixed, moderate 296.62 ; Posttraumatic stress disorder 309.81 and Nondependent cannabis abuse, unspecified 305.20 [place] [id number] [place] [address] 21226- 4643 Nov, Posttraumatic stress disorder 309.81 ; Attention deficit 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.00 and Bipolar I disorder, most recent episode (or current) mixed, moderate 296.62 [place] [id number] [place] [address] 18896- 5029 Oct, [place] [id number] [place] [address] 35353- 3138 Sep, Family history of diabetes mellitus V18.0 ; Fatigue 780.79 ; Tobacco abuse 305.1 and Overweight 278.[address] 84181- 8039 Aug, [place] [id number] [place] [address] 28590- 4552 Aug, [address] 84488- 0155 Aug, [facility] [address], [place] [address]- [address] Aug, Bipolar I disorder, most recent episode (or current) mixed, moderate 296.62 and Nondependent cannabis abuse, unspecified 305.20 [facility] [address], [place] [address]- 1478 July, Bipolar I disorder, most recent episode (or current) mixed, moderate 296.62 ; Posttraumatic stress disorder 309.81 ; Attention deficit 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.00 and Nondependent cannabis abuse, unspecified 305.20 [facility] [address] [place] [address] 36060- 8690 July, [facility] [id number] [place] [address] 06009- 1146 Jun, [facility] [id number] [place] [address] 31364- 5549 Jun, [facility] [address], [place] [address]- 4849 May, [facility] [address] [place] [address] 89631- 5811 May, [facility] [address], [place] [address]- 1888 May, [facility] [address], [place] [address]- 7201 May, [facility] [address], [place] [address]- 9369 May, [facility] [address] 8560 May, [facility] [address] 3926 Apr, [facility] [address] [address] Apr, [facility] [address] [id number] [place] [address]- 6574 Mar, [facility] [place] [facility] [address] [id number] [place] [address]- 7204 Mar, [facility] [place] [facility] [address] [id number] [place] [address]- 7659 Mar, [facility] [place] [facility] [address] [id number] [place] [address]- 2123 Mar, [facility] [place] [facility] [address] [id number] [place] [address]- 4421 Mar, [facility] [place] [facility] [address] [id number] [place] [address]- 7449 Mar, [facility] [place] [facility] [address] [id number] [place] [address]- 9787 Feb, [facility] [place] [facility] [address] [id number] [place] [address]- 6358 Feb, [facility] [place] [facility] [address] [id number] [place] [address]- 6872 Feb, [facility] [place] [facility] [address] [id number] [place] [address]- 3557 Feb, [facility] [place] [facility] [address] [id number] [place] [address]- 6847 Feb, [facility] [place] [facility] [address] [id number] [place] [address]- 8032 Feb, [facility] [place] [facility] [address] [id number] [place] [address]- 1668 Feb, [facility] [place] [facility] [address] [id number] [place] [address]- 1557 Jan, [facility] [place] [facility] [address] [id number] [place] [address]- 2014 Jan, [facility] [place] [facility] [address] [id number], [place] [address]- 2372 Jan, [facility] [place] [facility] [address] [id number] [place] [address]- 7144 Jan, [facility] [place] [facility] [address] [id number] [place] [address]- 5336 Jan, [facility] [place] [facility] [address] [id number] [place] [address]- 3306 Jan, [facility] [place] [facility] [address] [id number] [place] [address]- 1586 Dec, [facility] [place] [facility] [address] [id number] [place] [address]- 8012 Dec, [facility] [place] [facility] [address] [id number] [place] [address]- 1397 Dec, [facility] [place] [facility] [address] [id number] [place] [address]- 9079 Dec, [facility] [place] [facility] [address] [id number] [place] [address]- 5556 Dec, [facility] [place] [facility] [address] [id number] [place] [address]- 2777 Dec, [facility] [place] [facility] [address] [id number] [place] [address]- 7916 Dec, [facility] [place] [facility] [address] [id number], [place] [address]- 8677 Dec, [facility] [place] [facility] [address] [id number], [place] [address]- 6148 Nov, [facility] [place] [facility] [address] [id number] [place] [address]- 0340 Nov, [facility] [place] [facility] [address] [id number] [place] [address]- 2510 Oct, [facility] [place] [facility] [address] [id number] [place] [address]- 4239 Oct, [facility] [place] [facility] [address] [id number] [place] [address]- 8405 Oct, [facility] [place] [facility] [address] [id number] [place] [address]- 4048 Aug, [facility] [place] [facility] [address] [id number] [place] [address]- 4146 Aug, [facility] [place] [facility] [address] [id number] [place] [address]- 7333 Aug, [facility] [place] [facility] [address] [id number] [place] [address]- 6537 Aug, [facility] [place] [facility] [address] [id number] [place] [address]- 2023 July, [facility] [place] [facility] [address] [id number] [place] [address]- 8343 July, [facility] [place] [facility] [address] [id number] [place] [address]- 3025 July, [facility] [place] [facility] [address] [id number] [place] [address]- 1763 July, [facility] [place] [facility] [address] [id number] [place] [address]- 1071 July, [facility] [place] [facility] [address] [id number] [place] [address]- 4290 July, [facility] [place] [facility] [address] [id number] [place] [address]- 4809 Jun, [facility] [place] [facility] [address] [id number] [place] [address]- 1107 Jun, [facility] [place] [facility] [address] [id number] [place] [address]- 6192 Jun, [facility] [place] [facility] [address] [id number] [place] [address]- 5988 Jun, [facility] [place] [facility] [address] [id number] [place] [address]- 8764 14 Apr, 2013 [facility] [address] [id number] [place] [address]- 9184 14 Apr, 2013 [facility] [place] [facility] [address] [id number] [place] [address]- 5857 Mar, [facility] [place] [facility] [address] [id number] [place] [address]- 2834 Mar, [facility] [place] [facility] [address] [id number] [place] [address]- 9443 Mar, [facility] [place] [facility] [address] [id number] [place] [address]- 9856 Mar, [facility] [place] [facility] [address] [id number] [place] [address]- 7171 16 Feb, 2013 [facility] [place] [facility] [address] [id number] [place] [address]- 9933 16 Feb, 2013 [facility] [place] [facility] [address] [id number] [place] [address]- 8317 13 Feb, 2013 [facility] [place] [facility] [address] [id number] [place] [address]- 3205 13 Feb, 2013 [facility] [place] [facility] [address] [id number] [place] [address]- 5514 13 Feb, 2013 [facility] [place] [facility] [address] [id number], [place] [address]- 4157 13 Feb, 2013 [facility] [place] [facility] [address] [id number], [place] [address]- 0543 11 Feb, 2013 [facility] [place] [facility] [address] [id number] [place] 1812 11 Feb, 2013 [facility] [place] [facility] [address] [id number] [place] [address]- 1766 04 Feb, 2013 [facility] [place] [facility] [address] [id number] [place] [address]- 1275 03 Feb, 2013 [facility] [place] [facility] [address] [id number] [place] [address]- 3566 Feb, [facility] [place] [facility] [address] [id number] [place] [address]- 7548 Jan, [facility] [place] [facility] [address] [id number] [place] [address]- 3017 Jan, [facility] [place] [facility] [address] [id number] [place] 7015 Jan, [facility] [place] [facility] [address] [id number] [place] [address]- 8758 Jan, [facility] [place] [facility] [address] [id number] [place] [address]- 5418 Dec, [facility] [place] [facility] [address] [id number] [place] [address]- 9775 Dec, [facility] [place] [facility] [address] [id number] [place] [address]- 4266 Dec, [facility] [place] [facility] [address] [id number] [place] [address]- 9057 Dec, [facility] [place] [facility] [address] [id number] [place] [address]- 3430 Dec, [facility] [place] [facility] [address] [id number] [place] [address]- 9261 Dec, [facility] [place] [facility] [address] [id number] [place] [address]- 0438 Oct, [facility] [place] [facility] [address] [id number] [place] [address]- 8511 Oct, [facility] [place] [facility] [address] [id number] [place] [address]- 5099 Oct, [facility] [place] [facility] [address] [id number] [place] [address]- 7975 Oct, [facility] [place] [facility] [address] [id number] [place] 6178 Sep, [facility] [place] [facility] [address] [id number] [place] [address]- 0153 Sep, [facility] [address] [id number] [place] [address] Aug, [facility] [address] [id number] [place] [address] July, [facility] [address] [id number] [place] [address] Jun, [facility] [address] [id number] [place] [address] Jun, [facility] [address] [id number] [place] [address] Jun, [facility] [address] [id number] [place] [address] May, [facility] [address] [id number] [place] [address] May, [facility] [address] [id number] [place] [address] May, [facility] [address] [id number] [place] [address] Apr, [facility] [address] [id number] [place] [address] Mar, [facility] [address] [id number] [place] [address] Mar, [facility] [address] [id number] [place] [address] Mar, [facility] [address] [id number] [place] [address] Feb, [facility] [address] [id number] [place] [address] Feb, [facility] [address] [id number] [place] [address] Feb, [facility] [place] [facility] [address] [id number] [place] [address] Feb, [facility] [place] [facility] [address] [id number] [place] [address] Jan, [facility] [place] [facility] [address] [id number] [place] [address] Jan, [facility] [place] [facility] [address] [id number] [place] [address] Jan, [facility] [place] [facility] [address] [id number] [place] [address] Dec, [facility] [place] [facility] [address] [id number] [place] [address] Dec, [facility] [place] [facility] [address] [id number] [place] [address] Oct, [facility] [place] [facility] [address] [id number] [place] [address] Sep, [facility] [place] [facility] [address] [id number] [place] [address] Sep, [facility] [place] [facility] [address] [id number] [place] [address] July, [facility] [place] [facility] [address] [id number] [place] [address] July, [facility] [place] [facility] [address] [id number] [place] [address] Jun, [facility] [facility] [facility] [address] [id number] [place] [address] Jun, [facility] [place] [facility] [address] [id number] [place] [address] Jun, [facility] [place] [facility] [address] [id number] [place] [address] Jun, [facility] [place] [facility] [address] [facility] [id number], [place] [address] 16 Apr, 2011 [facility] [address] [facility] [id number], [place] [address] Apr, [facility] [address] [facility] [id number], [place] [address] Mar, [facility] [address] [facility] [id number], [place] [address] Mar, [facility] [address] [facility] [id number], [place] [address] Mar, [facility] [address] [facility] [id number], [place] [address] Feb, [facility] [address] [facility] [id number][place] [address] Feb, [facility] [id number], [place] [address] Feb, [facility] [address] [facility] [id number][place] [address] Feb, [facility] [address] [id number] [address] Feb, [facility] [address] [id number] [address] Jan, [facility] [address] [id number], [place] [address] Mar, [facility] [address] [facility] [id number], [place] [address] Mar, [facility] [address] [id number], [place] [address] Jan, IMMUNIZATIONS No Known Immunizations SOCIAL HISTORY Never Assessed REASON FOR VISIT back pain: states has had ongoing problems, has worsened prior to having daughter in 2016. States over past couple of months has had increasing pain in bilat hips and knees adelaida moreno PLAN OF CARE Activity Details Follow Up prn Reason:w/ PCP VITAL SIGNS Height 66 in 2017-03-02 Weight 307.8 lbs 2017-03-02 Temperature 97.6 degrees Fahrenheit 2017-03-02 Heart Rate 84 bpm 2017-03-02 Respiratory Rate 20 2017-03-02 BMI 49.67 kg/m2 2017-03-02 Blood pressure systolic 116 mmHg 2017-03-02 Blood pressure diastolic 66 mmHg 2017-03-02 MEDICATIONS Medication Instructions Dosage Frequency Start Date End Date Duration Status Flovent HFA 44 MCG/ACT Inhalation Twice a day 2 puffs 12h July, Active Diclofenac Sodium 75 MG Orally Twice a day 1 tablet with food or milk 12h Feb, Mar, 30 day(s) Active Nexplanon 68 MG Subcutaneous Placed 05/12/2016 as directed May, 3 years Active Albuterol Sulfate 90 mcg/actuation 2 puffs by Inhalation route every 6 hours as needed PRN cough or wheezing May, Active BusPIRone HCl 10 mg Orally 3 times a day 2 tablets 8h Feb, 30 days Active Amitriptyline HCl 50 mg Orally Once a day at bedtime for sleep/migraines /2 to 1 tablet Jan, Active Lexapro 20 MG Orally Once a day 1 tablet 24h Active PredniSONE 20 mg Orally Once a day 1 tablet 24h Feb, Mar, 05 days Active RESULTS No Results PROCEDURES No [...] treatment for suicidal tendencies, cutter, burner, biter ([place] x2, [place] x1, [place] x3) Hospitalization History Acute Migraines/Vomiting 2014 Hospitalization History Childbirth 01/31/2016
--- OUTSIDE RECORDS SUMMARY | 2018-06-01 07:29 | XMS REPORT ---
Author Author MAGUE IGLESIAS Organization [facility] Address [address] [place] [address] Care Team Providers Care Power Transformer Assembler Name Role Phone HARRISDAYAN HERNANDEZHANY Unavailable PROBLEMS Type Condition ICD9-CM Code [id number] Code Onset Dates Condition Status SNOMED Code Problem Moderate depressed bipolar I disorder F31.32 Active 89032756 Problem Bipolar disorder, current episode mixed, moderate F31.62 Active 671775735 Problem Moderate persistent asthma without complication J45.40 Active 979253416 Problem Family history of hyperlipidemia Z83.49 Active 942366828 Problem History of long-term use of multiple prescription drugs Z92.29 Active 176927173 Problem Tobacco abuse Z72.0 Active 35633144 Problem High risk bisexual behavior Z72.53 Active 252874369 Problem Borderline personality disorder F60.3 Active 26004319 Problem BUTCH (generalized anxiety disorder) F41.1 Active 95127718 Problem Schizophrenia F20.9 Active 96165668 Problem Bipolar disorder F31.9 Active 54101028 Problem Cannabis use disorder, mild, abuse F12.10 Active 76468589 Problem 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
--- OUTSIDE RECORDS SUMMARY | 2018-06-01 07:29 | XMS REPORT ---
Author Author MAGUE IGLESIAS [employer] Address Unknown Phone Unavailable Care Team Providers Care Yard Supervisor Name Role Phone MAGUE IGLESIAS Unavailable Allergies [...]
--- OUTSIDE RECORDS SUMMARY | 2018-06-01 07:29 | XMS REPORT ---
Author Author LEELA AUSTIN Organization [facility] Address [address] [place] [address] Care Team Providers Care Eeg Technician Name Role Phone NORMAN LEELA Unavailable PROBLEMS Type Condition ICD9-CM Code ADQ53-[id number] Code Onset Dates Condition Status SNOMED Code Problem Moderate depressed bipolar I disorder F31.32 Active 55852955 Problem Bipolar disorder, current episode mixed, moderate F31.62 Active 961841859 Problem Moderate persistent asthma without complication J45.40 Active 745647387 Problem Family history of hyperlipidemia Z83.49 Active 535349480 Problem History of long-term use of multiple prescription drugs Z92.29 Active 266876125 Problem Tobacco abuse Z72.0 Active 51558485 Problem High risk bisexual behavior Z72.53 Active 661849891 Problem Borderline personality disorder F60.3 Active 84915655 Problem BUTCH (generalized anxiety disorder) F41.1 Active 13131417 Problem Schizophrenia F20.9 Active 40082849 Problem Bipolar disorder F31.9 Active 72723739 Problem Cannabis use disorder, mild, abuse F12.10 Active 10485259 Problem 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
--- OUTSIDE RECORDS SUMMARY | 2018-06-01 07:29 | XMS REPORT ---
Author Author HARRIS MAGUE Organization [facility] Address [address] [place] [address] Care Team Providers Care Security Strategist Name Role Phone HARRISDAYAN HERNANDEZHANY Unavailable PROBLEMS Type Condition ICD9-CM Code REW18-FN Code Onset Dates Condition Status SNOMED Code Problem Moderate depressed bipolar I disorder F31.32 Active 26097466 Problem Bipolar disorder, current episode mixed, moderate F31.62 Active 013129214 Problem Moderate persistent asthma without complication J45.40 Active 684789500 Problem Family history of hyperlipidemia Z83.49 Active 834022615 Problem History of long-term use of multiple prescription drugs Z92.29 Active 445541411 Problem Tobacco abuse Z72.0 Active 09053007 Problem High risk bisexual behavior Z72.53 Active 001502776 Problem Borderline personality disorder F60.3 Active 04707001 Problem BUTCH (generalized anxiety disorder) F41.1 Active 62845010 Problem Schizophrenia F20.9 Active 88093066 Problem Bipolar disorder F31.9 Active 70186518 Problem Cannabis use disorder, mild, abuse F12.10 Active 52415628 Problem 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 19633170 ALLERGIES Substance Reaction Event Type Date Status Viibryd rash Drug Allergy Mar, Active SOCIAL HISTORY No smoking Hx information available PLAN OF CARE Activity Details Follow Up When Nexplanon available Reason: VITAL SIGNS Height 66 in 2016-03-09 Weight 257.0 lbs 2016-03-09 Temperature 98.3 degrees Fahrenheit 2016-03-09 Heart Rate 100 bpm 2016-03-09 Respiratory Rate 18 2016-03-09 BMI 41.48 kg/m2 2016-03-09 Blood pressure systolic 108 mmHg 2016-03-09 Blood pressure diastolic 70 mmHg 2016-03-09 MEDICATIONS Medication Instructions Dosage Frequency Start Date End Date Duration Status Albuterol Sulfate 90 mcg/actuation 2 puffs by Inhalation route every 6 hours as needed PRN cough or wheezing May, Active Flovent HFA 44 MCG/ACT Inhalation Twice a day 2 puffs 12h July, Active Lexapro 10 MG Orally Once a day 1 tablet 24h Feb, 30 day(s) Active Depo-Provera 150 MG/ML Intramuscular every 12 weeks as directed Mar, 1 dose Active BusPIRone HCl 15 MG Orally Three times a day 1 tablet 8h Feb, 30 days Active RESULTS Name Result Date Reference Range TEST, URINE (IN HOUSE) 2016-03-09 RESULTS negative Lot # [id number] Control + Exp date 06/2017 PROCEDURES Procedure Date Ordered Related Diagnosis Body Site URINE TEST Mar 09, 2016 Office Visit, Est Pt., Level 3 Mar 09, 2016 THER/PROPH/DIAG INJ, SC/IM Mar 09, 2016 INJ MDRXYPRGESTRON CNTRACPT 150 MG Mar 09, 2016 IMMUNIZATIONS Vaccine Route Administration Date Status MEDRXYPROGESTERONE ACETATE IM Intramuscular Mar 09, 2016 Administered
[2018-06-01] MEDS ORDERED: IOPAMIDOL 61% 30 ML (ISOVUE 300) VIAL IV ONE (07:30)
--- OUTSIDE RECORDS SUMMARY | 2018-06-01 07:30 | XMS REPORT ---
Author Author HELENA CASILLAS Organization [facility] Address [address] [place] [address] Care Team Providers Care Embryology Professor Name Role Phone SONJAHELENA Unavailable PROBLEMS Type Condition ICD9-CM Code QEV50-YG Code Onset Dates Condition Status SNOMED Code Problem Cannabis use disorder, mild, abuse F12.10 Active 14666372 Problem Borderline personality disorder F60.3 Active 08768076 Problem BUTCH (generalized anxiety disorder) F41.1 Active 94753413 Problem Other chronic pain G89.29 Active 94013066 Problem Family history of hyperlipidemia Z83.49 Active 425261731 Problem Lumbago with sciatica, right side M54.41 Active [id number] Problem Body mass index (BMI) of 45.0-49.9 in adult Z68.42 Active 806499040 Problem 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 77826385 Problem Lumbago with sciatica, left side M54.42 Active 508480708 Problem Morbid (severe) obesity due to excess calories E66.01 Active 462333052 Problem High risk bisexual behavior Z72.53 Active 405771275 Problem Moderate depressed bipolar I disorder F31.32 Active 05438532 Problem History of long-term use of multiple prescription drugs Z92.29 Active 640116235 Problem Tobacco abuse Z72.0 Active 76622682 Problem Bipolar disorder F31.9 Active 76051139 Problem Schizophrenia F20.9 Active 03493072 Problem Moderate persistent asthma without complication J45.40 Active 438271045 Problem Moderate episode of recurrent major depressive disorder F33.1 Active 627674340 Problem Bipolar disorder, current episode mixed, moderate F31.62 Active 638435745 Problem Body mass index (BMI) of 40.0-44.9 in adult Z68.41 Active 469470084 ALLERGIES Substance Reaction Event Type Date Status Viibryd rash Drug Allergy Nov, Active ENCOUNTERS Encounter Location Date Diagnosis [facility] [id number] [address] July, [facility] [address] [address] May, [facility] [address] [address] Mar, [facility] [id number] [place] [address] 12680- 3868 Mar, [facility] [address] [address] Mar, BUTCH (generalized anxiety disorder) F41.1 ; 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 ; Borderline personality disorder F60.3 ; Cannabis use disorder, mild, abuse F12.10 and BMI 45.0-49.9, adult Z68.42 [facility] [id number] [place] [address] 79300- 5809 Feb, BMI 45.0-49.9, adult Z68.42 ; Lumbago with sciatica, left side M54.42 ; Lumbago with sciatica, right side M54.41 and Other chronic pain G89.29 [facility] [address] [address] Feb, BUTCH (generalized anxiety disorder) F41.1 ; 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 ; Borderline personality disorder F60.3 and Cannabis use disorder, mild, abuse F12.10 [facility] [id number] [address] Jan, BUTCH (generalized anxiety disorder) F41.1 ; 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 ; Borderline personality disorder F60.3 and Cannabis use disorder, mild, abuse F12.10 [facility] [id number] [address] Dec, Cold intolerance R68.89 ; Morbid (severe) obesity due to excess calories E66.01 ; Screening for lipid disorders Z13.220 and Screening for diabetes mellitus (DM) Z13.[address] [address]- [address] Dec, 2017 Body mass index (BMI) of 45.0-49.9 in adult Z68.42 ; Morbid (severe) obesity due to excess calories E66.01 ; Screening for diabetes mellitus (DM) Z13.1 ; Screening for lipid disorders Z13.220 and Cold intolerance R68.[address] [address]- [address] Nov, BUTCH (generalized anxiety disorder) F41.1 ; 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 ; Borderline personality disorder F60.3 and Cannabis use disorder, mild, abuse F12.[address] [address]- [address] Oct, [address] [address]- 7[address] Oct, BUTCH (generalized anxiety disorder) F41.1 ; 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 ; Borderline personality disorder F60.3 and Cannabis use disorder, mild, abuse F12.[address] [address]- [address]709 Sep, Encounter for test, result unknown Z32.[address] [address]- 8117 15 Aug, 2016 Low back pain M54.5 ; Dermatitis L30.9 ; Moderate episode of recurrent major depressive disorder F33.1 ; Morbid (severe) obesity due to excess calories E66.01 ; Body mass index (BMI) of 40.0-44.9 in adult Z68.41 and BMI 40.0-44.9, adult Z68.[address] [address]- 3118 13 Aug, [address] [address]37- 7238 Aug, [facility] [id number] [place] [address] 18976- 7773 Aug, Moderate depressed bipolar I disorder F31.32 ; Schizophrenia F20.9 and Bipolar disorder, current episode mixed, moderate F31.62 [facility] [id number] [place] [address] 31722- 3769 May, Nexplanon insertion Z30.017 [facility] [id number] [place] [address] 47885- 8614 Apr, History of long-term use of multiple prescription drugs Z92.29 ; Cannabis abuse F12.10 ; Moderate depressed bipolar I disorder F31.32 and Bipolar disorder, current episode mixed, moderate F31.62 [facility] [id number] [place] [address] 61336- 3920 Mar, Cannabis abuse F12.10 and Bipolar disorder F31.9 [facility] [id number] [place] [address] 60872- 6447 Mar, [facility] [id number] [place] [address] 31733- 6966 Mar, exam Z39.2 [facility] [id number] [place] [address] 27341- 2235 Feb, Bipolar disorder, current episode mixed, moderate F31.62 [facility] [id number] [place] [address] 91857- 2970 Feb, [facility] [id number] [place] [address] 98056- 3028 Jan, [facility] [id number] [place] [address] 13248- 0511 Jan, [facility] [address] [place] [address] 09639- 8624 Jan, care, subsequent in third trimester Z34.83 and 37 weeks gestation of Z3A.37 [facility] [address] [place] [address] 53144- 9107 17 Jan, 2016 Encounter for dental examination and cleaning without abnormal findings Z01.20 [facility] [id number] [place] [address] 93238- 8858 10 Jan, 2016 [facility] [id number] [place] [address] 51857- 9602 Jan, care, subsequent in third trimester Z34.83 and 36 weeks gestation of Z3A.36 [facility] [id number] [place] [address] 89232- 1546 03 Jan, 2016 screening for streptococcus B Z36 ; Third trimester at less than 36 weeks Z33.1 and 35 weeks gestation of Z3A.35 [facility] [id number] [place] [address] 58066- 4874 Dec, care, subsequent in third trimester Z34.83 and 34 weeks gestation of Z3A.34 [facility] [id number] [place] [address] 57560- 8920 18 Dec, 2015 [facility] [id number] [place] [address] 83585- 9743 Dec, Urine frequency R35.0 [facility] [id number] [place] [address] 07663- 7089 Dec, Urine frequency R35.0 [facility] [id number] [place] [address] 82575- 0910 Dec, Third trimester at less than 36 weeks Z33.1 ; 31 weeks gestation of Z3A.31 and Encounter for immunization Z23 [facility] [id number] [place] [address] 92957- 7104 Dec, [facility] [id number] [place] [address] 15384- 9453 Nov, Third trimester at less than 36 weeks Z33.1 ; Encounter for immunization Z23 and 29 weeks gestation of Z3A.29 [facility] [id number] [address]- [address] Nov, Second trimester Z33.1 and Diabetes mellitus screening Z13.1 [facility] [address] [address]- 0826 Oct, Second trimester Z33.1 and 23 weeks gestation of Z3A.23 [facility] [address] [address]- 7830 Oct, [facility] [address] [address]- 2462 Sep, [facility] [address] [place] [address] 23846- 2311 Sep, Second trimester Z33.1 ; History of long-term use of multiple prescription drugs Z92.29 ; , high-risk, second trimester O09.92 ; complicated by previous recurrent miscarriages, 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 and 18 weeks gestation of Z3A.18 [facility] [address] [address]- 1754 Aug, [facility] [address] [address]- 9238 Aug, , high-risk, second trimester O09.92 and 14 weeks gestation of Z3A.14 [facility] [address] [address]- 4308 July, complicated by previous recurrent miscarriages, 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 [facility] [address] [facility] [id number] [address]- 7[address] July, , high-risk, second trimester O09.92 ; Moderate persistent asthma without complication J45.40 and 16 weeks gestation of Z3A.16 [facility] [address] [id number] [place] [address] July [facility] [address] [facility] [id number] [place] [address] 23694- 0358 July, [facility] [address] [place] [address] 31803- 0725 July, Moderate depressed bipolar I disorder F31.32 ; Cannabis abuse F12.10 and First trimester Z33.1 [facility] [address] [place] [address] 28637- 7875 Jun, [facility] [id number] [place] [address] 98915- 2798 Jun, [facility] [id number] [place] [address] 78817- 1066 Jun, confirmed by positive urine test Z32.01 [facility] [id number] [place] [address] 03734- 0468 Jun, Moderate depressed bipolar I disorder F31.32 and Cannabis abuse F12.10 [facility] [id number] [place] [address] 00779- 6429 May, [facility] [id number] [place] [address] 04420- 6207 May, [facility] [id number] [place] [address] 07713- 2591 May, Moderate depressed bipolar I disorder F31.32 and Cannabis abuse F12.10 [facility] [address] [place] [address] 56667- 8790 May, Routine screening for STI (sexually transmitted infection) Z11.3 ; Moderate depressed bipolar I disorder F31.32 ; Unprotected sexual intercourse Z72.51 ; History of irregular menstrual bleeding Z87.42 ; Screening for malignant neoplasm of cervix Z12.4 and Vaginal discharge N89.8 [facility] [address] [place] [address] 85083- 0274 May, Moderate depressed bipolar I disorder F31.32 and Cannabis abuse F12.10 [facility] [address] [place] [address] 29188- 2026 Apr, History of long-term use of multiple prescription drugs Z92.29 [id number] [place] [address] 09095- 8442 Apr, Tobacco abuse Z72.0 ; High risk bisexual behavior Z72.53 ; History of long-term use of multiple prescription drugs Z92.29 and Family history of hyperlipidemia Z83.[address] 70288- 6891 Apr, [address] 45866- 7842 Jan, Posttraumatic stress disorder F43.10 ; Borderline personality disorder F60.3 and Bipolar disorder with severe depression F31.4 [place] [id number] [place] [address] 61429- 5975 Nov, Bipolar I disorder, most recent episode (or current) mixed, moderate 296.62 ; Posttraumatic stress disorder 309.81 and Nondependent cannabis abuse, unspecified 305.20 [place] [id number] [place] [address] 63761- 2154 09 Nov, 2014 Posttraumatic stress disorder 309.81 ; Attention deficit 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.00 and Bipolar I disorder, most recent episode (or current) mixed, moderate 296.62 [place] [id number] [place] [address] 83341- 3934 Oct, [id number] [place] [address] 14076- 3930 Sep, Family history of diabetes mellitus V18.0 ; Fatigue 780.79 ; Tobacco abuse 305.1 and Overweight 278.[address] 53214- 1845 Aug, [id number] [place] [address] 92420- 6611 Aug, [address] 87408- 7645 Aug, [facility] [address] [address]- 5067 Aug, Bipolar I disorder, most recent episode (or current) mixed, moderate 296.62 and Nondependent cannabis abuse, unspecified 305.20 [facility] [address] [address] July, Bipolar I disorder, most recent episode (or current) mixed, moderate 296.62 ; Posttraumatic stress disorder 309.81 ; Attention deficit 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.00 and Nondependent cannabis abuse, unspecified 305.20 [facility] [address] [place] [address] 226457- 2505 July, [facility] [id number] [place] [address] 95083- 9495 Jun, [facility] [id number] [place] [address] 31304- 3136 Jun, [facility] [address] [address]- 0871 May, [facility] [address] 8883 May, [facility] [address] [address]- 8892 May, [facility] [address] 5934 May, [facility] [address] [address]- 1836 May, [facility] [address] [address]- 9399 May, [facility] [address] [address]- 1166 Apr, [facility] [address] [address]- 1216 Apr, [facility] [address] [id number] [place] [address]- 4412 Mar, [facility] [place] [facility] [address] [id number] [place] [address]- 1243 Mar, [facility] [place] [facility] [address] [id number] [place] [address]- 7882 Mar, [facility] [place] [facility] [address] [id number] [place] [address]- 3056 Mar, [facility] [place] [facility] [address] [id number] [place] [address]- 0148 Mar, [facility] [place] [facility] [address] [id number] [place] [address]- 0394 Mar, [facility] [place] [facility] [address] [id number] [place] [address]- 6384 Feb, [facility] [place] [facility] [address] [id number] [place] [address]- 6262 Feb, [facility] [place] [facility] [address] [id number] [place] [address]- 9540 Feb, [facility] [place] [facility] [address] [id number] [place] [address]- 8503 Feb, [facility] [place] [facility] [address] [id number] [place] [address]- 3259 Feb, [facility] [place] [facility] [address] [id number] [place] [address]- 4721 Feb, [facility] [place] [facility] [address] [id number] [place] [address]- 0104 Feb, [facility] [place] [facility] [address] [id number] [place] [address]- 9733 Jan, [facility] [place] [facility] [address] [id number] [place] [address]- 4789 Jan, [facility] [place] [facility] [address] [id number] [place] [address]- 2080 Jan, [facility] [place] [facility] [address] [id number] [place] 2655 Jan, [facility] [place] [facility] [address] [id number] [place] [address]- 2210 Jan, [facility] [place] [facility] [address] [id number] [place] [address]- 2692 Jan, [facility] [place] [facility] [address] [id number] [place] [address]287 Dec, [facility] [place] [facility] [address] [id number] [place] [address]- 0832 Dec, [facility] [place] [facility] [address] [id number] [place] [address]- 4727 Dec, [facility] [place] [facility] [address] [id number] [place] [address]- 7225 Dec, [facility] [place] [facility] [address] [id number] [place] [address]- 5485 Dec, [facility] [place] [facility] [address] [id number] [place] [address]- 2974 Dec, [facility] [place] [facility] [address] [id number] [place] [address]- 5130 Dec, [facility] [place] [facility] [address] [id number] [place] [address]- 6421 Dec, [facility] [place] [facility] [address] [id number] [place] [address]- 2483 Nov, [facility] [place] [facility] [address] [id number] [place] [address]- 4361 Nov, [facility] [place] [facility] [address] [id number] [place] [address]- 6885 Oct, [facility] [place] [facility] [address] [id number] [place] [address]- 5641 Oct, [facility] [place] [facility] [address] [id number] [place] [address]- 7340 Oct, [facility] [address] [id number] [place] [address]- 4451 Aug, [facility] [place] [facility] [address] [id number] [place] [address]- 8389 Aug, [facility] [address] [id number] [place] [address]- 4299 Aug, [facility] [place] [facility] [address] [id number] [place] [address]- 2150 Aug, [facility] [place] [facility] [address] [id number] [place] [address]- 4739 July, [facility] [place] [facility] [address] [id number] [place] [address]- 2736 July, [facility] [place] [facility] [address] [id number] [place] [address]- 9484 July, [facility] [address] [id number] [place] [address]- 1405 July, [facility] [place] [facility] [address] [id number] [place] [address]- 9712 July, [facility] [address] [id number] [place] [address]- 0723 July, [facility] [place] [facility] [address] [id number] [place] [address]- 2013 Jun, [facility] [place] [facility] [address] [id number] [place] [address]- 3358 Jun, [facility] [place] [facility] [address] [id number] [place] [address]- 1915 Jun, [facility] [place] [facility] [address] [id number] [place] [address]- 1707 Jun, [facility] [place] [facility] [address] [id number] [place] 7592 Apr, [facility] [address] [id number] [place] [address]- 5005 14 Apr, 2013 [facility] [place] [facility] [address] [id number] [place] [address]- 2204 Mar, [facility] [address] [id number] [place] [address]- 2093 Mar, [facility] [place] [facility] [address] [id number] [place] [address]- 1054 Mar, [facility] [address] [id number] [place] [address]- 8066 Mar, [facility] [place] [facility] [address] [id number] [place] [address]- 3822 16 Feb, 2013 [facility] [place] [facility] [address] [id number] [place] [address]- 8490 16 Feb, 2013 [facility] [place] [facility] [address] [id number] [place] [address]- 6394 13 Feb, 2013 [facility] [place] [facility] [address] [id number] [place] [address]- 4282 Feb, [facility] [place] [facility] [address] [id number] [place] [address]- 0487 13 Feb, 2013 [facility] [place] [facility] [address] [id number] [place] [address]- 7299 13 Feb, 2013 [facility] [place] [facility] [address] [id number] [address]- 2341 11 Feb, 2013 [facility] [place] [facility] [address] [id number] [place] [address]- 0909 11 Feb, 2013 [facility] [place] [facility] [address] [id number] 6895 04 Feb, 2013 [facility] [place] [facility] [address] [id number] [place] 4779 03 Feb, 2013 [facility] [place] [facility] [address] [id number] [place] [address]- 8747 Feb, [facility] [place] [facility] [address] [id number] [place] [address]- 2285 Jan, [facility] [place] [facility] [address] [id number] [place] [address]- 1192 Jan, [facility] [place] [facility] [address] [id number] [place] [address]- 7825 Jan, [facility] [place] [facility] [address] [id number] [place] [address]- 5141 Jan, [facility] [place] [facility] [address] [id number] [place] [address]- 4847 Dec, [facility] [place] [facility] [address] [id number] [place] [address]- 9669 Dec, [facility] [place] [facility] [address] [id number] [place] [address]- 1621 16 Dec, 2012 [facility] [place] [facility] [address] [id number] [place] [address]- 8481 Dec, [facility] [place] [facility] [address] [id number] [place] [address]- 4235 Dec, [facility] [place] [facility] [address] [id number] [place] [address]- 3404 Dec, [facility] [place] [facility] [address] [id number] [place] [address] Oct, [facility] [place] [facility] [address] [id number] [place] [address] Oct, [facility] [place] [facility] [address] [id number] [place] [address] Oct, [facility] [place] [facility] [address] [id number] [id number] [address] Oct, [facility] [place] [facility] [address] [id number] [place] [address] Sep, [facility] [place] [facility] [address] [id number] [place] [address] Sep, [facility] [address] [id number] [place] [address] Aug, [facility] [address] [id number] [place] [address] July, [facility] [address] [id number] [place] [address] Jun, [facility] [address] [id number] [place] [address] Jun, [facility] [address] [id number] [place] [address] Jun, [facility] [address] [id number] [place] [address] May, [facility] [address] [id number] [place] [address] May, [facility] [address] [id number] [place] [address] May, [facility] [address] [id number] [place] [address] Apr, [facility] [address] [id number] [place] [address] Mar, [facility] [address] [id number] [place] [address] Mar, [facility] [address] [id number] [place] [address] Mar, [facility] [place] [facility] [address] [id number] [place] [address] Feb, [facility] [address] [id number] [place] [address] Feb, [facility] [address] [id number] [place] [address] Feb, [facility] [place] [facility] [address] [id number] [place] [address] Feb, [facility] [place] [facility] [address] [id number] [place] [address] Jan, [facility] [place] [facility] [address] [id number] [place] [address] Jan, [facility] [place] [facility] [address] [id number] [place] [address] Jan, [facility] [place] [facility] [address] [id number] [place] [address] Dec, [facility] [place] [facility] [address] [id number] [place] [address] Dec, [facility] [place] [facility] [address] [id number] [place] [address] Oct, [facility] [place] [facility] [address] [address] [id number] [place] [address] Sep, [facility] [place] [facility] [address] [id number] [place] [address] Sep, [facility] [place] [facility] [address] [id number] [place] [address] July, [facility] [place] [facility] [address] [id number] [place] [address] July, [facility] [place] [facility] [address] [id number] [address] Jun, [facility] [place] [facility] [address] [id number] [place] [address] Jun, [facility] [place] [facility] [address] [id number] [place] [address] Jun, [facility] [place] [facility] [address] [id number] [place] [address] Jun, [facility] [place] [facility] [id number] [address] Apr, [facility] [id number] [address] Apr, [facility] [id number] [address] Mar, [facility] [id number] [address] Mar, [facility] [id number] [address] Mar, [facility] [id number] [address] Feb, [facility] [id number] [address] Feb, [facility] [id number] [address] Feb, [facility] [id number] [address] Feb, [facility] [id number] [address] Feb, [facility] [id number] [address] Jan, [facility] [id number] [address] Mar, [facility] [address] [id number] [address] Mar, [facility] [address] [id number] [address] Jan, IMMUNIZATIONS No Known Immunizations SOCIAL HISTORY Never Assessed REASON FOR VISIT JEWEL andrade/ghanshyam-Therese Carty MA PLAN OF CARE Activity Details Follow Up 2 Months Reason:JEWEL f/u VITAL SIGNS Height 66 in 2016-11-09 Weight 291.2 lbs 2016-11-09 Heart Rate 86 bpm 2016-11-09 Respiratory Rate 20 2016-11-09 BMI 47.00 kg/m2 2016-11-09 Blood pressure systolic 128 mmHg 2016-11-09 Blood pressure diastolic 86 mmHg 2016-11-09 MEDICATIONS Medication Instructions Dosage Frequency Start Date End Date Duration Status Nexplanon 68 MG Subcutaneous Placed 05/12/2016 as directed May, 3 years Active BusPIRone HCl 15 MG Orally Three times a day 1 tablet 8h Active Flovent HFA 44 MCG/ACT Inhalation Twice a day 2 puffs 12h July, Active Lexapro 20 MG Orally Once a day 1 tablet 24h Active Albuterol Sulfate 90 mcg/actuation 2 puffs by Inhalation route every 6 hours as needed PRN cough or wheezing May, Active HydrOXYzine HCl 50 mg Orally at bedtime as needed for sleep 1/2 to 1 tablet Nov, 30 days Active RESULTS No Results PROCEDURES [...] treatment for suicidal tendencies, cutter, burner, biter ([place] x2, [place] x1, [place] x3) Hospitalization History Acute Migraines/Vomiting 2014 Hospitalization History Childbirth 01/31/2016
--- OUTSIDE RECORDS SUMMARY | 2018-06-01 07:30 | XMS REPORT ---
Author Author SAMIA CARLOS Organization [facility] Address Unknown Care Team Providers Care Aerosol Line Operator Name Role Phone TERRANCESAMIA Unavailable PROBLEMS Type Condition ICD9-CM Code [id number] Code Onset Dates Condition Status SNOMED Code Problem Moderate depressed bipolar I disorder F31.32 Active 23415657 Problem Bipolar disorder, current episode mixed, moderate F31.62 Active 634380804 Problem Moderate persistent asthma without complication J45.40 Active 342290052 Problem Family history of hyperlipidemia Z83.49 Active 721172195 Problem History of long-term use of multiple prescription drugs Z92.29 Active 337422629 Problem High risk bisexual behavior Z72.53 Active 120239759 Problem Tobacco abuse Z72.0 Active 19197064 Problem BUTCH (generalized anxiety disorder) F41.1 Active 19189948 Problem 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 74955903 Problem Schizophrenia F20.9 Active 38092403 Problem Bipolar disorder F31.9 Active 63519516 Problem Borderline personality disorder F60.3 Active 53444984 Problem Cannabis use disorder, mild, abuse F12.10 Active 80021596 ALLERGIES Substance Reaction Event Type Date Status Viibryd rash Drug Allergy Feb, Active SOCIAL HISTORY No smoking Hx information available PLAN OF CARE Activity Details Follow Up 6 Weeks Reason: VITAL SIGNS Height 66 in 2016-03-03 Weight 257.0 lbs 2016-03-03 Heart Rate 80 bpm 2016-03-03 Respiratory Rate 18 2016-03-03 BMI 41.48 kg/m2 2016-03-03 Blood pressure systolic 100 mmHg 2016-03-03 Blood pressure diastolic 71 mmHg 2016-03-03 MEDICATIONS Medication Instructions Dosage Frequency Start Date End Date Duration Status Lexapro 10 MG Orally Once a day 1 tablet 24h Feb, 30 day(s) Active BusPIRone HCl 15 MG Orally Three times a day 1 tablet 8h Feb, 30 days Active RESULTS No Results PROCEDURES Procedure Date Ordered Related Diagnosis Body Site MH Office Visit, Est Pt., Level 3 Mar 03, 2016 IMMUNIZATIONS No Known Immunizations
--- OUTSIDE RECORDS SUMMARY | 2018-06-01 07:31 | XMS REPORT ---
Author Author HARRIS MAGUE Organization [facility] Address [address] [place] [address] Care Team Providers Care Industrial Analyst Name Role Phone HARRISDAYAN HERNANDEZHANY Unavailable PROBLEMS Type Condition ICD9-CM Code [id number] Code Onset Dates Condition Status SNOMED Code Problem Moderate depressed bipolar I disorder F31.32 Active 24037074 Problem Bipolar disorder, current episode mixed, moderate F31.62 Active 485469156 Problem Moderate persistent asthma without complication J45.40 Active 201062633 Problem Family history of hyperlipidemia Z83.49 Active 451734086 Problem History of long-term use of multiple prescription drugs Z92.29 Active 332618706 Problem Tobacco abuse Z72.0 Active 46963914 Problem High risk bisexual behavior Z72.53 Active 776224183 Problem Borderline personality disorder F60.3 Active 93134863 Problem BUTCH (generalized anxiety disorder) F41.1 Active 02359685 Problem Schizophrenia F20.9 Active 44881917 Problem Bipolar disorder F31.9 Active 90231360 Problem Cannabis use disorder, mild, abuse F12.10 Active 55075819 Problem 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 62712331 ALLERGIES Substance Reaction Event Type Date Status Viibryd rash Drug Allergy May, Active SOCIAL HISTORY Never Assessed PLAN OF CARE Activity Details Follow Up prn Reason: VITAL SIGNS Height 66 in 2016-05-12 Weight 252.3 lbs 2016-05-12 Temperature 98.5 degrees Fahrenheit 2016-05-12 Heart Rate 88 bpm 2016-05-12 Respiratory Rate 20 2016-05-12 BMI 40.72 kg/m2 2016-05-12 Blood pressure systolic 118 mmHg 2016-05-12 Blood pressure diastolic 86 mmHg 2016-05-12 MEDICATIONS Medication Instructions Dosage Frequency Start Date End Date Duration Status BusPIRone HCl 15 MG Orally Three times a day 1 tablet 8h Feb, 30 days Active Nexplanon 68 MG Subcutaneous Placed 05/12/2016 as directed May, 3 years Active Flovent HFA 44 MCG/ACT Inhalation Twice a day 2 puffs 12h July, Active Lexapro 10 MG Orally Once a day 1 tablet 24h Feb, 30 days Active Albuterol Sulfate 90 mcg/actuation 2 puffs by Inhalation route every 6 hours as needed PRN cough or wheezing May, Active RESULTS Name Result Date Reference Range TEST, URINE (IN HOUSE) 2016-05-12 RESULTS Negative Lot # [id number] Control + Exp date PROCEDURES Procedure Date Ordered Result Body Site URINE TEST May 12, 2016 INSERT DRUG IMPLANT DEVICE May 12, 2016 ETONOGESTREL IMPLANT SYSTEM May 12, 2016 IMMUNIZATIONS No Known Immunizations MEDICAL (GENERAL) HISTORY [...] treatment for suicidal tendencies, cutter, burner, biter ([place] x2, [place] x1, [place] x3) Hospitalization History Acute Migraines/Vomiting 2014 Hospitalization History Childbirth 01/31/2016
--- OUTSIDE RECORDS SUMMARY | 2018-06-01 07:31 | XMS REPORT ---
Author Author SUNNY RANGEL Organization [facility] Address [address] [place] [address] Care Team Providers Care Cop Winder Name Role Phone SUNNY RANGEL Unavailable PROBLEMS Type Condition ICD9-CM Code CMM03-OQ Code Onset Dates Condition Status SNOMED Code Problem Cannabis use disorder, mild, abuse F12.10 Active 76887378 Problem Borderline personality disorder F60.3 Active 28257711 Problem BUTCH (generalized anxiety disorder) F41.1 Active 90304194 Problem Other chronic pain G89.29 Active 68300740 Problem Family history of hyperlipidemia Z83.49 Active 166765776 Problem Lumbago with sciatica, right side M54.41 Active [id number] Problem Body mass index (BMI) of 45.0-49.9 in adult Z68.42 Active 264683244 Problem 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 23548514 Problem Lumbago with sciatica, left side M54.42 Active 980279289 Problem Morbid (severe) obesity due to excess calories E66.01 Active 347716873 Problem High risk bisexual behavior Z72.53 Active 091326768 Problem Moderate depressed bipolar I disorder F31.32 Active 74463364 Problem History of long-term use of multiple prescription drugs Z92.29 Active 252555502 Problem Tobacco abuse Z72.0 Active 46489509 Problem Bipolar disorder F31.9 Active 02920548 Problem Schizophrenia F20.9 Active 38403109 Problem Moderate persistent asthma without complication J45.40 Active 777157151 Problem Moderate episode of recurrent major depressive disorder F33.1 Active 443795787 Problem Bipolar disorder, current episode mixed, moderate F31.62 Active 222020207 Problem Body mass index (BMI) of 40.0-44.9 in adult Z68.41 Active 979472175 ALLERGIES No Information ENCOUNTERS Encounter Location Date Diagnosis [facility] [address] [facility] [id number] [address] July, [facility] [address] [address] Jun, [facility] [address] [address] Jun, [facility] [address], [place] [address] May, [facility] [address] [place] [id number] [place] [address] 160106- 3261 Mar, [facility] [id number] [place] [address] 72518- 0449 Mar, [facility] [address] [address] Mar, BUTCH (generalized anxiety disorder) F41.1 ; 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 ; Borderline personality disorder F60.3 ; Cannabis use disorder, mild, abuse F12.10 and BMI 45.0-49.9, adult Z68.42 [place] [address] [place] [address] 65075- 8108 Feb, BMI 45.0-49.9, adult Z68.42 ; Lumbago with sciatica, left side M54.42 ; Lumbago with sciatica, right side M54.41 and Other chronic pain G89.29 [place] [address], [place] [address] Feb, BUTCH (generalized anxiety disorder) F41.1 ; 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 ; Borderline personality disorder F60.3 and Cannabis use disorder, mild, abuse F12.10 [place] [address] [address] Jan, BUTCH (generalized anxiety disorder) F41.1 ; 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 ; Borderline personality disorder F60.3 and Cannabis use disorder, mild, abuse F12.10 [place] [address] [place] [address] 46828- 4267 Dec, Cold intolerance R68.89 ; Morbid (severe) obesity due to excess calories E66.01 ; Screening for lipid disorders Z13.220 and Screening for diabetes mellitus (DM) Z13.1 [place] [id number] [place] [address] 71852- 1625 Dec, Body mass index (BMI) of 45.0-49.9 in adult Z68.42 ; Morbid (severe) obesity due to excess calories E66.01 ; Screening for diabetes mellitus (DM) Z13.1 ; Screening for lipid disorders Z13.220 and Cold intolerance R68.89 [place] [id number] [place] [address] 96887- 5516 Nov, BUTCH (generalized anxiety disorder) F41.1 ; 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 ; Borderline personality disorder F60.3 and Cannabis use disorder, mild, abuse F12.10 [place] [id number] [place] [address] 71309- 9506 Oct, [place] [id number] [place] [address] 94263- 3695 Oct, BUTCH (generalized anxiety disorder) F41.1 ; 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 ; Borderline personality disorder F60.3 and Cannabis use disorder, mild, abuse F12.10 [place] [id number] [place] [address] 85523- 8957 Sep, Encounter for test, result unknown Z32.00 [place] [id number] [place] [address] 49370- 2720 15 Aug, 2016 Low back pain M54.5 ; Dermatitis L30.9 ; Moderate episode of recurrent major depressive disorder F33.1 ; Morbid (severe) obesity due to excess calories E66.01 ; Body mass index (BMI) of 40.0-44.9 in adult Z68.41 and BMI 40.0-44.9, adult Z68.41 [place] [address] [place] [address] 02132- 0672 Aug, [facility] [id number] [place] [address] 58993- 3383 Aug, [facility] [id number] [place] [address] 96147- 2296 Aug, Moderate depressed bipolar I disorder F31.32 ; Schizophrenia F20.9 and Bipolar disorder, current episode mixed, moderate F31.62 [place] [id number] [place] [address] 91981- 9247 May, Nexplanon insertion Z30.017 [place] [id number] [place] [address] 39295- 7570 Apr, History of long-term use of multiple prescription drugs Z92.29 ; Cannabis abuse F12.10 ; Moderate depressed bipolar I disorder F31.32 and Bipolar disorder, current episode mixed, moderate F31.62 [place] [id number] [place] [address] 49510- 3272 Mar, Cannabis abuse F12.10 and Bipolar disorder F31.9 [place] [id number] [place] [address] 41836- 5481 Mar, [place] [id number] [place] [address] 58799- 1845 Mar, exam Z39.2 [place] [id number] [place] [address] 76626- 5081 Feb, Bipolar disorder, current episode mixed, moderate F31.62 [place] [id number] [place] [address] 25859- 7780 Feb, [place] [id number] [place] [address] 69587- 4934 Jan, [place] [address] [address] [id number] [place] [address] 56753- 5213 Jan, [facility] [address], [place] [address]- 2775 17 Jan, 2016 care, subsequent in third trimester Z34.83 and 37 weeks gestation of Z3A.37 [place] [address] [place] [address] 61913- 5329 17 Jan, 2016 Encounter for dental examination and cleaning without abnormal findings Z01.20 [place] [address] [address] [id number] [place] [address] 50311- 6049 10 Jan, 2016 [place] [address] [address] [id number] [place] [address] 34078- 1710 Jan, care, subsequent in third trimester Z34.83 and 36 weeks gestation of Z3A.36 [place] [address] [place] [address] [id number] [place] [address] 95642- 6364 Jan, Third trimester at less than 36 weeks Z33.1 ; screening for streptococcus B Z36 and 35 weeks gestation of Z3A.35 [place] [address] [address] [id number] [place] [address] 33772- 5996 Dec, care, subsequent in third trimester Z34.83 and 34 weeks gestation of Z3A.34 [place] [address] [place] [address] 71655- 7015 Dec, [place] [address] [place] [address] 63491- 3433 Dec, Urine frequency R35.0 [place] [address] [address] [id number] [place] [address] 55098- 5515 Dec, Urine frequency R35.0 [place] [address] [place] [address] [id number] [place] [address] 21105- 6349 Dec, Third trimester at less than 36 weeks Z33.1 ; 31 weeks gestation of Z3A.31 and Encounter for immunization Z23 [address] [place] [address] 52207- 9600 Dec, [place] [address] [address]- 3325 Nov, Third trimester at less than 36 weeks Z33.1 ; Encounter for immunization Z23 and 29 weeks gestation of Z3A.29 [place] [address], [place] [address]- 9897 Nov, Second trimester Z33.1 and Diabetes mellitus screening Z13.1 [place] [id number] [place] [address] 26909- 9312 Oct, Second trimester Z33.1 and 23 weeks gestation of Z3A.23 [place] [id number] [place] [address] 23593- 1848 Oct, [place] [address] [place] [address] [id number] [place] [address] 10680- 2669 Sep, [place] [address] [address] [id number] [place] [address] 38327- 1994 Sep, Second trimester Z33.1 ; 18 weeks gestation of Z3A.18 ; History of long-term use of multiple prescription drugs Z92.29 ; complicated by previous recurrent miscarriages, 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 and , high-risk, second trimester O09.92 [place] [address] [address]- 6720 Aug, [place] [address] [place] [id number] [place] [address] 17458- 8263 Aug, , high-risk, second trimester O09.92 and 14 weeks gestation of Z3A.14 [address], [place] [address]- 3147 July, complicated by previous recurrent miscarriages, 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 [place] [address], [place] [address] July, , high-risk, second trimester O09.92 ; Moderate persistent asthma without complication J45.40 and 16 weeks gestation of Z3A.16 [facility] [address] [place], [place] [address] [id number] [place] [address] July [facility] [address], [place] [address]- 8398 July, [facility] [address], [place] [address]- 8942 July, Moderate depressed bipolar I disorder F31.32 ; Cannabis abuse F12.10 and First trimester Z33.1 [facility] [address], [place] [address]- 5878 Jun, [facility] [address] [place] [address] 99297- 2388 Jun, [facility] [address] [place] [address] 86003- 1275 Jun, confirmed by positive urine test Z32.01 [place] [address], [place] [address]- 7197 Jun, Moderate depressed bipolar I disorder F31.32 and Cannabis abuse F12.10 [place] [address], [place] [address]- 6381 May, [facility] [address], [place] [address]- 6700 May, [place] [address] [place] [id number] [address]- 9965 May, Moderate depressed bipolar I disorder F31.32 and Cannabis abuse F12.10 [place] [address] [facility] [id number] [address] 3719 May, Routine screening for STI (sexually transmitted infection) Z11.3 ; Moderate depressed bipolar I disorder F31.32 ; Unprotected sexual intercourse Z72.51 ; History of irregular menstrual bleeding Z87.42 ; Screening for malignant neoplasm of cervix Z12.4 and Vaginal discharge N89.8 [place] [address], [place] [address]- 4316 May, Moderate depressed bipolar I disorder F31.32 and Cannabis abuse F12.10 [place] [id number] [place] [address] 89461- 0595 Apr, History of long-term use of multiple prescription drugs Z92.29 [place] [address] [place] [address] [place] [address] 32010- 4642 Apr, Tobacco abuse Z72.0 ; High risk bisexual behavior Z72.53 ; History of long-term use of multiple prescription drugs Z92.29 and Family history of hyperlipidemia Z83.49 [place] [id number] [place] [address] 52173- 3555 Apr, [address] 15966- 8083 Jan, Posttraumatic stress disorder F43.10 ; Borderline personality disorder F60.3 and Bipolar disorder with severe depression F31.[address] 17038- 0678 Nov, Bipolar I disorder, most recent episode (or current) mixed, moderate 296.62 ; Posttraumatic stress disorder 309.81 and Nondependent cannabis abuse, unspecified 305.20 [place] [id number] [place] [address] 38366- 4472 09 Nov, 2014 Posttraumatic stress disorder 309.81 ; Attention deficit 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.00 and Bipolar I disorder, most recent episode (or current) mixed, moderate 296.62 [place] [address] [place] [address] [place] [address] 59439- 3270 Oct, [address] 99225- 8999 Sep, Family history of diabetes mellitus V18.0 ; Fatigue 780.79 ; Tobacco abuse 305.1 and Overweight 278.02 [place] [id number] [place] [address] 74919- 2388 Aug, [address] [place] [address]- 0221 Aug, [facility] [id number] [place] [address] 04624- 9770 Aug, [facility] [id number] [place] [address] 974248- 4833 Aug, Bipolar I disorder, most recent episode (or current) mixed, moderate 296.62 and Nondependent cannabis abuse, unspecified 305.20 [facility] [address] [address] [place] [address] 34629- 7236 July, Bipolar I disorder, most recent episode (or current) mixed, moderate 296.62 ; Posttraumatic stress disorder 309.81 ; Attention deficit 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.00 and Nondependent cannabis abuse, unspecified 305.20 [facility] [id number] [place] [address] 76957- 1294 July, [facility] [id number] [place] [address] 42156- 9788 Jun, [facility] [id number] [place] [address] 82173- 9800 Jun, [facility] [id number] [place] [address] 13015- 1949 May, [facility] [id number] [place] [address] 86907- 3119 May, [facility] [id number] [place] [address] 71231- 5439 May, [facility] [id number] [place] [address] 59276- 4450 May, [facility] [id number] [place] [address] 27712839- 8849 May, [facility] [id number] [place] [address] 41825- 7755 May, [facility] [id number] [place] [address] 78620- 2546 Apr, [facility] [place] [facility] [address] [id number] [place] [address]- 6433 Apr, [facility] [place] [facility] [address] [id number] [place] [address]- 6470 Mar, [facility] [place] [facility] [address] [id number] [place] [address]- 5370 Mar, [facility] [place] [facility] [address] [id number] [place] [address]- 6504 Mar, [facility] [place] [facility] [address] [id number] [place] [address]- 0735 Mar, [facility] [place] [facility] [address] [id number] [place] [address]- 2369 Mar, [facility] [place] [facility] [address] [id number] [place] [address]- 9178 Mar, [facility] [place] [facility] [address] [id number] [place] [address]- 3866 Feb, [facility] [place] [facility] [address] [id number] [place] [address]- 4341 Feb, [facility] [place] [facility] [address] [id number] [place] [address]- 8233 Feb, [facility] [place] [facility] [address] [id number] [place] [address]- 2552 Feb, [facility] [place] [facility] [address] [id number] [place] [address]- 8298 Feb, [facility] [place] [facility] [address] [id number] [place] 0918 Feb, [facility] [place] [facility] [address] [id number] [place] 4295 Feb, [facility] [place] [facility] [address] [id number] [place] [address]- 4689 Jan, [facility] [place] [facility] [address] [id number] [place] [address]- 9984 Jan, [facility] [place] [facility] [address] [id number] [place] [address]- 3412 Jan, [facility] [place] [facility] [address] [id number] [place] [address]- 3126 Jan, [facility] [place] [facility] [address] [id number] [place] [address]- 0571 Jan, [facility] [place] [facility] [address] [id number] [place] [address]- 2005 Jan, [facility] [place] [facility] [address] [id number] [place] [address]- 3431 Dec, [facility] [place] [facility] [address] [id number] [place] 7598 Dec, [facility] [place] [facility] [address] [id number] [place] [address]- 5386 Dec, [facility] [place] [facility] [address] [id number] [place] [address]- 2211 Dec, [facility] [place] [facility] [address] [id number] [place] [address]- 8773 Dec, [facility] [place] [facility] [address] [id number] [place] 9201 Dec, [facility] [place] [facility] [address] [id number] [place] [address]- 5514 Dec, [facility] [place] [facility] [address] [id number] [place] [address]- 8769 Dec, [facility] [place] [facility] [address] [id number] [place] [address]- 7304 Nov, [facility] [place] [facility] [address] [id number] [place] [address] 2546 Nov, [facility] [place] [facility] [address] [id number] [place] [address]- 9303 Oct, [facility] [place] [facility] [address] [id number] [place] [address]- 5231 Oct, [facility] [place] [facility] [address] [id number] [place] [address]- 2572 Oct, [facility] [place] [facility] [address] [id number] [place] [address]- 2330 Aug, [facility] [place] [facility] [address] [id number] [place] [address]- 9803 Aug, [facility] [place] [facility] [address] [id number] [place] [address]- 5202 Aug, [facility] [place] [facility] [address] [id number] [place] [address]- 5966 Aug, [facility] [place] [facility] [address] [id number] [place] [address]- 6535 July, [facility] [place] [facility] [address] [id number] [place] [address]- 2392 July, [facility] [place] [facility] [address] [id number] [place] [address]- 3936 July, [facility] [place] [facility] [address] [id number] [place] [address]- 7083 July, [facility] [place] [facility] [address] [id number] [place] [address]- 8650 July, [facility] [place] [facility] [address] [id number] [place] [address]- 4587 July, [facility] [place] [facility] [address] [id number] [place] [address]- 1864 Jun, [facility] [place] [facility] [address] [id number] [place] [address]- 9496 Jun, [facility] [place] [facility] [address] [id number] [place] [address]- 3556 Jun, [facility] [place] [facility] [address] [id number] [place] [address]- 7765 14 Jun, 2013 [facility] [place] [facility] [address] [id number] [place] [address]- 9789 14 Apr, 2013 [facility] [place] [facility] [address] [id number] [place] 0716 14 Apr, 2013 [facility] [place] [facility] [address] [id number] [place] [address]- 6040 Mar, [facility] [place] [facility] [address] [id number] [place] [address]- 9488 Mar, [facility] [place] [facility] [address] [id number] [place] [address]- 6721 Mar, [facility] [place] [facility] [address] [id number] [place] [address]- 1279 Mar, [facility] [place] [facility] [address] [id number] [place] [address]- 8567 16 Feb, 2013 [facility] [place] [facility] [address] [id number] [place] [address]- 9367 16 Feb, 2013 [facility] [place] [facility] [address] [id number] [place] [address]- 3729 13 Feb, 2013 [facility] [place] [facility] [address] [facility] [id number] [place] [address]- 7043 13 Feb, 2013 [facility] [place] [facility] [address] [id number] [place] [address]- 1388 13 Feb, 2013 [facility] [place] [facility] [address] [id number] [place] [address]- 4240 13 Feb, 2013 [facility] [place] [facility] [address] [id number] [place]- 1082 11 Feb, 2013 [facility] [place] [facility] [address] [id number] [place] [address]- 4668 11 Feb, 2013 [facility] [place] [facility] [address] [id number] [place] [address]- 0215 Feb, [facility] [place] [facility] [address] [id number] [place] [address]- 2751 Feb, [facility] [place] [facility] [address] [id number] [place] [address]- 3059 Feb, [facility] [place] [facility] [address] [id number] [place] [address]- 9357 Jan, [facility] [place] [facility] [address] [id number] [place] [address]- 2532 Jan, [facility] [place] [facility] [address] [id number] [place] [address]- 6727 Jan, [facility] [place] [facility] [address] [id number] [place] [address]- 2492 Jan, [facility] [place] [facility] [address] [id number] [place] [address]- 6218 Dec, [facility] [place] [facility] [address] [id number] [place] [address] Dec, [facility] [place] [facility] [address] [id number] [place] [address] Dec, [facility] [place] [facility] [address] [id number] [place] [address] Dec, [facility] [place] [facility] [address] [id number] [place] [address] Dec, [facility] [place] [facility] [address] [id number] [place] [address] Dec, [facility] [place] [facility] [address] [id number] [place] [address] Oct, [facility] [place] [facility] [address] [id number] [place] [address] Oct, [facility] [place] [facility] [address] [id number] [place] [address] Oct, [facility] [place] [facility] [address] [id number] [place] [address] Oct, [facility] [address] [id number] [place] [address] Sep, [facility] [address] [id number] [place] [address] Sep, [facility] [address] [id number] [place] [address] Aug, [facility] [address] [id number] [place] [address] July, [facility] [address] [id number] [place] [address] Jun, [facility] [address] [id number] [place] [address] Jun, [facility] [address] [id number] [place] [address] Jun, [facility] [address] [id number] [place] [address] May, [facility] [address] [id number] [place] [address] May, [facility] [place] [facility] [address] [id number] [place] [address] May, [facility] [address] [id number] [place] [address] Apr, [facility] [place] [facility] [address] [id number] [place] [address] Mar, [facility] [place] [facility] [address] [id number] [place] [address] Mar, [facility] [place] [facility] [address] [id number] [place] [address] Mar, [facility] [place] [facility] [address] [id number] [place] [address]- [address] Feb, [facility] [place] [facility] [address] [id number] [place] [address] Feb, [facility] [place] [facility] [address] [id number] [place] [address] Feb, [facility] [place] [facility] [address] [id number] [place] [address] Feb, [facility] [place] [facility] [address] [id number] [place] [address] Jan, [facility] [place] [facility] [address] [id number] [place] [address] Jan, [facility] [place] [facility] [address] [id number] [place] [address] Jan, [facility] [place] [facility] [address] [id number] [place] [address] Dec, [facility] [place] [facility] [address] [id number] [place] [address] Dec, [facility] [address] [id number] [place] [address] Oct, [facility] [place] [facility] [address] [id number] [place] [address] Sep, [facility] [place] [facility] [address] [id number] [place] [address] Sep, [facility] [place] [facility] [address] [id number] [place] [address] July, [facility] [place] [facility] [address] [id number] [place] [address] July, [facility] [place] [facility] [address] [id number] [place] [address] Jun, [facility] [place] [facility] [address] [id number] [place] [address] Jun, [facility] [place] [facility] [address] [id number] [place] [address] Jun, [facility] [address] [facility] [id number] [address] Jun, [facility] [address] [facility] [id number], [place] [address] Apr, [facility] [id number] [address] Apr, [facility] [id number], [place] [address] Mar, [facility] [address] [facility] [id number], [place] [address] Mar, [facility] [id number], [place] [address] Mar, [facility] [id number], [place] [address] Feb, [facility] [id number], [place] [address] Feb, [facility] [id number], [place] [address] Feb, [facility] [id number], [place] [address] Feb, [facility] [id number], [place] [address] Feb, [facility] [id number], [place] [address] Jan, [facility] [id number] [address] Mar, [facility] [id number] [address] Mar, [facility] [id number] [address] [address] Jan, IMMUNIZATIONS No Known Immunizations SOCIAL HISTORY Never Assessed REASON FOR VISIT test (walk-in) PLAN OF CARE VITAL SIGNS MEDICATIONS Unknown Medications RESULTS Name Result Date Reference Range TEST, URINE (IN HOUSE) 2016-09-20 RESULTS Negative Lot # [id number] Control + Exp date 08/2017 PROCEDURES Procedure Date Ordered Result Body Site URINE TEST September 20, 2016 INSTRUCTIONS MEDICATIONS ADMINISTERED No Known Medications MEDICAL [...] treatment for suicidal tendencies, cutter, burner, biter ([place] x2, [place] x1, [place] x3) Hospitalization History Acute Migraines/Vomiting 2014 Hospitalization History Childbirth 01/31/2016
--- OUTSIDE RECORDS SUMMARY | 2018-06-01 07:32 | XMS REPORT ---
Author Author SUNNY RANGEL Organization [facility] Address [address] [place] [address] Care Team Providers Care Inside Technical Sales Representative Name Role Phone SUNNY RANGEL Unavailable PROBLEMS Type Condition ICD9-CM Code [id number] Code Onset Dates Condition Status SNOMED Code Problem Cannabis use disorder, mild, abuse F12.10 Active 23835939 Problem Borderline personality disorder F60.3 Active 26407877 Problem BUTCH (generalized anxiety disorder) F41.1 Active 37767287 Problem Other chronic pain G89.29 Active 91248007 Problem Family history of hyperlipidemia Z83.49 Active 212434350 Problem Lumbago with sciatica, right side M54.41 Active 928501329570756 Problem Body mass index (BMI) of 45.0-49.9 in adult Z68.42 Active 701550051 Problem 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 25998673 Problem Lumbago with sciatica, left side M54.42 Active 105838539 Problem Morbid (severe) obesity due to excess calories E66.01 Active 278508834 Problem High risk bisexual behavior Z72.53 Active 944900343 Problem Moderate depressed bipolar I disorder F31.32 Active 10701415 Problem History of long-term use of multiple prescription drugs Z92.29 Active 784084665 Problem Tobacco abuse Z72.0 Active 46433731 Problem Bipolar disorder F31.9 Active 41197392 Problem Schizophrenia F20.9 Active 79269076 Problem Moderate persistent asthma without complication J45.40 Active 811591340 Problem Moderate episode of recurrent major depressive disorder F33.1 Active 431615954 Problem Bipolar disorder, current episode mixed, moderate F31.62 Active 701866187 Problem Body mass index (BMI) of 40.0-44.9 in adult Z68.41 Active [id number] ALLERGIES No Information ENCOUNTERS Encounter Location Date Diagnosis [facility] [address] [facility] [id number] [address] July, [place] [id number] [place] [address] 76054- 2601 May, [place] [id number] [place] [address] 80426- 0440 Mar, [place] [address] [place] [id number] [place] [address] 41488- 4849 Mar, [place] [address] [place] [id number] [place] [address] 55362- 0422 Mar, BUTCH (generalized anxiety disorder) F41.1 ; 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 ; Borderline personality disorder F60.3 ; Cannabis use disorder, mild, abuse F12.10 and BMI 45.0-49.9, adult Z68.42 [place] [id number] [place] [address] 62598- 0989 Feb, BMI 45.0-49.9, adult Z68.42 ; Lumbago with sciatica, left side M54.42 ; Lumbago with sciatica, right side M54.41 and Other chronic pain G89.29 [place] [id number] [place] [address] 35054- 8704 Feb, BUTCH (generalized anxiety disorder) F41.1 ; 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 ; Borderline personality disorder F60.3 and Cannabis use disorder, mild, abuse F12.10 [place] [address] [place] [address] 75034- 7885 Jan, BUTCH (generalized anxiety disorder) F41.1 ; 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 ; Borderline personality disorder F60.3 and Cannabis use disorder, mild, abuse F12.10 [place] [address] [place] [address] 42747- 1885 Dec, Cold intolerance R68.89 ; Morbid (severe) obesity due to excess calories E66.01 ; Screening for lipid disorders Z13.220 and Screening for diabetes mellitus (DM) Z13.1 [place] [id number] [place] [address] 88078- 3132 26 Dec, 2016 Body mass index (BMI) of 45.0-49.9 in adult Z68.42 ; Morbid (severe) obesity due to excess calories E66.01 ; Screening for diabetes mellitus (DM) Z13.1 ; Screening for lipid disorders Z13.220 and Cold intolerance R68.[address] [address]- [address] 05 Nov, 2016 BUTCH (generalized anxiety disorder) F41.1 ; 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 ; Borderline personality disorder F60.3 and Cannabis use disorder, mild, abuse F12.10 [place] [id number] [place] [address] 09250- 9489 Oct, [address] 82110- 4292 Oct, BUTCH (generalized anxiety disorder) F41.1 ; 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 ; Borderline personality disorder F60.3 and Cannabis use disorder, mild, abuse F12.10 [place] [id number] [place] [address] 00292- 2825 Sep, Encounter for test, result unknown Z32.00 [place] [id number] [place] [address] 96439- 2735 Aug, Low back pain M54.5 ; Dermatitis L30.9 ; Moderate episode of recurrent major depressive disorder F33.1 ; Morbid (severe) obesity due to excess calories E66.01 ; Body mass index (BMI) of 40.0-44.9 in adult Z68.41 and BMI 40.0-44.9, adult Z68.41 [place] [id number] [place] [address] 28015- 1729 13 Aug, 2016 [place] [id number] [place] [address] 70987- 1017 Aug, [place] [address] [place] [id number] [place] [address] 69283- 1512 Aug, Moderate depressed bipolar I disorder F31.32 ; Schizophrenia F20.9 and Bipolar disorder, current episode mixed, moderate F31.62 [place] [address] [place] [id number] [place] [address] 27768- 7677 May, Nexplanon insertion Z30.017 [place] [address] 13571- 2628 Apr, History of long-term use of multiple prescription drugs Z92.29 ; Cannabis abuse F12.10 ; Moderate depressed bipolar I disorder F31.32 and Bipolar disorder, current episode mixed, moderate F31.62 [place] [address] [place] [id number] [place] [address] 15180- 0464 Mar, Cannabis abuse F12.10 and Bipolar disorder F31.9 [place] [address] 99050- 1394 Mar, [place] [address] [place] [id number] [place] [address] 48128- 4838 Mar, exam Z39.2 [place] [address] 23497- 2404 Feb, Bipolar disorder, current episode mixed, moderate F31.62 [place] [address] [place] [id number] [place] [address] 25561- 7793 Feb, [place] [address] 98839- 6848 Jan, [place] [address] [place] [id number] [place] [address] 84969- 3041 Jan, [place] [address] [place] [id number] [place] [address] 46578- 0761 Jan, care, subsequent in third trimester Z34.83 and 37 weeks gestation of Z3A.37 [place] [address] 15039- 9649 17 Jan, 2016 Encounter for dental examination and cleaning without abnormal findings Z01.20 [place] [address] [place] [id number] [place] [address] 92264- 5419 10 Jan, 2016 [place] [address] [place] [id number] [place] [address] 65582- 1734 10 Jan, 2016 care, subsequent in third trimester Z34.83 and 36 weeks gestation of Z3A.36 [place] [address] [place] [id number] [place] [address] 91660- 8688 03 Jan, 2016 screening for streptococcus B Z36 ; Third trimester at less than 36 weeks Z33.1 and 35 weeks gestation of Z3A.35 [place] [address] [place] [id number] [place] [address] 23598- 2254 21 Dec, 2015 care, subsequent in third trimester Z34.83 and 34 weeks gestation of Z3A.34 [place] [address] [place] [id number] [place] [address] 83532- 7001 Dec, [place] [address] [place] [id number] [place] [address] 84955- 3014 Dec, Urine frequency R35.0 [place] [address] [place] [id number] [place] [address] 63770- 0278 Dec, Urine frequency R35.0 [place] [address] [place] [id number] [place] [address] 22221- 0617 06 Dec, 2015 Third trimester at less than 36 weeks Z33.1 ; 31 weeks gestation of Z3A.31 and Encounter for immunization Z23 [place] [id number] [place] [address] 75791- 3780 Dec, [place] [address] [place] [id number] [place] [address] 84060- 0818 Nov, Third trimester at less than 36 weeks Z33.1 ; Encounter for immunization Z23 and 29 weeks gestation of Z3A.29 [place] [address]- 4707 Nov, Second trimester Z33.1 and Diabetes mellitus screening Z13.1 [place] [address] [address]- 7939 Oct, Second trimester Z33.1 and 23 weeks gestation of Z3A.23 [place] [address] [address]- 4791 Oct, [place] [address] [address]- 2569 Sep, [place] [id number] [place] [address] 37362- 8322 Sep, Second trimester Z33.1 ; History of long-term use of multiple prescription drugs Z92.29 ; , high-risk, second trimester O09.92 ; complicated by previous recurrent miscarriages, 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 and 18 weeks gestation of Z3A.18 [place] [address] [address]- 7736 Aug, [place] [address] [address]- 5130 Aug, , high-risk, second trimester O09.92 and 14 weeks gestation of Z3A.14 [place] [address] [place] [id number] [address]- 1098 July, complicated by previous recurrent miscarriages, 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 [place] [address] [place] [id number] [address]- 8389 July, , high-risk, second trimester O09.92 ; Moderate persistent asthma without complication J45.40 and 16 weeks gestation of Z3A.16 [facility] [address] [id number] JULIET PETERS [address] July [place] [address] [facility] [id number] [address]- 4517 July, [place] [id number] [place] [address] 72330- 2855 July, Moderate depressed bipolar I disorder F31.32 ; Cannabis abuse F12.10 and First trimester Z33.1 [place] [address] [place] [id number] [place] [address] 58491- 5987 Jun, [place] [address] [place] [id number] [place] [address] 51901- 7204 Jun, [place] [address] [place] [id number] [place] [address] 50679- 8195 Jun, confirmed by positive urine test Z32.01 [place] [address] 36917- 7715 Jun, Moderate depressed bipolar I disorder F31.32 and Cannabis abuse F12.10 [place] [address] [place] [id number] [place] [address] 12825- 5991 May, [place] [address] [place] [id number] [place] [address] 71937- 5767 May, [place] [address] [place] [id number] [place] [address] 68623- 2445 May, Moderate depressed bipolar I disorder F31.32 and Cannabis abuse F12.10 [place] [address] [place] [address] 93334- 8665 May, Routine screening for STI (sexually transmitted infection) Z11.3 ; Moderate depressed bipolar I disorder F31.32 ; Unprotected sexual intercourse Z72.51 ; History of irregular menstrual bleeding Z87.42 ; Screening for malignant neoplasm of cervix Z12.4 and Vaginal discharge N89.8 [place] [address] [place] [id number] [place] [address] 50118- 8987 May, Moderate depressed bipolar I disorder F31.32 and Cannabis abuse F12.10 [place] [address] [place] [address] 39597- 4177 Apr, History of long-term use of multiple prescription drugs Z92.29 [address] [place] [address] 64501- 4141 24 Apr, 2015 Tobacco abuse Z72.0 ; High risk bisexual behavior Z72.53 ; History of long-term use of multiple prescription drugs Z92.29 and Family history of hyperlipidemia Z83.49 [place] [id number] [place] [address] 55571- 6046 Apr, [address] 56427- 3048 Jan, Posttraumatic stress disorder F43.10 ; Borderline personality disorder F60.3 and Bipolar disorder with severe depression F31.[address] 76559- 0414 Nov, Bipolar I disorder, most recent episode (or current) mixed, moderate 296.62 ; Posttraumatic stress disorder 309.81 and Nondependent cannabis abuse, unspecified 305.20 [place] [id number] [place] [address] 68890- 8517 Nov, Posttraumatic stress disorder 309.81 ; Attention deficit 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.00 and Bipolar I disorder, most recent episode (or current) mixed, moderate 296.62 [place] [id number] [place] [address] 10406- 0577 Oct, [place] [id number] [place] [address] 54529- 6815 Sep, Family history of diabetes mellitus V18.0 ; Fatigue 780.79 ; Tobacco abuse 305.1 and Overweight 278.02 [place] [id number] [place] [address] 48218- 5953 Aug, [address] 07301- 0792 Aug, [place] [id number] [place] [address] 74593- 7537 Aug, [address] [place] [address]- 8056 Aug, Bipolar I disorder, most recent episode (or current) mixed, moderate 296.62 and Nondependent cannabis abuse, unspecified 305.20 [facility] [address] [place] [id number] [place] [address] 81356406- 8795 July, Bipolar I disorder, most recent episode (or current) mixed, moderate 296.62 ; Posttraumatic stress disorder 309.81 ; Attention deficit 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.00 and Nondependent cannabis abuse, unspecified 305.20 [facility] [address] [place] [id number] [place] [address] 32374- 7101 July, [facility] [address] [place] [id number] [place] [address] 88428- 8333 Jun, [facility] [address] [place] [id number] [place] [address] 55979- 3094 Jun, [facility] [address] [place] [id number] [place] [address] 32010- 4421 May, [facility] [address] [place] [id number] [place] [address] 80450- 4632 May, [facility] [address] [place] [id number] [place] [address] 13584- 3871 May, [facility] [id number] [place] [address] 73573- 8511 May, [facility] [address] [place] [id number] [place] [address] 31476- 4284 May, [facility] [id number] [place] [address] [id number]- 2027 May, [facility] [address] [place] [id number] [place] [address] 266975- 6010 Apr, [facility] [address] [place] [id number] [place] [address] 069165- 5346 Apr, [facility] [address] [place] [id number] [place] [address] 77358- 4348 Mar, [facility] [place] [facility] [address] [id number] [place] [address]- 2325 Mar, [facility] [place] [facility] [address] [id number] [place] 1323 Mar, [facility] [place] [facility] [address] [id number] [place] [address]- 0406 Mar, [facility] [place] [facility] [address] [id number] [place] [address]- 6272 Mar, [facility] [place] [facility] [address] [id number] [place] [address]- 5431 Mar, [facility] [place] [facility] [address] [id number] [place] [address]- 2137 Feb, [facility] [place] [facility] [address] [id number] [place] [address]- 5196 Feb, [facility] [place] [facility] [address] [id number] [place] [address]- 4180 Feb, [facility] [place] [facility] [address] [id number] [place] [address]- 9116 Feb, [facility] [place] [facility] [address] [id number] [place] [address]- 7538 Feb, [facility] [place] [facility] [address] [id number] [place] [address]- 0948 Feb, [facility] [place] [facility] [address] [id number] [place] [address]- 1744 Feb, [facility] [place] [facility] [address] [id number] [place] 8200 Jan, [facility] [place] [facility] [address] [id number] [place] 0421 Jan, [facility] [place] [facility] [address] [id number] [place] 5468 Jan, [facility] [place] [facility] [address] [id number] [place] [address]- 4389 Jan, [facility] [place] [facility] [address] [id number] [place] [address]- 0508 Jan, [facility] [place] [facility] [address] [id number] [place] [address]- 6069 Jan, [facility] [place] [facility] [address] [id number] [place] [address]- 9174 Dec, [facility] [place] [facility] [address] [id number] [place] [address]- 6935 Dec, [facility] [place] [facility] [address] [id number] [place] [address]- 0941 Dec, [facility] [place] [facility] [address] [id number] [place] [address]- 6622 Dec, [facility] [place] [facility] [address] [id number] [place] [address]- 2939 Dec, [facility] [place] [facility] [address] [id number] [place] [address]- 7594 Dec, [facility] [place] [facility] [address] [id number] [place] [address]- 7823 Dec, [facility] [place] [facility] [address] [id number] [place] [address]- 4617 Dec, [facility] [place] [facility] [address] [id number] [place] [address]- 4993 Nov, [facility] [place] [facility] [address] [id number] [place] [address]- 2196 Nov, [facility] [place] [facility] [address] [id number] [place] [address]- 9468 Oct, [facility] [place] [facility] [address] [id number] [place] [address]- 6660 Oct, [facility] [place] [facility] [address] [id number] [place] [address]- 0481 Oct, [facility] [place] [facility] [address] [id number] [place] [address]- 0228 Aug, [facility] [place] [facility] [address] [id number] [place] [address]- 4074 Aug, [facility] [place] [facility] [address] [id number] [place] [address]- 3945 Aug, [facility] [place] [facility] [address] [id number] [place] [address]- 5147 Aug, [facility] [place] [facility] [address] [id number] [place] [address]- 3648 July, [facility] [place] [facility] [address] [id number] [place] [address]- 7480 July, [facility] [place] [facility] [address] [id number] [place] [address]- 2212 July, [facility] [place] [facility] [address] [id number] [place] [address]- 2999 July, [facility] [place] [facility] [address] [id number] [place] [address]- 3532 July, [facility] [place] [facility] [address] [id number] [place] [address]- 2990 July, [facility] [place] [facility] [address] [id number] [place] [address]- 8171 Jun, [facility] [place] [facility] [address] [id number] [place] [address]- 7081 Jun, [facility] [place] [facility] [address] [id number] [place] [address]- 5870 Jun, [facility] [place] [facility] [address] [id number] [place] [address]- 0141 Jun, [facility] [place] [facility] [address] [id number] [place] [address]- 6327 Apr, [facility] [place] [facility] [address] [id number] [place] [address]- 9531 14 Apr, 2013 [facility] [address] [id number] [place] [address]- 3455 Mar, [facility] [place] [facility] [address] [id number] [place] [address]- 3173 Mar, [facility] [address] [id number] [place] [address]- 7449 Mar, [facility] [place] [facility] [address] [id number] [place] [address]- 2020 Mar, [facility] [address] [id number] [place] 5590 16 Feb, 2013 [facility] [address] [id number] [place] [address]- 0218 16 Feb, 2013 [facility] [address] [id number] [place] [address]- 2572 13 Feb, 2013 [facility] [place] [facility] [address] [id number] [place] [address]- 3822 13 Feb, 2013 [facility] [place] [facility] [address] [id number] [place] [address]- 6335 13 Feb, 2013 [facility] [address] [facility] [id number] [place] [address]- 8751 13 Feb, 2013 [facility] [place] [facility] [address] [id number] [place] [address]- 7181 11 Feb, 2013 [facility] [place] [facility] [address] [id number] [place] [address]- 2549 11 Feb, 2013 [facility] [place] [facility] [address] [id number] [place] [address]- 5568 04 Feb, 2013 [facility] [place] [facility] [address] [id number] [place] 1661 03 Feb, 2013 [facility] [place] [facility] [address] [id number] [place] [address]- 5337 Feb, [facility] [place] [facility] [address] [id number] [place] [address]- 7893 Jan, [facility] [place] [facility] [address] [id number] [place] [address]- 8573 Jan, [facility] [place] [facility] [address] [id number] [place] [address]- 6930 Jan, [facility] [place] [facility] [address] [id number] [place] [address]- 6963 Jan, [facility] [place] [facility] [address] [id number] [place] [address]- 2373 Dec, [facility] [place] [facility] [address] [id number] [place] [address]- 9018 Dec, [facility] [place] [facility] [address] [id number] [place] [address]- 6939 Dec, [facility] [place] [facility] [address] [id number] [place] [address]- 7359 Dec, [facility] [place] [facility] [address] [id number] [place] [address]- 5211 Dec, [facility] [place] [facility] [address] [id number] [place] [address]- 3029 Dec, [facility] [place] [facility] [address] [id number] [place] [address] Oct, [facility] [place] [facility] [address] [id number] [place] [address] Oct, [facility] [place] [facility] [address] [id number] [place] [address] Oct, [facility] [place] [facility] [address] [id number] [place] [address] Oct, [facility] [place] [facility] [address] [id number] [place] [address] Sep, [facility] [place] [facility] [address] [id number] [place] [address] Sep, [facility] [address] [id number] [place] [address] Aug, [facility] [address] [id number] [place] [address] July, [facility] [address] [id number] [place] [address] Jun, [facility] [address] [id number] [place] [address] Jun, [facility] [address] [id number] [place] [address] Jun, [facility] [address] [id number] [place] [address] May, [facility] [address] [id number] [place] [address] May, [facility] [address] [id number] [place] [address]- [address] May, [facility] [address] [id number] [place] [address] Apr, [facility] [address] [id number] [place] [address] Mar, [facility] [address] [id number] [place] [address] Mar, [facility] [place] [facility] [address] [id number] [place] [address] Mar, [facility] [place] [facility] [address] [id number] [place] [address] Feb, [facility] [place] [facility] [address] [id number] [place] [address] Feb, [facility] [place] [facility] [address] [id number] [place] [address] Feb, [facility] [place] [facility] [address] [id number] [place] [address] Feb, [facility] [place] [facility] [address] [id number] [place] [address] Jan, [facility] [place] [facility] [address] [id number] [place] [address] Jan, [facility] [address] [id number] [place] [address] Jan, [facility] [place] [facility] [address] [id number] [place] [address] Dec, [facility] [place] [facility] [address] [id number] [place] [address] Dec, [facility] [place] [facility] [address] [id number] [place] [address] Oct, [facility] [place] [facility] [address] [id number] [place] [address] Sep, [facility] [address] [id number] [place] [address] Sep, [facility] [place] [facility] [address] [id number] [place] [address] July, [facility] [address] [id number] [place] [id number] July, [facility] [place] [facility] [address] [id number] [place] [address] Jun, [facility] [place] [facility] [address] [id number] [place] [address] Jun, [facility] [place] [facility] [address] [id number] [place] [address] Jun, [facility] [place] [facility] [address] [id number] [place] [address] Jun, [facility] [place] [facility] [address] [id number] [place] [address] Apr, [facility] [id number] [address] Apr, [facility] [id number] [address] Mar, [facility] [id number] [address] Mar, [facility] [id number] [address] Mar, [facility] [id number] [address] Feb, [facility] [id number] [place] [address] Feb, [facility] [id number] [address] Feb, [facility] [id number] [address] Feb, [facility] [id number] [address] Feb, [facility] [id number] [address] Jan, [facility] [id number] [address] Mar, [facility] [id number] [address] Mar, [facility] [id number] [address] Jan, IMMUNIZATIONS No Known Immunizations SOCIAL HISTORY Never Assessed REASON FOR VISIT Requests return call PLAN OF CARE VITAL SIGNS MEDICATIONS Unknown [...] treatment for suicidal tendencies, cutter, burner, biter ([place] x2, [place] x1, [place] x3) Hospitalization History Acute Migraines/Vomiting 2014 Hospitalization History Childbirth 01/31/2016
--- OUTSIDE RECORDS SUMMARY | 2018-06-01 07:34 | XMS REPORT | Continuity of Care Document ---
Author Author [facility] Address Unknown Phone Unavailable Allergies Active Description Code Type Severity Reaction Onset Reported/Identified Relationship to Patient Clinical Status Yes [id number] UNKNOWN OTHER Yes No Known Drug Allergies [id number] Drug Allergy Unknown N/A 04/10/2010 Yes Viibryd 10 mg tablet Drug Allergy N/A N/A 01/23/2013 Yes vilazodone [id number] Drug Allergy Unknown HIVES 05/25/2018 Medications Medication Packaging Start Date Stop Date Route Dosage Sig IPRATROPIUM/ALBUTEROL INH SOLN (DUO-NEB INH SOLN) MLS 03/05/2017 03/05/2017 ONCE&1824 Methylprednisolone inj susp 80mg (DEPO-Medrol) MG 03/05/2017 03/05/2017 ONCE&1824 METHYLPREDNISOLONE VIAL INJ 125 MG/2CC (SOLU-MEDROL VIAL) MG 03/05/2017 03/05/2017 ONCE&1839 NORMAL SALINE 1000CC IV BAG INJ 0.9 % (NS 1000CC IV BAG) ml 03/05/2017 03/05/2017 ONCE&1900 TETANUS,DIPTH,PERT ADULT INJ 0 (ADACEL SYRINGE) ml 08/07/2017 08/07/2017 ONCE&1748 Ondansetron 4mg oral DissolveTab (Zofran) MG 03/20/2018 03/20/2018 ONCE&2123 KETOROLAC VIAL INJ 30 MG/CC (TORADOL VIAL) MG 03/20/2018 03/20/2018 ONCE&2123 Problems Date Dx Coded Attending Type Code Diagnosis Diagnosed By 09/12/2007 296.32 MAJOR DEPRESSIVE AFFECTIVE DISORDER RECURRENT EPISODE MODERATE DEGREE 09/12/2007 296.32 MAJOR DEPRESSIVE AFFECTIVE DISORDER RECURRENT EPISODE MODERATE DEGREE 09/12/2007 296.32 MAJOR DEPRESSIVE AFFECTIVE DISORDER RECURRENT EPISODE MODERATE DEGREE 09/12/2007 AMANDA ARZATE APRN 296.32 MAJOR DEPRESSIVE AFFECTIVE DISORDER RECURRENT EPISODE MODERATE DEGREE 09/12/2007 AMANDA ARZATE APRN 296.32 MAJOR DEPRESSIVE AFFECTIVE DISORDER RECURRENT EPISODE MODERATE DEGREE 09/12/2007 296.32 MAJOR DEPRESSIVE AFFECTIVE DISORDER RECURRENT EPISODE MODERATE DEGREE 09/12/2007 296.32 MAJOR DEPRESSIVE AFFECTIVE DISORDER RECURRENT EPISODE MODERATE DEGREE 09/12/2007 296.32 MAJOR DEPRESSIVE AFFECTIVE DISORDER RECURRENT EPISODE MODERATE DEGREE 09/12/2007 296.32 MAJOR DEPRESSIVE AFFECTIVE DISORDER RECURRENT EPISODE MODERATE DEGREE 09/12/2007 PRASANNA TRIMBLE APRN A 296.32 MAJOR DEPRESSIVE AFFECTIVE DISORDER RECURRENT EPISODE MODERATE DEGREE 09/12/2007 MARTÍNEZ DO, GAEL K 296.32 MAJOR DEPRESSIVE AFFECTIVE DISORDER RECURRENT EPISODE MODERATE DEGREE 09/12/2007 MARTÍNEZ DO, GAEL K 296.32 MAJOR DEPRESSIVE AFFECTIVE DISORDER RECURRENT EPISODE MODERATE DEGREE 09/12/2007 HUEY BRANCH AMANDA SEPIDEH 296.32 MAJOR DEPRESSIVE AFFECTIVE DISORDER RECURRENT EPISODE MODERATE DEGREE 09/12/2007 MARIANA BHANDARI APRN 296.32 MAJOR DEPRESSIVE AFFECTIVE DISORDER RECURRENT EPISODE MODERATE DEGREE 09/12/2007 HUEY BRANCH AMANDA SEPIDEH 296.32 MAJOR DEPRESSIVE AFFECTIVE DISORDER RECURRENT EPISODE MODERATE DEGREE 09/12/2007 HUEY BRANCH AMANDA SEPIDEH 296.32 MAJOR DEPRESSIVE AFFECTIVE DISORDER RECURRENT EPISODE MODERATE DEGREE 09/12/2007 MARTÍNEZ DO, GAEL K 296.32 MAJOR DEPRESSIVE AFFECTIVE DISORDER RECURRENT EPISODE MODERATE DEGREE 09/12/2007 BEKA BRAUN APRNYL A 296.32 MAJOR DEPRESSIVE AFFECTIVE DISORDER RECURRENT EPISODE MODERATE DEGREE 09/12/2007 CHAKA NGUYEN APRN 296.32 MAJOR DEPRESSIVE AFFECTIVE DISORDER RECURRENT EPISODE MODERATE DEGREE 09/12/2007 BEKA BRAUN APRNYL A 296.32 MAJOR DEPRESSIVE AFFECTIVE DISORDER RECURRENT EPISODE MODERATE DEGREE 09/12/2007 BECKI BRENNAN APRN 296.32 MAJOR DEPRESSIVE AFFECTIVE DISORDER RECURRENT EPISODE MODERATE DEGREE 10/02/2007 296.89 MO BIPOLAR II 10/02/2007 296.89 MO BIPOLAR II 10/02/2007 296.89 MO BIPOLAR II 10/02/2007 AMANDA ARZATE APRN 296.89 MO BIPOLAR II 10/02/2007 AMANDA ARZATE APRN 296.89 MO BIPOLAR II 10/02/2007 296.89 MO BIPOLAR II 10/02/2007 296.89 MO BIPOLAR II 10/02/2007 296.89 MO BIPOLAR II 10/02/2007 296.89 MO BIPOLAR II 10/02/2007 ATILIO MID LEVEL CLINICIAN, PRASANNA A 296.89 MO BIPOLAR II 10/02/2007 HUI MARTÍNEZ DOA K 296.89 MO BIPOLAR II 10/02/2007 TANYA DIXON GAEL K 296.89 MO BIPOLAR II 10/02/2007 HUEY BRANCH AMANDA BUNN 296.89 MO BIPOLAR II 10/02/2007 THONY MID LEVEL CLINICIANMARIANA Álvarez 296.89 MO BIPOLAR II 10/02/2007 HUEY BRANCH AMANDA BUNN 296.89 MO BIPOLAR II 10/02/2007 HUEY BRANCH AMANDA BUNN 296.89 MO BIPOLAR II 10/02/2007 HUI MARTÍNEZ DOA K 296.89 MO BIPOLAR II 10/02/2007 APARNA MONTESHenri DIGNA A 296.89 MO BIPOLAR II 10/02/2007 PATRICK MID LEVEL CLINICIANCHAKA Álvarez 296.89 MO BIPOLAR II 10/02/2007 APARNA MID LEVEL CLINICIAN, DIGNA A 296.89 MO BIPOLAR II 10/02/2007 BECKI BRENNAN APRN 296.89 MO BIPOLAR II 10/03/2007 296.90 MOOD DISORDER 10/03/2007 V58.69 taking high- risk medication 10/03/2007 296.90 MOOD DISORDER 10/03/2007 V58.69 taking high- risk medication 10/03/2007 296.90 MOOD DISORDER 10/03/2007 V58.69 taking high- risk medication 10/03/2007 HUEY BRANCH AMANDA BUNN 296.90 MOOD DISORDER 10/03/2007 HUEY BRANCH AMANDA BUNN V58.69 taking high-risk medication 10/03/2007 HUEY BRANCH AMANDA BUNN 296.90 MOOD DISORDER 10/03/2007 HUEY BRANCH AMANDA BUNN V58.69 taking high-risk medication 10/03/2007 296.90 MOOD DISORDER 10/03/2007 V58.69 taking high- risk medication 10/03/2007 296.90 MOOD DISORDER 10/03/2007 V58.69 taking high- risk medication 10/03/2007 296.90 MOOD DISORDER 10/03/2007 V58.69 taking high- risk medication 10/03/2007 296.90 MOOD DISORDER 10/03/2007 V58.69 taking high- risk medication 10/03/2007 PRASANNA TRIMBLE APRN A 296.90 MOOD DISORDER 10/03/2007 ATILIO MID LEVEL CLINICIAN, PRASANNA A V58.69 taking high-risk medication 10/03/2007 MARTÍNEZ DO, GAEL K 296.90 MOOD DISORDER 10/03/2007 MARTÍNEZ DO, GAEL K V58.69 taking high-risk medication 10/03/2007 MARTÍNEZ DO, GAEL K 296.90 MOOD DISORDER 10/03/2007 MARTÍNEZ DO, GAEL K V58.69 taking high-risk medication 10/03/2007 HUEY MONTESHenri AMANDA BUNN 296.90 MOOD DISORDER 10/03/2007 HUEY MONTESHenri AMANDA BUNN V58.69 taking high-risk medication 10/03/2007 THONY BRANCH MARIANA R 296.90 MOOD DISORDER 10/03/2007 THONY MID LEVEL CLINICIAN, MARIANA R V58.69 taking high-risk medication 10/03/2007 HUEY MONTESHenri AMANDA BUNN 296.90 MOOD DISORDER 10/03/2007 HUEY MONTESHenri AMANDA BUNN V58.69 taking high-risk medication 10/03/2007 HUEY MONTESHenri AMANDA BUNN 296.90 MOOD DISORDER 10/03/2007 HUEY MONTESHenri AMANDA BUNN V58.69 taking high-risk medication 10/03/2007 MARTÍNEZ DO, GAEL K 296.90 MOOD DISORDER 10/03/2007 MARTÍNEZ DO, GAEL K V58.69 taking high-risk medication 10/03/2007 APARNA BRANCH, DIGNA A 296.90 MOOD DISORDER 10/03/2007 ZOYAE JOSE CARLOS, DIGNA A V58.69 taking high-risk medication 10/03/2007 MADL JOSE CARLOS, CHAKA L 296.90 MOOD DISORDER 10/03/2007 MADL JOSE CARLOS, CHAKA L V58.69 taking high-risk medication 10/03/2007 APARNA BRANCH, DIGNA A 296.90 MOOD DISORDER 10/03/2007 ZOYAE JOSE CARLOS, DIGNA A V58.69 taking high-risk medication 10/03/2007 KINSEY BRENNAN APRNA J 296.90 MOOD DISORDER 10/03/2007 KINSEY BRENNAN APRNA J V58.69 taking high-risk medication 10/18/2007 780.52 INSOMNIA UNSPECIFIED 10/18/2007 780.52 INSOMNIA UNSPECIFIED 10/18/2007 780.52 INSOMNIA UNSPECIFIED 10/18/2007 HUEY BRANCH AMANDA BUNN 780.52 INSOMNIA UNSPECIFIED 10/18/2007 HUEY BRANCH AMANDA BUNN 780.52 INSOMNIA UNSPECIFIED 10/18/2007 780.52 INSOMNIA UNSPECIFIED 10/18/2007 780.52 INSOMNIA UNSPECIFIED 10/18/2007 780.52 INSOMNIA UNSPECIFIED 10/18/2007 780.52 INSOMNIA UNSPECIFIED 10/18/2007 PRASANNA TRIMBLE APRN 780.52 INSOMNIA UNSPECIFIED 10/18/2007 GAEL MARTÍNEZ DO K 780.52 INSOMNIA UNSPECIFIED 10/18/2007 HUI MARTÍNEZ DOA K 780.52 INSOMNIA UNSPECIFIED 10/18/2007 HUEY BRANCH AMANDA BUNN 780.52 INSOMNIA UNSPECIFIED 10/18/2007 MARIANA BHANDARI APRN R 780.52 INSOMNIA UNSPECIFIED 10/18/2007 HUEY BRANCH AMANDA BUNN 780.52 INSOMNIA UNSPECIFIED 10/18/2007 HUEY BRANCH AMANDA BUNN 780.52 INSOMNIA UNSPECIFIED 10/18/2007 GAEL MARTÍNEZ DO K 780.52 INSOMNIA UNSPECIFIED 10/18/2007 BEKA BRAUN APRNYL A 780.52 INSOMNIA UNSPECIFIED 10/18/2007 CHAKA NGUYEN APRN 780.52 INSOMNIA UNSPECIFIED 10/18/2007 APARNA BRANCH DIGNA A 780.52 INSOMNIA UNSPECIFIED 10/18/2007 BECKI BRENNAN APRN 780.52 INSOMNIA UNSPECIFIED 11/07/2007 706.1 ACNE CYSTIC 11/07/2007 706.1 ACNE CYSTIC 11/07/2007 706.1 ACNE CYSTIC 11/07/2007 HUEY BRANCH AMANDA SEPIDEH 706.1 ACNE CYSTIC 11/07/2007 HUEY BRANCH AMANDA SEPIDEH 706.1 ACNE CYSTIC 11/07/2007 706.1 ACNE CYSTIC 11/07/2007 706.1 ACNE CYSTIC 11/07/2007 706.1 ACNE CYSTIC 11/07/2007 706.1 ACNE CYSTIC 11/07/2007 PRASANNA TRIMBLE APRN 706.1 ACNE CYSTIC 11/07/2007 GAEL MARTÍNEZ DO K 706.1 ACNE CYSTIC 11/07/2007 GAEL MARTÍNEZ DO K 706.1 ACNE CYSTIC 11/07/2007 HUEY BRANCH AMANDA SEPIDEH 706.1 ACNE CYSTIC 11/07/2007 MARIANA BHANDARI APRN R 706.1 ACNE CYSTIC 11/07/2007 AMANDA ARZATE APRN 706.1 ACNE CYSTIC 11/07/2007 HUEY MONTESNAMANDA 706.1 ACNE CYSTIC 11/07/2007 GAEL MARTÍNEZ DO K 706.1 ACNE CYSTIC 11/07/2007 APARNA BRANCH, DIGNA A 706.1 ACNE CYSTIC 11/07/2007 PATRICK MID LEVEL CLINICIANCHAKA Álvarez L 706.1 ACNE CYSTIC 11/07/2007 APARNA MID LEVEL CLINICIANBEKA ÁlvarezYL A 706.1 ACNE CYSTIC 11/07/2007 ANU MID LEVEL CLINICIANKINSEY ÁlvarezA J 706.1 ACNE CYSTIC 12/12/2007 251.1 HYPERINSULINISM 12/12/2007 251.1 HYPERINSULINISM 12/12/2007 251.1 HYPERINSULINISM 12/12/2007 ARZATE MID LEVEL CLINICIAN, AMANDA MENJIVARH 251.1 HYPERINSULINISM 12/12/2007 HUEY MONTESHenri AMANDA BUNN 251.1 HYPERINSULINISM 12/12/2007 251.1 HYPERINSULINISM 12/12/2007 251.1 HYPERINSULINISM 12/12/2007 251.1 HYPERINSULINISM 12/12/2007 251.1 HYPERINSULINISM 12/12/2007 ATILIO MID LEVEL CLINICIAN, PRASANNA A 251.1 HYPERINSULINISM 12/12/2007 GAEL MARTÍNEZ DO K 251.1 HYPERINSULINISM 12/12/2007 GAEL MARTÍNEZ DO K 251.1 HYPERINSULINISM 12/12/2007 HUEY BRANCH AMANDA MENJIVARH 251.1 HYPERINSULINISM 12/12/2007 THONY MID LEVEL CLINICIANMARIANA Álvarez R 251.1 HYPERINSULINISM 12/12/2007 ARZATE MID LEVEL CLINICIAN, AMANDA MENJIVARH 251.1 HYPERINSULINISM 12/12/2007 ARZATE MID LEVEL CLINICIAN, AMANDA BUNN 251.1 HYPERINSULINISM 12/12/2007 GAEL MARTÍNEZ DO K 251.1 HYPERINSULINISM 12/12/2007 APARNA MID LEVEL CLINICIANBEKA ÁlvarezYL A 251.1 HYPERINSULINISM 12/12/2007 PATRICK MID LEVEL CLINICIANCHAKA Álvarez L 251.1 HYPERINSULINISM 12/12/2007 RAJTOÑITO MID LEVEL CLINICIANBEKA ÁlvarezYL A 251.1 HYPERINSULINISM 12/12/2007 BECKI BRENNAN APRN J 251.1 HYPERINSULINISM 05/09/2008 110.4 TINEA PEDIS 05/09/2008 110.4 TINEA PEDIS 05/09/2008 110.4 TINEA PEDIS 05/09/2008 ARZATE MID LEVEL CLINICIAN, AMANDA BUNN 110.4 TINEA PEDIS 05/09/2008 ARZATE MID LEVEL CLINICIAN, AMANDA BUNN 110.4 TINEA PEDIS 05/09/2008 110.4 TINEA PEDIS 05/09/2008 110.4 TINEA PEDIS 05/09/2008 110.4 TINEA PEDIS 05/09/2008 110.4 TINEA PEDIS 05/09/2008 ATILIO MID LEVEL CLINICIAN, PRASANNA A 110.4 TINEA PEDIS 05/09/2008 MARTÍNEZ DO, GAEL K 110.4 TINEA PEDIS 05/09/2008 MARTÍNEZ DO, GAEL K 110.4 TINEA PEDIS 05/09/2008 ARZATE MID LEVEL CLINICIAN, AMANDA BUNN 110.4 TINEA PEDIS 05/09/2008 THONY MID LEVEL CLINICIAN, MARIANA R 110.4 TINEA PEDIS 05/09/2008 ARZATE MID LEVEL CLINICIAN, AMANDA BUNN 110.4 TINEA PEDIS 05/09/2008 ARZATE MID LEVEL CLINICIAN, AMANDA BUNN 110.4 TINEA PEDIS 05/09/2008 MARTÍNEZ DO, GAEL K 110.4 TINEA PEDIS 05/09/2008 RAJOTTE MID LEVEL CLINICIAN, DIGNA A 110.4 TINEA PEDIS 05/09/2008 MADL MID LEVEL CLINICIAN, CHAKA L 110.4 TINEA PEDIS 05/09/2008 RAJOTTE MID LEVEL CLINICIAN, DIGNA A 110.4 TINEA PEDIS 05/09/2008 ANU MID LEVEL CLINICIAN, BECKI J 110.4 TINEA PEDIS 06/27/2008 293.83 MOOD DISORDER OF UNKNOWN (AXIS III) ETIOLOGY 06/27/2008 293.83 MOOD DISORDER OF UNKNOWN (AXIS III) ETIOLOGY 06/27/2008 293.83 MOOD DISORDER OF UNKNOWN (AXIS III) ETIOLOGY 06/27/2008 HUEY MONTESNAMANDA 293.83 MOOD DISORDER OF UNKNOWN (AXIS III) ETIOLOGY 06/27/2008 HUEY MONTESNAMANDA 293.83 MOOD DISORDER OF UNKNOWN (AXIS III) ETIOLOGY 06/27/2008 293.83 MOOD DISORDER OF UNKNOWN (AXIS III) ETIOLOGY 06/27/2008 293.83 MOOD DISORDER OF UNKNOWN (AXIS III) ETIOLOGY 06/27/2008 293.83 MOOD DISORDER OF UNKNOWN (AXIS III) ETIOLOGY 06/27/2008 293.83 MOOD DISORDER OF UNKNOWN (AXIS III) ETIOLOGY 06/27/2008 ATILIO BRANCH PRASANNA A 293.83 MOOD DISORDER OF UNKNOWN (AXIS III) ETIOLOGY 06/27/2008 HUI MARTÍNEZ DOA K 293.83 MOOD DISORDER OF UNKNOWN (AXIS III) ETIOLOGY 06/27/2008 HUI MARTÍNEZ DOA K 293.83 MOOD DISORDER OF UNKNOWN (AXIS III) ETIOLOGY 06/27/2008 ARZATE MID LEVEL CLINICIAN, AMANDA BUNN 293.83 MOOD DISORDER OF UNKNOWN (AXIS III) ETIOLOGY 06/27/2008 MARIANA BHANDARI APRN 293.83 MOOD DISORDER OF UNKNOWN (AXIS III) ETIOLOGY 06/27/2008 ARZATE MID LEVEL CLINICIAN AMANDA BUNN 293.83 MOOD DISORDER OF UNKNOWN (AXIS III) ETIOLOGY 06/27/2008 ARZATE MID LEVEL CLINICIAN AMANDA MENJIVARH 293.83 MOOD DISORDER OF UNKNOWN (AXIS III) ETIOLOGY 06/27/2008 GAEL MARTÍNEZ DO K 293.83 MOOD DISORDER OF UNKNOWN (AXIS III) ETIOLOGY 06/27/2008 RAJOTTE MID LEVEL CLINICIAN, DIGNA A 293.83 MOOD DISORDER OF UNKNOWN (AXIS III) ETIOLOGY 06/27/2008 PATRICK MID LEVEL CLINICIANCHAKA Álvarez 293.83 MOOD DISORDER OF UNKNOWN (AXIS III) ETIOLOGY 06/27/2008 RAJOTTE MID LEVEL CLINICIAN, DIGNA A 293.83 MOOD DISORDER OF UNKNOWN (AXIS III) ETIOLOGY 06/27/2008 BECKI BRENNAN APRN 293.83 MOOD DISORDER OF UNKNOWN (AXIS III) ETIOLOGY 08/02/2008 535.00 ACUTE GASTRITIS (WITHOUT HEMORRHAGE) 08/02/2008 535.00 ACUTE GASTRITIS (WITHOUT HEMORRHAGE) 08/02/2008 535.00 ACUTE GASTRITIS (WITHOUT HEMORRHAGE) 08/02/2008 HUEY BRANCH AMANDA SEPIDEH 535.00 ACUTE GASTRITIS (WITHOUT HEMORRHAGE) 08/02/2008 HUEY BRANCH AMANDA BUNN 535.00 ACUTE GASTRITIS (WITHOUT HEMORRHAGE) 08/02/2008 535.00 ACUTE GASTRITIS (WITHOUT HEMORRHAGE) 08/02/2008 535.00 ACUTE GASTRITIS (WITHOUT HEMORRHAGE) 08/02/2008 535.00 ACUTE GASTRITIS (WITHOUT HEMORRHAGE) 08/02/2008 535.00 ACUTE GASTRITIS (WITHOUT HEMORRHAGE) 08/02/2008 ATILIO BRANCH PRASANNA A 535.00 ACUTE GASTRITIS (WITHOUT HEMORRHAGE) 08/02/2008 GAEL MARTÍNEZ DO K 535.00 ACUTE GASTRITIS (WITHOUT HEMORRHAGE) 08/02/2008 MARTÍNEZ DO, GAEL K 535.00 ACUTE GASTRITIS (WITHOUT HEMORRHAGE) 08/02/2008 ARZATE MID LEVEL CLINICIAN, AMANDA BUNN 535.00 ACUTE GASTRITIS (WITHOUT HEMORRHAGE) 08/02/2008 THONY MID LEVEL CLINICIANMARIANA Álvarez R 535.00 ACUTE GASTRITIS (WITHOUT HEMORRHAGE) 08/02/2008 ARZATE MID LEVEL CLINICIAN, AMANDA BUNN 535.00 ACUTE GASTRITIS (WITHOUT HEMORRHAGE) 08/02/2008 ARZATE MID LEVEL CLINICIAN, AMANDA BUNN 535.00 ACUTE GASTRITIS (WITHOUT HEMORRHAGE) 08/02/2008 MARTÍNEZ DO, GAEL K 535.00 ACUTE GASTRITIS (WITHOUT HEMORRHAGE) 08/02/2008 RAJOTTE MID LEVEL CLINICIAN, DIGNA A 535.00 ACUTE GASTRITIS (WITHOUT HEMORRHAGE) 08/02/2008 MADL MID LEVEL CLINICIAN, CHAKA L 535.00 ACUTE GASTRITIS (WITHOUT HEMORRHAGE) 08/02/2008 RAJOTTE MID LEVEL CLINICIAN, DIGNA A 535.00 ACUTE GASTRITIS (WITHOUT HEMORRHAGE) 08/02/2008 ANU MID LEVEL CLINICIANBECKI Álvarez J 535.00 ACUTE GASTRITIS (WITHOUT HEMORRHAGE) 09/27/2008 626.6 heavy bleeding between periods (metrorrhagia) 09/27/2008 V74.5 visit for: screening exam bact/spirochetal venereal disease 09/27/2008 626.6 heavy bleeding between periods (metrorrhagia) 09/27/2008 V74.5 visit for: screening exam bact/spirochetal venereal disease 09/27/2008 626.6 heavy bleeding between periods (metrorrhagia) 09/27/2008 V74.5 visit for: screening exam bact/spirochetal venereal disease 09/27/2008 HUEY BRANCH AMANDA SEPIDEH 626.6 heavy bleeding between periods (metrorrhagia) 09/27/2008 HUEY BRANCH AMANDA SEPIDEH V74.5 visit for: screening exam bact/spirochetal venereal disease 09/27/2008 AMANDA ARZATE APRN 626.6 heavy bleeding between periods (metrorrhagia) 09/27/2008 AMANDA ARZATE APRN V74.5 visit for: screening exam bact/spirochetal venereal disease 09/27/2008 626.6 heavy bleeding between periods (metrorrhagia) 09/27/2008 V74.5 visit for: screening exam bact/spirochetal venereal disease 09/27/2008 626.6 heavy bleeding between periods (metrorrhagia) 09/27/2008 V74.5 visit for: screening exam bact/spirochetal venereal disease 09/27/2008 626.6 heavy bleeding between periods (metrorrhagia) 09/27/2008 V74.5 visit for: screening exam bact/spirochetal venereal disease 09/27/2008 626.6 HEAVY BLEEDING BETWEEN PERIODS (METRORRHAGIA) 09/27/2008 V74.5 visit for: screening exam bact/spirochetal venereal disease 09/27/2008 PRASANNA TRIMBLE APRN 626.6 HEAVY BLEEDING BETWEEN PERIODS (METRORRHAGIA) 09/27/2008 PRASANNA TRIMBLE APRN A V74.5 visit for: screening exam bact/spirochetal venereal disease 09/27/2008 GAEL MARTÍNEZ DO K 626.6 HEAVY BLEEDING BETWEEN PERIODS (METRORRHAGIA) 09/27/2008 GAEL MARTÍNEZ DO K V74.5 visit for: screening exam bact/spirochetal venereal disease 09/27/2008 HUI MARTÍNEZ DOA K 626.6 HEAVY BLEEDING BETWEEN PERIODS (METRORRHAGIA) 09/27/2008 HUI MARTÍNEZ DOA K V74.5 visit for: screening exam bact/spirochetal venereal disease 09/27/2008 AMANDA ARZATE APRN 626.6 HEAVY BLEEDING BETWEEN PERIODS (METRORRHAGIA) 09/27/2008 AMANDA ARZATE APRN V74.5 visit for: screening exam bact/spirochetal venereal disease 09/27/2008 MARIANA BHANDARI APRN 626.6 HEAVY BLEEDING BETWEEN PERIODS (METRORRHAGIA) 09/27/2008 MARIANA BHANDARI APRN V74.5 visit for: screening exam bact/spirochetal venereal disease 09/27/2008 AMANDA ARZATE APRN 626.6 HEAVY BLEEDING BETWEEN PERIODS (METRORRHAGIA) 09/27/2008 AMANDA ARZATE APRN V74.5 visit for: screening exam bact/spirochetal venereal disease 09/27/2008 AMANDA ARZATE APRN 626.6 HEAVY BLEEDING BETWEEN PERIODS (METRORRHAGIA) 09/27/2008 HUEY BRANCH AMANDA SEPIDEH V74.5 visit for: screening exam bact/spirochetal venereal disease 09/27/2008 GAEL MARTÍNEZ DO 626.6 HEAVY BLEEDING BETWEEN PERIODS (METRORRHAGIA) 09/27/2008 GAEL MARTÍNEZ DO K V74.5 visit for: screening exam bact/spirochetal venereal disease 09/27/2008 BEKA BRAUN APRNYL A 626.6 HEAVY BLEEDING BETWEEN PERIODS (METRORRHAGIA) 09/27/2008 BEKA BRAUN APRNYL A V74.5 visit for: screening exam bact/spirochetal venereal disease 09/27/2008 CHAKA NGUYEN APRN 626.6 HEAVY BLEEDING BETWEEN PERIODS (METRORRHAGIA) 09/27/2008 ROGER NGUYEN APRNA L V74.5 visit for: screening exam bact/spirochetal venereal disease 09/27/2008 DIGNA BRAUN APRN A 626.6 HEAVY BLEEDING BETWEEN PERIODS (METRORRHAGIA) 09/27/2008 BEKA BRAUN APRNYL A V74.5 visit for: screening exam bact/spirochetal venereal disease 09/27/2008 BECKI BRENNAN APRN 626.6 HEAVY BLEEDING BETWEEN PERIODS (METRORRHAGIA) 09/27/2008 BECKI BRENNAN APRN V74.5 visit for: screening exam bact/spirochetal venereal disease 01/10/2009 V72.41 TEST NEGATIVE RESULT 01/10/2009 V72.41 TEST NEGATIVE RESULT 01/10/2009 V72.41 TEST NEGATIVE RESULT 01/10/2009 HUEY BRANCH AMANDA SEPIDEH V72.41 TEST NEGATIVE RESULT 01/10/2009 AMANDA ARZATE APRN V72.41 TEST NEGATIVE RESULT 01/10/2009 V72.41 TEST NEGATIVE RESULT 01/10/2009 V72.41 TEST NEGATIVE RESULT 01/10/2009 V72.41 TEST NEGATIVE RESULT 01/10/2009 V72.41 TEST NEGATIVE RESULT 01/10/2009 PRASANNA TRIMBLE APRN V72.41 TEST NEGATIVE RESULT 01/10/2009 GAEL MARTÍNEZ DO V72.41 TEST NEGATIVE RESULT 01/10/2009 TANYA DIXON GAEL K V72.41 TEST NEGATIVE RESULT 01/10/2009 AMANDA ARZATE APRN V72.41 TEST NEGATIVE RESULT 01/10/2009 THONY JOSE CARLOS MARIANA Fabian V72.41 TEST NEGATIVE RESULT 01/10/2009 AMANDA ARZATE APRN V72.41 TEST NEGATIVE RESULT 01/10/2009 AMANDA ARZATE APRN V72.41 TEST NEGATIVE RESULT 01/10/2009 HUI MARTÍNEZ DOA K V72.41 TEST NEGATIVE RESULT 01/10/2009 RAJTOÑITO BRANCH, DIGNA A V72.41 TEST NEGATIVE RESULT 01/10/2009 MADPhilip GUERITA BRANCHWNYA L V72.41 TEST NEGATIVE RESULT 01/10/2009 APARNA BRANCH DIGNA A V72.41 TEST NEGATIVE RESULT 01/10/2009 ANU ORESTES BRANCHMAUDE Araya V72.41 TEST NEGATIVE RESULT 08/22/2009 Ot 599.0 08/22/2009 Ot 789.00 03/17/2010 799.22 IRRITIBILITY 03/17/2010 V69.2 HIGH-RISK SEXUAL BEHAVIOR 03/17/2010 799.22 IRRITIBILITY 03/17/2010 V69.2 HIGH-RISK SEXUAL BEHAVIOR 03/17/2010 799.22 IRRITIBILITY 03/17/2010 V69.2 HIGH-RISK SEXUAL BEHAVIOR 03/17/2010 AMANDA ARZATE APRN 799.22 IRRITIBILITY 03/17/2010 AMANDA ARZATE APRN V69.2 HIGH-RISK SEXUAL BEHAVIOR 03/17/2010 AMANDA ARZATE APRN 799.22 IRRITIBILITY 03/17/2010 AMANDA ARZATE APRN V69.2 HIGH-RISK SEXUAL BEHAVIOR 03/17/2010 799.22 IRRITIBILITY 03/17/2010 V69.2 HIGH-RISK SEXUAL BEHAVIOR 03/17/2010 799.22 IRRITIBILITY 03/17/2010 V69.2 HIGH-RISK SEXUAL BEHAVIOR 03/17/2010 799.22 IRRITIBILITY 03/17/2010 V69.2 HIGH-RISK SEXUAL BEHAVIOR 03/17/2010 799.22 IRRITIBILITY 03/17/2010 V69.2 HIGH-RISK SEXUAL BEHAVIOR 03/17/2010 ATILIO MID LEVEL CLINICIAN, PRASANNA A 799.22 IRRITIBILITY 03/17/2010 ATILIO MID LEVEL CLINICIAN, PRASANNA A V69.2 HIGH-RISK SEXUAL BEHAVIOR 03/17/2010 MARTÍNEZ DO, GAEL K 799.22 IRRITIBILITY 03/17/2010 MARTÍNEZ DO, GAEL K V69.2 HIGH-RISK SEXUAL BEHAVIOR 03/17/2010 MARTÍNEZ DO, GAEL K 799.22 IRRITIBILITY 03/17/2010 MARTÍNEZ DO, GAEL K V69.2 HIGH-RISK SEXUAL BEHAVIOR 03/17/2010 ARZATE MID LEVEL CLINICIAN, AMANDA BUNN 799.22 IRRITIBILITY 03/17/2010 ARZATE MID LEVEL CLINICIAN, AMANDA BUNN V69.2 HIGH-RISK SEXUAL BEHAVIOR 03/17/2010 THONY MID LEVEL CLINICIAN, MARIANA R 799.22 IRRITIBILITY 03/17/2010 THONY MID LEVEL CLINICIAN, MARIANA R V69.2 HIGH-RISK SEXUAL BEHAVIOR 03/17/2010 ARZATE MID LEVEL CLINICIAN, AMANDA BUNN 799.22 IRRITIBILITY 03/17/2010 ARZATE MID LEVEL CLINICIAN, AMANDA BUNN V69.2 HIGH-RISK SEXUAL BEHAVIOR 03/17/2010 ARZATE MID LEVEL CLINICIAN, AMANDA MENJIVARH 799.22 IRRITIBILITY 03/17/2010 ARZATE MID LEVEL CLINICIAN, AMANDA MENJIVARH V69.2 HIGH-RISK SEXUAL BEHAVIOR 03/17/2010 MARTÍNEZ DO, GAEL K 799.22 IRRITIBILITY 03/17/2010 MARTÍNEZ DO, GAEL K V69.2 HIGH-RISK SEXUAL BEHAVIOR 03/17/2010 RAJOTTE MID LEVEL CLINICIAN, DIGNA A 799.22 IRRITIBILITY 03/17/2010 RAJOTTE MID LEVEL CLINICIAN, DIGNA A V69.2 HIGH-RISK SEXUAL BEHAVIOR 03/17/2010 MADL MID LEVEL CLINICIAN, CHAKA L 799.22 IRRITIBILITY 03/17/2010 MADL MID LEVEL CLINICIAN, CHAKA L V69.2 HIGH-RISK SEXUAL BEHAVIOR 03/17/2010 RAJOTTE MID LEVEL CLINICIAN, DIGNA A 799.22 IRRITIBILITY 03/17/2010 BRIGIDOTTE MID LEVEL CLINICIAN, DIGNA A V69.2 HIGH-RISK SEXUAL BEHAVIOR 03/17/2010 ORESTES BRENNAN APRNINDA J 799.22 IRRITIBILITY 03/17/2010 KINSEY BRENNAN APRNAlpa Araya V69.2 HIGH-RISK SEXUAL BEHAVIOR 03/21/2010 V25.49 SURVEILLANCE OF OTHER CONTRACEPTIVE METHOD 03/21/2010 V72.31 SLIP MAKER EXAM, ROUTINE 03/21/2010 V25.49 SURVEILLANCE OF OTHER CONTRACEPTIVE METHOD 03/21/2010 V72.31 SLIP MAKER EXAM, ROUTINE 03/21/2010 V25.49 SURVEILLANCE OF OTHER CONTRACEPTIVE METHOD 03/21/2010 V72.31 SLIP MAKER EXAM, ROUTINE 03/21/2010 HUEY BRANCH AMANDA SEPIDEH V25.49 SURVEILLANCE OF OTHER CONTRACEPTIVE METHOD 03/21/2010 ARZATE MID LEVEL CLINICIAN, AMANDA MENJIVARH V72.31 SLIP MAKER EXAM, ROUTINE 03/21/2010 HUEY BRANCH AMANDA SEPIDEH V25.49 SURVEILLANCE OF OTHER CONTRACEPTIVE METHOD 03/21/2010 HUEY BRANCH AMANDA SEPIDEH V72.31 SLIP MAKER EXAM, ROUTINE 03/21/2010 V25.49 SURVEILLANCE OF OTHER CONTRACEPTIVE METHOD 03/21/2010 V72.31 SLIP MAKER EXAM, ROUTINE 03/21/2010 V25.49 SURVEILLANCE OF OTHER CONTRACEPTIVE METHOD 03/21/2010 V72.31 SLIP MAKER EXAM, ROUTINE 03/21/2010 V25.49 SURVEILLANCE OF OTHER CONTRACEPTIVE METHOD 03/21/2010 V72.31 SLIP MAKER EXAM, ROUTINE 03/21/2010 V25.49 SURVEILLANCE OF OTHER CONTRACEPTIVE METHOD 03/21/2010 V72.31 SLIP MAKER EXAM, ROUTINE 03/21/2010 ATILIOHenri BRANCH PRASANNA A V25.49 SURVEILLANCE OF OTHER CONTRACEPTIVE METHOD 03/21/2010 ATILIOHenri BRANCH PRASANNA A V72.31 SLIP MAKER EXAM, ROUTINE 03/21/2010 MARTÍNEZ DO GAEL K V25.49 SURVEILLANCE OF OTHER CONTRACEPTIVE METHOD 03/21/2010 MARTÍNEZ DO GAEL K V72.31 SLIP MAKER EXAM, ROUTINE 03/21/2010 MARTÍNEZ DO GAEL K V25.49 SURVEILLANCE OF OTHER CONTRACEPTIVE METHOD 03/21/2010 MARTÍNEZ DO GAEL K V72.31 SLIP MAKER EXAM, ROUTINE 03/21/2010 HUEY BRANCH AMANDA SEPIDEH V25.49 SURVEILLANCE OF OTHER CONTRACEPTIVE METHOD 03/21/2010 ARZATE MID LEVEL CLINICIAN, AMANDA SEPIDEH V72.31 SLIP MAKER EXAM, ROUTINE 03/21/2010 MARIANA BHANDARI APRN V25.49 SURVEILLANCE OF OTHER CONTRACEPTIVE METHOD 03/21/2010 MARIANA BHANDARI APRN V72.31 SLIP MAKER EXAM, ROUTINE 03/21/2010 ARZATE MID LEVEL CLINICIAN, AMANDA BUNN V25.49 SURVEILLANCE OF OTHER CONTRACEPTIVE METHOD 03/21/2010 ARZATE JOSE CARLOS AMANDA BUNN V72.31 SLIP MAKER EXAM, ROUTINE 03/21/2010 HUEY MONTESHenri AMANDA BUNN V25.49 SURVEILLANCE OF OTHER CONTRACEPTIVE METHOD 03/21/2010 ARZATE APRN, AMANDA BUNN V72.31 SLIP MAKER EXAM, ROUTINE 03/21/2010 MARTÍNEZ DO, GAEL K V25.49 SURVEILLANCE OF OTHER CONTRACEPTIVE METHOD 03/21/2010 MARTÍNEZ DO, GAEL K V72.31 SLIP MAKER EXAM, ROUTINE 03/21/2010 BEKA BRAUN APRNYL A V25.49 SURVEILLANCE OF OTHER CONTRACEPTIVE METHOD 03/21/2010 APARNA BRANCH DIGNA A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 O09.92 SUPERVISION OF HIGH RISK , [facility] 01/27/2016 MAGUE IGLESIAS MD Ot Z36 ENCOUNTER FOR SCREENING OF MOT 01/27/2016 MAGUE IGLESIAS MD, Ot Z3A.12 12 WEEKS GESTATION OF 01/27/2016 MAGUE IGLESIAS MD, Ot Z36 ENCOUNTER FOR SCREENING OF MOT 01/27/2016 MAGUE IGLESIAS MD, Ot Z3A.19 19 WEEKS GESTATION OF 01/27/2016 MAGUE IGLESIAS MD Ot Z36 ENCOUNTER FOR SCREENING OF MOT 01/27/2016 MAGUE IGLESIAS MD Ot O47.1 FALSE LABOR AT OR AFTER 37 COMPLETED WEE 01/27/2016 MAGUE IGLESIAS MD Ot Z3A.38 38 WEEKS GESTATION OF 01/30/2016 MAGUE IGLESIAS MD Ot O47.1 FALSE LABOR AT OR AFTER 37 COMPLETED WEE 01/30/2016 MAGUE IGLESIAS MD, Ot Z3A.38 38 WEEKS GESTATION OF 02/02/2016 MAGUE IGLESIAS MD Ot O47.1 FALSE LABOR AT OR AFTER 37 COMPLETED WEE 02/02/2016 MAGUE IGLESIAS MD, Ot Z3A.38 38 WEEKS GESTATION OF 02/02/2016 NANCY LYNN MD Ot F20.9 SCHIZOPHRENIA, UNSPECIFIED 02/02/2016 NANCY LYNN MD, Ot F31.9 BIPOLAR DISORDER, UNSPECIFIED 02/02/2016 NANCY LYNN MD Ot O99.344 OTHER MENTAL DISORDERS COMPLICATING CHIL 02/02/2016 NANCY LYNN MD Ot Z37.0 SINGLE LIVE 02/02/2016 NANCY LYNN MD, Ot Z3A.39 39 WEEKS GESTATION OF 03/05/2017 MARY ANN MOREJON 487.1 INFLUENZA WITH OTHER RESPIRATORY MANIFESTATIONS 03/05/2017 MARY ANN MOREJON J10.1 FLU DUE TO OTH IDENT INFLUENZA VIRUS W OTH RESP MANIFEST 05/19/2017 Evelyn Lam W 305.1 TOBACCO USE DISORDER 05/19/2017 MgbEvelyn A 466.0 ACUTE BRONCHITIS 05/19/2017 Evelyn Lam W 786.5 CHEST PAIN 05/19/2017 Evelyn Lam A J20.0 ACUTE BRONCHITIS DUE TO MYCOPLASMA PNEUMONIAE 05/19/2017 Evelyn Lam W R07.89 OTHER CHEST PAIN 05/19/2017 MgbEvelyn W Z72.0 TOBACCO USE 08/07/2017 Dago Turcios 883.1 OPEN WOUND OF FINGERS, COMPLICATED 08/07/2017 Dago Turcios S61.213A LACERATION W/O FB OF L MID FINGER W/O DAMAGE TO NAIL, INIT 08/17/2017 Lewis Akers 845.10 UNSPECIFIED SITE OF FOOT SPRAIN 08/17/2017 Lewis Akers S93.601A UNSPECIFIED SPRAIN OF RIGHT FOOT, INITIAL ENCOUNTER 03/20/2018 Lewis Akers 789.01 ABDOMINAL PAIN, RIGHT UPPER QUADRANT 03/20/2018 Lewis Akers 789.06 ABDOMINAL PAIN, EPIGASTRIC 03/20/2018 Lewis Akers R10.11 RIGHT UPPER QUADRANT PAIN 03/20/2018 Lewis Akers R10.13 EPIGASTRIC PAIN 05/18/2018 MARIANA BHANDARI APRN Ot 724.2 LUMBAGO 05/18/2018 ION SHANKS, ELIO Araya Ot 722.52 LUMB/LUMBOSAC DISC DEGEN 05/18/2018 MAGUE IGLESIAS MD, Ot O09.92 SUPERVISION OF HIGH RISK , [facility] 05/18/2018 MAGUE IGLESIAS MD, Ot Z36 ENCOUNTER FOR SCREENING OF MOT 05/18/2018 MAGUE IGLESIAS MD, Ot Z3A.12 12 WEEKS GESTATION OF 05/18/2018 MAGUE IGLESIAS MD Ot Z36 ENCOUNTER FOR SCREENING OF MOT 05/18/2018 MAGUE IGLESIAS MD, Ot Z3A.19 19 WEEKS GESTATION OF 05/18/2018 MAGUE IGLESIAS MD Ot Z36 ENCOUNTER FOR SCREENING OF MOT 05/25/2018 SHELDON LIN DO Ot Z01.818 ENCOUNTER FOR OTHER PREPROCEDURAL EXAMIN 05/31/2018 SHELDON LIN DO Ot Z01.818 ENCOUNTER FOR OTHER PREPROCEDURAL EXAMIN Procedures Code [place] [address] URINE DRUG SCREEN (IN-HOUSE ) 03/23/2012 33538 PSYCH IND W/MED CK 20 04/14/2012 49371 URINE DRUG SCREEN (IN-HOUSE ) 05/05/2012 37760 GC/CHLAM URINE (STATE) 06/17/2012 70125 URINE DRUG SCREEN (IN-HOUSE ) 06/28/2012 37015 URINE TEST (IN- HOUSE) 10/04/2012 00727 URINE TEST (IN- HOUSE) 10/20/2012 35784 URINE TEST (IN- HOUSE) 10/30/2012 50630 MRI SPINE (LUMBAR) W/O CONTRAST 01/23/2013 91814 URINE DRUG SCREEN (IN-HOUSE ) 01/23/2013 61468 URINE DRUG SCREEN (IN-HOUSE ) 02/16/2013 94873 ROUTINE VENIPUNCTURE 01/04/2014 68483 TEST, SERUM (RML) 01/04/2014 54701 UA W/ CULTURE IF INDICATED 03/05/2014 79116 CULTURE URINE 03/05/2014 78006 ROUTINE VENIPUNCTURE 03/20/2014 39706 CMP 03/20/2014 62218 TSH 03/20/2014 80301 CBC 03/20/2014 59990 AMERITOX 03/20/2014 [id number] DIVISION OF FEMALE PERINEUM, EXTERNAL AP 01/31/2016 [id number] DELIVERY OF PRODUCTS OF CONCEPTION, EXTE 01/31/2016 Results Test Result Range CBC With Differential/Platelet - 11/11/15 11:27 WBC 10.9 x10E3/uL 3.4-10.8 RBC 3.84 x10E6/uL 3.77-5.28 Hemoglobin 12.3 g/dL 11.1-15.9 Hematocrit 37.8 % 34.0-46.6 MCV 98 fL 79-97 MCH 32.0 pg 26.6-33.0 MCHC 32.5 g/dL 31.5-35.7 RDW 13.2 % 12.3-15.4 Platelets 324 x10E3/uL 150-379 Neutrophils 80 % Lymphs 14 % Monocytes 5 % Eos 1 % Basos 0 % Neutrophils (Absolute) 8.7 x10E3/uL 1.4-7.0 Lymphs (Absolute) 1.6 x10E3/uL 0.7-3.1 Monocytes(Absolute) 0.5 x10E3/uL 0.1-0.9 Eos (Absolute) 0.1 x10E3/uL 0.0-0.4 Baso (Absolute) 0.0 x10E3/uL 0.0-0.2 Immature Granulocytes 0 % Immature Grans (Abs) 0.0 x10E3/uL 0.0-0.1 Gest. Diabetes 1-Hr Screen - 11/11/15 11:27 Gestational Diabetes Screen 122 mg/dL 65-139 Complete urinalysis with reflex to culture - 11/15/15 20:25 Urine color determination YELLOW NRG Urine clarity determination VERY CLOUDY NRG Urine pH measurement by test strip 6 5-9 Specific gravity of urine by test strip 1.025 1.016- 1.022 Urine protein assay by test strip, semi-quantitative 2+ NEGATIVE Urine glucose detection by automated test strip NEGATIVE NEGATIVE Erythrocytes detection in urine sediment by light microscopy NEGATIVE NEGATIVE Urine ketones detection by automated test strip 1+ NEGATIVE Urine nitrite detection by test strip NEGATIVE NEGATIVE Urine total bilirubin detection by test strip NEGATIVE NEGATIVE Urine urobilinogen measurement by automated test strip (mass/volume) 1 mg/dL NORMAL Urine leukocyte esterase detection by dipstick 2+ NEGATIVE Automated urine sediment erythrocyte count by microscopy (number/high power field) NONE NRG Automated urine sediment leukocyte count by microscopy (number/high power field ) [HPF] NRG Bacteria detection in urine sediment by light microscopy LARGE NRG Squamous epithelial cells detection in urine sediment by light microscopy 25-50 NRG Crystals detection in urine sediment by light microscopy PRESENT NRG Casts detection in urine sediment by light microscopy NONE NRG Mucus detection in urine sediment by light microscopy SMALL NRG Complete urinalysis with reflex to culture YES NRG Calcium oxalate crystals detection in urine sediment by light microscopy MODERATE NRG Bacterial urine culture - 11/15/15 20:25 URINE CULTURE RESULTS MORE THAN 3 ISOLATES NRG Microscopic examination by wet preparation - 11/15/15 20:35 WET PREP RESULTS AT 2047 BY RT NRG Urine Culture, Routine - 11/27/15 14:44 Urine Culture, Routine Note Urine Culture, Routine - 12/23/15 12:01 Urine Culture, Routine Note Urine drug screening test - 01/27/16 11:00 Urine phencyclidine detection by screening method NEGATIVE NEGATIVE Urine benzodiazepines detection by screening method NEGATIVE NEGATIVE Urine cocaine detection NEGATIVE NEGATIVE Urine amphetamines detection by screening method NEGATIVE NEGATIVE Urine methamphetamine detection by screening method NEGATIVE NEGATIVE Urine cannabinoids detection by screening method NEGATIVE NEGATIVE Urine opiates detection by screening method NEGATIVE NEGATIVE Urine barbiturates detection NEGATIVE NEGATIVE Screening urine tricyclic antidepressants detection NEGATIVE NEGATIVE Urine methadone detection by screening method NEGATIVE NEGATIVE Urine oxycodone detection NEGATIVE NEGATIVE Urine propoxyphene detection NEGATIVE NEGATIVE Complete urinalysis with reflex to culture - 01/27/16 11:00 Urine color determination YELLOW NRG Urine clarity determination CLEAR NRG Urine pH measurement by test strip 7 5-9 Specific gravity of urine by test strip 1.010 1.016- 1.022 Urine protein assay by test strip, semi-quantitative NEGATIVE NEGATIVE Urine glucose detection by automated test strip NEGATIVE NEGATIVE Erythrocytes detection in urine sediment by light microscopy 1+ NEGATIVE Urine ketones detection by automated test strip NEGATIVE NEGATIVE Urine nitrite detection by test strip NEGATIVE NEGATIVE Urine total bilirubin detection by test strip NEGATIVE NEGATIVE Urine urobilinogen measurement by automated test strip (mass/volume) NORMAL NORMAL Urine leukocyte esterase detection by dipstick 1+ NEGATIVE Automated urine sediment erythrocyte count by microscopy (number/high power field) NONE NRG Automated urine sediment leukocyte count by microscopy (number/high power field ) [HPF] NRG Bacteria detection in urine sediment by light microscopy TRACE NRG Squamous epithelial cells detection in urine sediment by light microscopy 2-5 NRG Crystals detection in urine sediment by light microscopy NONE NRG Casts detection in urine sediment by light microscopy NONE NRG Mucus detection in urine sediment by light microscopy NEGATIVE NRG Complete urinalysis with reflex to culture NO NRG Complete blood count (CBC) with automated white blood cell (WBC) differential - 01/30/16 20:06 Blood leukocytes automated count (number/volume) 18.7 10*3/uL 4.3-11.0 Blood erythrocytes automated count (number/volume) 4.14 10*6/uL 4.35-5.85 Venous blood hemoglobin measurement (mass/volume) 13.8 g/dL 11.5-16.0 Blood hematocrit (volume fraction) 41 % 35-52 Automated erythrocyte mean corpuscular volume 98 [foz_us] 80-99 Automated erythrocyte mean corpuscular hemoglobin (mass per erythrocyte) 33 pg 25-34 Automated erythrocyte mean corpuscular hemoglobin concentration measurement ( mass/volume) 34 g/dL 32-36 Automated erythrocyte distribution width ratio 13.7 % 10.0-14.5 Automated blood platelet count (count/volume) 317 10*3/uL 130-400 Automated blood platelet mean volume measurement 9.3 [foz_us] 7.4-10.4 Automated blood neutrophils/100 leukocytes 90 % 42-75 Automated blood lymphocytes/100 leukocytes 5 % 12-44 Blood monocytes/100 leukocytes 5 % 0-12 Automated blood eosinophils/100 leukocytes 0 % 0-10 Automated blood basophils/100 leukocytes 0 % 0-10 Blood neutrophils automated count (number/volume) 16.8 10*3 1.8-7.8 Blood lymphocytes automated count (number/volume) 0.9 10*3 1.0-4.0 Blood monocytes automated count (number/volume) 0.9 10*3 0.0-1.0 Automated eosinophil count 0.0 10*3/uL 0.0-0.3 Automated blood basophil count (count/volume) 0.0 10*3/uL 0.0-0.1 Blood manual differential performed detection - 01/30/16 20:06 Blood monocytes/100 leukocytes 2 % NRG Manual blood segmented neutrophils/100 leukocytes 93 % NRG Blood band neutrophils/100 leukocytes 2 % NRG Manual blood lymphocytes/100 leukocytes 3 % NRG Blood anisocytosis detection by light microscopy SLIGHT NRG Blood erythrocyte morphology finding identification NORMAL NRG Blood type T Indirect antibody screen panel - 01/30/16 20:06 ABO+Rh group OP NRG Transfusion band number [id number] NRG Blood group antibody screen NEGATIVE NRG Complete blood count (CBC) with automated white blood cell (WBC) differential - 02/01/16 05:19 Blood leukocytes automated count (number/volume) 11.0 10*3/uL 4.3-11.0 Blood erythrocytes automated count (number/volume) 3.50 10*6/uL 4.35-5.85 Venous blood hemoglobin measurement (mass/volume) 11.6 g/dL 11.5-16.0 Blood hematocrit (volume fraction) 35 % 35-52 Automated erythrocyte mean corpuscular volume 99 [foz_us] 80-99 Automated erythrocyte mean corpuscular hemoglobin (mass per erythrocyte) 33 pg 25-34 Automated erythrocyte mean corpuscular hemoglobin concentration measurement ( mass/volume) 33 g/dL 32-36 Automated erythrocyte distribution width ratio 13.7 % 10.0-14.5 Automated blood platelet count (count/volume) 240 10*3/uL 130-400 Automated blood platelet mean volume measurement 9.3 [foz_us] 7.4-10.4 Automated blood neutrophils/100 leukocytes 76 % 42-75 Automated blood lymphocytes/100 leukocytes 15 % 12-44 Blood monocytes/100 leukocytes 7 % 0-12 Automated blood eosinophils/100 leukocytes 1 % 0-10 Automated blood basophils/100 leukocytes 0 % 0-10 Blood neutrophils automated count (number/volume) 8.4 10*3 1.8-7.8 Blood lymphocytes automated count (number/volume) 1.7 10*3 1.0-4.0 Blood monocytes automated count (number/volume) 0.8 10*3 0.0-1.0 Automated eosinophil count 0.1 10*3/uL 0.0-0.3 Automated blood basophil count (count/volume) 0.0 10*3/uL 0.0-0.1 TSH+Free T4 - 12/31/16 10:20 TSH 0.569 uIU/mL 0.450-4.500 T4,Free(Direct) 1.39 ng/dL 0.82-1.77 CBC With Differential/Platelet - 12/31/16 10:20 WBC 9.7 x10E3/uL 3.4-10.8 RBC 4.71 x10E6/uL 3.77-5.28 Hemoglobin 15.0 g/dL 11.1-15.9 Hematocrit 44.7 % 34.0-46.6 MCV 95 fL 79-97 MCH 31.8 pg 26.6-33.0 MCHC 33.6 g/dL 31.5-35.7 RDW 13.1 % 12.3-15.4 Platelets 384 x10E3/uL 150-379 Neutrophils 71 % Not Estab. Lymphs 23 % Not Estab. Monocytes 5 % Not Estab. Eos 1 % Not Estab. Basos 0 % Not Estab. Neutrophils (Absolute) 6.8 x10E3/uL 1.4-7.0 Lymphs (Absolute) 2.2 x10E3/uL 0.7-3.1 Monocytes(Absolute) 0.5 x10E3/uL 0.1-0.9 Eos (Absolute) 0.1 x10E3/uL 0.0-0.4 Baso (Absolute) 0.0 x10E3/uL 0.0-0.2 Immature Granulocytes 0 % Not Estab. Immature Grans (Abs) 0.0 x10E3/uL 0.0-0.1 Comp. Metabolic Panel (14) - 12/31/16 10:20 Glucose, Serum 90 mg/dL 65-99 BUN 8 mg/dL 6-20 Creatinine, Serum 0.80 mg/dL 0.57-1.00 eGFR If NonAfricn Am 103 mL/min/1.73 >59 eGFR If Africn Am 119 mL/min/1.73 >59 BUN/Creatinine Ratio 10 9-23 Sodium, Serum 139 mmol/L 134-144 Potassium, Serum 4.5 mmol/L 3.5-5.2 Chloride, Serum 100 mmol/L 96-106 Carbon Dioxide, Total 23 mmol/L 18-29 Calcium, Serum 9.3 mg/dL 8.7-10.2 Protein, Total, Serum 7.2 g/dL 6.0-8.5 Albumin, Serum 4.5 g/dL 3.5-5.5 Globulin, Total 2.7 g/dL 1.5-4.5 A/G Ratio 1.7 1.2-2.2 Bilirubin, Total 0.4 mg/dL 0.0-1.2 Alkaline Phosphatase, S 97 IU/L 39-117 AST (SGOT) 19 IU/L 0-40 ALT (SGPT) 27 IU/L 0-32 Lipid Panel - 12/31/16 10:20 Cholesterol, Total 255 mg/dL 100-199 Triglycerides 232 mg/dL 0-149 HDL Cholesterol 41 mg/dL >39 VLDL Cholesterol Vamshi 46 mg/dL 5-40 LDL Cholesterol Calc 168 mg/dL 0-99 Hemoglobin A1c - 12/31/16 10:20 Hemoglobin A1c 5.1 % 4.8-5.6 A1C - 12/31/16 10:20 Hemoglobin A1c 5.1 % 4.8-5.6 Influenza - 03/05/17 18:24 Influenza POSITIVE FOR A 0.00-0.00 Mycoplasma - 05/19/17 15:57 Mycoplasma - 05/19/17 16:49 Mycoplasma Positive Negative Urinalysis - 03/20/18 20:25 Icotest N/A Negative Urine Crystals Amorphous material: moderate/HPF Urine Volume Urine Volume Sufficient (10mL) Urine-Appearance Slightly Cloudy Clear Urine-Bacteria 2+ Urine-Bilirubin Negative Negative Urine-Blood Trace-intact Negative Urine-Color Yellow Colorless-Lt. Yellow Urine-Epithelial Cells 10-20/HPF Urine-Glucose Negative Negative Urine-Ketones Negative Negative Urine-Leukocytes Negative Negative Urine-Nitrite Negative Negative Urine-Other Urine Saved if Culture Needed (48hrs from time of collection) Urine-pH 6.0 5-8.5 Urine-Protein Negative Negative Urine-RBC 0-2/HPF Urine-Specific [place] >=1.030 1.000-1.030 Urine-WBC 0-2/HPF Urobilinogen 0.2 0.2-1.0 Lipase - 03/20/18 20:40 Lipase 10 U/L 7-59 Encounters ACCT No. Visit Date/Time Discharge Status Pt. Type Provider Facility Loc./Unit Complaint [id number] 05/07/2014 13:58:00 05/07/2014 23:59:59 CLS Outpatient BECKI BRENNAN APRN [id number] 03/20/2014 13:53:00 03/20/2014 23:59:59 CLS Outpatient DOMPhilip BRANCH CHAKA L [id number] 03/05/2014 11:07:00 03/05/2014 23:59:59 CLS Outpatient DIGNA BRAUN APRN [id number] 03/05/2014 11:07:00 03/05/2014 23:59:59 CLS Outpatient DIGNA BRAUN APRN [id number] 01/04/2014 15:44:00 01/04/2014 23:59:59 CLS Outpatient GAEL MARTÍNEZ DO [id number] 07/27/2013 09:51:00 07/27/2013 23:59:59 CLS Outpatient HUEY BRANCH AMANDA SEPIDEH [id number] 04/06/2013 16:30:00 04/06/2013 23:59:59 CLS Outpatient HUEY BRANCH AMANAD SEPIDEH [id number] 02/16/2013 14:58:00 02/16/2013 23:59:59 CLS Outpatient HUEY BRANCH AMANDA SEPIDEH [id number] 01/23/2013 13:36:00 01/23/2013 23:59:59 CLS Outpatient MARIANA BHANDARI APRN [id number] 01/23/2013 13:36:00 01/23/2013 23:59:59 CLS Outpatient GAEL MARTÍNEZ DO [id number] 12/22/2012 10:50:00 12/22/2012 23:59:59 CLS Outpatient GAEL MARTÍNEZ DO [id number] 10/30/2012 11:08:00 10/30/2012 23:59:59 CLS Outpatient PRASANNA TRIMBLE APRN [id number] 05/05/2012 10:26:00 05/05/2012 23:59:59 CLS Outpatient AMANDA ARZATE APRN [id number] 03/23/2012 13:31:00 03/23/2012 23:59:59 CLS Outpatient AMANDA ARZATE APRN [id number] 02/21/2012 14:55:00 02/21/2012 23:59:59 CLS Outpatient [id number] 10/04/2011 16:02:00 10/04/2011 23:59:59 CLS Outpatient [id number] 10/04/2011 16:02:00 10/04/2011 23:59:59 CLS Outpatient [id number] 10/30/2012 11:08:00 Document Registration [id number] 10/20/2012 14:17:00 Document Registration [id number] 06/28/2012 14:29:00 Document Registration [id number] 06/17/2012 11:28:00 Document Registration [id number] 12/25/2015 18:05:00 Document Registration [id number] 05/25/2018 05:49:00 05/25/2018 14:50:00 DIS Outpatient SHELDON LIN DO [facility] PREOP GALLSTONES [id number] 01/30/2016 18:24:00 02/02/2016 16:00:00 DIS Inpatient NANCY LYNN MD [facility] LDRP CONTRACTIONS [id number] 01/27/2016 10:31:00 01/27/2016 12:15:00 DIS Outpatient MAGUE IGLESIAS MD [facility] WSo VAG BLEEDING/POSS LOST PLUG 38 WKS PREG [id number] 11/15/2015 20:16:00 11/15/2015 22:25:00 DIS Outpatient NANCY LYNN MD [facility] WSo VOMITING, ABD PAIN, BACK PAIN [id number] 10/22/2015 11:58:00 10/22/2015 23:59:59 CLS Outpatient MAGUE IGLESIAS MD [facility] RAD SECOND TRIMESTER [id number] 09/18/2015 11:22:00 09/18/2015 23:59:59 CLS Outpatient MAGUE IGLESIAS MD [facility] RAD SURVEY,Z33.1 [id number] 07/25/2015 09:53:00 07/25/2015 23:59:59 CLS Outpatient MAGUE IGLESIAS MD [facility] RAD DATING AND VIABILITY [id number] 01/14/2015 18:14:00 01/14/2015 20:23:00 DIS Emergency DAGO TURCIOS APRN [facility] ER MIGRAINE [id number] 09/03/2014 20:28:00 09/03/2014 20:49:00 DIS Emergency FOSTER HUDSON DO [facility] ER BEE STING ON R EAR [id number] 08/27/2014 14:54:00 08/27/2014 23:59:59 CLS Outpatient ELIO LEMON MD [facility] RAD DDD [id number] 08/15/2014 12:54:00 08/22/2014 09:07:00 DIS Outpatient ELIO LEMON MD [facility] REHAB LUMBAGO [id number] 04/09/2013 19:31:00 04/09/2013 21:35:00 DIS Emergency KYLE WELLS DO [facility] ER CHEST PAIN, L ARM NUMBNESS [id number] 02/12/2013 11:53:00 02/12/2013 23:59:59 CLS Outpatient MARIANA BHANDARI [facility] LEVEL CLINICIAN [facility] RAD LONG STANDING LOW BACK PAIN [id number] 11/18/2012 18:09:00 11/18/2012 19:28:00 DIS Emergency DAGO TURCIOS APRN [facility] ER VOMITING [id number] 07/27/2012 22:49:00 07/28/2012 00:06:00 DIS Emergency MARY ANN SINGH MD [facility] ER SKIN RASH,MIGRAINE [id number] 06/01/2018 08:00:00 PEN Preadmit SHELDON LIN DO [facility] GALLSTONES [id number] 02/14/2012 12:38:00 Document Registration [id number] 11/15/2011 19:06:00 Document Registration [id number] 05/09/2010 23:24:00 Document Registration [id number] 04/10/2010 21:55:00 Document Registration [id number] 08/22/2009 13:05:00 Document Registration [id number] 01/01/2017 08:06:00 Document Registration [id number] 03/24/2018 13:43:00 03/24/2018 23:59:00 DIS Outpatient ALEXANDRA LISA [id number] 03/20/2018 19:24:00 03/20/2018 22:08:00 [id number] 08/17/2017 11:47:00 08/17/2017 12:55:00 [id number]2017 10:35:00 08/10/2017 23:59:00 DIS Outpatient NADIA STANFORD [id number] 08/07/2017 17:12:00 08/07/2017 17:51:00 DIS Outpatient Eriberto [facility] ER [id number] 05/19/2017 15:21:00 05/19/2017 17:10:00 DIS Outpatient Evelyn Lam [facility] ER [id number] 03/05/2017 18:04:00 03/05/2017 20:04:00 DIS [place] [facility] [place] [id number] 03/05/2017 18:26:47 Document Registration [id number] 05/10/2018 15:40:00 05/10/2018 23:59:59 [facility] [id number] 12/31/2016 10:00:00 Document Registration [id number] 09/03/2014 20:29:10 ACT Document Registration [id number] 11/12/2015 13:06:00 Document Registration [id number] 11/29/2015 07:06:00 Document Registration
--- NOTE | 2018-06-01 08:20 | Progress Note-Pre Operative ---
Pre-Operative Progress Note H&P Reviewed The H&P was reviewed, patient examined and no changes noted. Time Seen by Provider: 08:16 Date H&P Reviewed: Jun 01, 2018 Time H&P Reviewed: 08:17 Pre-Operative Diagnosis: Cholelithiasis/cholecystitis SHELDON LIN DO Jun 01, 2018 08:20
--- NOTE | 2018-06-01 09:24 | Progress Note-Post Operative ---
Post-Operative Progess Note Surgeon (s)/Supervisor Boarding (s) Surgeon SHELDON LIN DO Supervisor Boarding: [place] Pre-Operative Diagnosis Cholelithiasis/cholecystitis Post-Operative Diagnosis same Procedure & Operative Findings Date of Procedure 06/01/18 Procedure Performed/Findings Lap myrna with IOC Anesthesia Type GET Estimated Blood Loss Estimated blood loss (mL): less than 5ml Specimens/Packing Specimens Removed GB and contents SHELDON LIN DO Jun 01, 2018 09:24
[2018-06-01] MEDS ORDERED: ACHD5005 PO (09:26)
[2018-06-01] MEDS ORDERED: NEOSTIGMINE 1 MG/ML 5 ML SYRINGE ONE (09:26)
[2018-06-01] MEDS ORDERED: GLYCOPYRROLATE 0.2 MG/ML (ROBINUL) 2 ML VIAL ONE (09:26)
--- NOTE | 2018-06-01 09:27 | Discharge Inst-Surgical ---
Discharge Inst-Surgical Depart Medication/Instructions New, Converted or Re-Newed RX: RX Given to Pt/Family Patient Instructions Follow up Appt: Make appointment for 1 week. [phone] Instructions: No lifting greater than 20 pounds. No strenuous activity. May shower in 24 hours, no tub bath or soaking. Use incentive spirometer at home as directed. No Smoking Skin/Wound Care: May remove bandages in am. You need to leave the Dermabond on incision it will fall off on it's own. Symptoms to Report: Appetite Changes, Extremity Discoloration, Numbness/Tingling, Swelling Increased , Bleeding Excessive, Eyesight Changes, Pain Increased, Urine Color Change, Constipation(Persistent), Fever over 101 degree F, Pain/Pressure in chest, Urinating Difficulty, Cough Up/Vomit Blood, Heart Beat Irreg/Pounding, Pain/ Pressure in jaw, Cramps in feet or legs, Lightheadedness, Pain/Pressure in shoulder, Diarrhea(Persistent), Memory Changes Suddenly, Questions/Concerns, Weight gain consecutive days, Dizziness/Fainting, Nausea/Vomiting, Shortness of Breath, Weight gain over 2 pounds If questions or concerns contact your physician Or seek help at emergency department. Activity Activity as Tolerated: Yes Activity Instructions: Avoid Stress to Incision Driving Instructions: No Driving/Refer to Diet Discharge Diet: Avoid Fatty Foods, Low Fat/Low Cholesterol Diet After 24 Hours: Clear Liquid if Nauseous If Any Problems/Questions/Issu: Contact Your Physician, Go to Emergency Room Skin/Wound Care Infection Signs and Symptoms: Increased Redness, Foul Odor of Wound, Increased Drainage, Skin Itchy or Has a Rash, Increased Swelling, Temperature Above 101 F Wound Care Comment: heating pad to shoulder or neck for pain tonight Bathing Instructions: Shower Stitches/[place]/Dermabond Dis: Dermabond Ice Pack: Ice On and Off Site (as needed for pain) SHELDON LIN DO Jun 01, 2018 09:27
[2018-06-01] MEDS ORDERED: ONDANSETRON 4 MG/2 ML (SDV) Z0FRAN IVP PRN (09:45)
[2018-06-01] MEDS ORDERED: PROMETHAZINE INJ 25 MG/ML (PHENERGAN) AMP IVP ONE (09:45)
[2018-06-01] MEDS ORDERED: MEPERIDINE (DEMEROL) INJ 50 MG/ML IVP ONE (09:45)
[2018-06-01] MEDS ORDERED: fentaNYL INJECTION 100 MCG/2 ML AMP IVP ONE (09:45)
[2018-06-01 11:00] VITALS: BP 132/70
[2018-06-01] MEDS ORDERED: HYDROcodone/APAP 5 MG/325 MG (LORTAB) TAB PO ONE (11:15)
[2018-06-01] MEDS ORDERED: HYDROcodone/APAP 5 MG/325 MG (LORTAB) TAB ONE (11:17)
--- NOTE | 2018-06-01 11:23 | Diagnostic Imaging Report ---
INDICATION: Abdominal pain PROCEDURE: Surgical cholangiogram. TECHNIQUE: 12.1 seconds phosphate was used. 66 digital images were sent. There is a filling defect at the junction of the common hepatic and common bile duct segments with meniscus sign suggesting calculus. There is contrast passing beyond the obstruction and passing into the duodenum. There is reflux into pancreatic duct. 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 This could be from extrinsic compression from a ligature versus choledocholithiasis. Dictated by: Dictated on workstation # [id number]
[2018-06-01 11:30] VITALS: BP 124/84
[2018-06-01 12:00] VITALS: BP 128/78
[2018-06-01 12:25] VITALS: BP 128/78
--- NOTE | 2018-06-01 13:24 | OPERATIVE REPORT ---
DATE OF SERVICE: 06/01/2018 PREOPERATIVE DIAGNOSES: Cholelithiasis, cholecystitis. POSTOPERATIVE DIAGNOSES: Cholelithiasis, cholecystitis. PROCEDURES PERFORMED: Laparoscopic cholecystectomy, intraoperative cholangiogram. SURGEON: Bon Hollins DO. RAIL CAR OPERATOR: Boyd Dangelo DO. ANESTHESIA: General endotracheal tube. SPECIMEN: Gallbladder and contents. BLOOD LOSS: Scant. FLUIDS: Per anesthesia. POSTOPERATIVE CONDITION: Stable. INDICATION FOR PROCEDURE: The patient is a 27-year-old female who is having some abdominal pain and ultrasound showed stones usually associated with fried and fatty foods. An ultrasound showed stones and need to get her gallbladder removed. FINDINGS: The patient had some stones in the gallbladder. PROCEDURE NOTE: After informed consent was obtained, the patient was brought to the operating room, placed on the table in supine position. She was sterilely prepped and draped in normal fashion. Local lidocaine was used to infiltrate the skin above the umbilicus. Made incision with #11 blade, carried down through the skin into subcutaneous tissue and deepened down to subcutaneous tissue with Bovie electrocautery down to the fascia. Fascia incised with Bovie electrocautery, then bluntly entered the abdomen, swept the finger around, placed #0 Vicryl [id number] suture and placed 11 mm trocar port under direct visualization. Created pneumoperitoneum and then placed 3 more ports in normal fashion using local lidocaine, 11-blade for stab incision and the VersaStep system, all done under direct visualization, one in the subxiphoid and two in the right upper quadrant. The patient was then placed in reverse Trendelenburg and rotated left, able to visualize the gallbladder that was very intrahepatic, able to grasp it and taken in superior direction and then grasped on [place] pouch and pulled in inferolateral direction, started dissecting out the cystic duct as well as the cystic artery. I was then able to get around the cystic duct and the cystic artery with bluntly and placed a clip distally on the cystic duct and one distally and one proximally on the cystic artery. Cut the cystic duct intermediate through Metzenbaum scissors. Placed a cholangiogram catheter and then shot a cholangiogram. Good spillage of dye down the common bile duct into the small intestine as well as up into common hepatic and right and left hepatics. Removed the cholangiogram catheter, placed 3 clips proximally on the cystic duct and then cut the cystic duct and cystic artery with Metzenbaum scissors and then removed the gallbladder from the liver with L-hook cautery which was completely removed and placed a bag and then placed the gallbladder in the bag and then removed this through the supraumbilical incision. I then placed the port back in the abdomen, copiously irrigated with normal saline, suctioned this out. Once we have made sure there was no bleeding from the bed of liver, placed the patient back in supine. She had been in reverse Trendelenburg and rotated to left, removed the ports under visual inspection and then suctioned out the pneumoperitoneum as well as allowed it to escape. I closed the supraumbilical incision with #0 Vicryl suture previously placed. Copiously irrigated all incisions with normal saline, closing the 3 small 5 mm incisions with a single interrupted 4-0 undyed Monocryl subcuticular stitch and closed supraumbilical incision with 3 interrupted 4-0 undyed Monocryl subcuticular stitches. Area was cleaned and dried and Dermabond placed as well as Band-Aids. The patient was still in the room while this is being dictated but she was transferred to recovery room. Sponge, instrument and needle counts were correct at the end of the case. Dr. Dangelo assisted in this case helping to make incisions and close incisions, identifying anatomy, hold anatomy out of the way. Job ID: [id number] DocumentID: [id number] Dictated Date: 06/01/2018 09:25:00 Box Lidder Date: 06/01/2018 13:23:53 Dictated By: BON HOLLINS DO
--- NOTE | 2018-06-01 14:49 | Anesthesia-General Post-Op ---
General Patient Condition Mental Status/LOC: Same as Preop Cardiovascular: Satisfactory Nausea/Vomiting: Absent Respiratory: Satisfactory Pain: Controlled Complications: Absent Post Op Complications Complications None Follow Up Care/Instructions Patient Instructions None needed. Anesthesia/Patient Condition Patient Condition Patient was seen after the procedure and she was doing well, no complaints, stable vital signs, no apparent adverse anesthesia problems. CEDRIC ROWLAND DO Jun 01, 2018 14:49
== END 2018-06-01 12:30 | disposition home or self-care (01) ==
LOC: SDC 05:56
PROVIDERS: ATTEND Surgery
DX: K80.10 Calculus of gallbladder with chronic cholecystitis without obstruction (principal); J45.909 Unspecified asthma, uncomplicated; F17.210 Nicotine dependence, cigarettes, uncomplicated; K21.9 Gastro-esophageal reflux disease without esophagitis; F31.9 Bipolar disorder, unspecified; E66.01 Morbid (severe) obesity due to excess calories; Z68.43 Body mass index [BMI] 50.0-59.9, adult
CPT/HCPCS: 36415; 84703; 85025; 87081; 88304; 94664

== ENCOUNTER → 2022-12-08 | Outpatient (CLI) | payer MEDICAID ==
[~2022-12-08] MED LIST changes: +ACHD5005 PO; -SULF1TAB35 PO
[2022-12-08 10:23] VITALS: BP 142/94
--- NOTE | 2022-12-08 11:42 | Cardiology Stress Test Report ---
Stress Test Report Date of Procedure/Referring: Date of Procedure: Dec 08, 2022 PCP Luisa Keen MD Admitting Physician Admitting Physician: Attending Physician: Irina Zayas MD Baseline Heart Rate: 79 Baseline Blood Pressure: Blood Pressure Systolic: 142 Blood Pressure Diastolic: 94 Baseline EKG: Baseline EKG: NSR Summary/Conclusion: Summary: In summary, the patient started exercising with a baseline heart rate, blood pressure and EKG mentioned above Patient was able to exercise for a total of 3 minutes on Sky protocol, METs 4.6 Maximum heart rate 162 Maximum blood pressure 235/115 Stress EKG, Minimal nondiagnostic changes Recovery EKG , Return to baseline Conclusion: Fair exercise tolerance for a total of 3 minutes on standard Sky protocol, 4.6 METS achieving 85% of maximal expected heart rate Appropriate heart rate response to exercise with hypertensive response to exercise with peak blood pressure 235/115 return to baseline during recovery Nondiagnostic EKGs with exercise return to baseline during recovery Occasional PVCs and PACs noted during recovery. Copy Copies To 1: [facility] [place] IRINA ZAYAS MD Dec 08, 2022 11:42
== END ==
LOC: CARD 09:34
PROVIDERS: ATTEND Internal Medicine Cardiovascular Disease
DX: R00.2 Palpitations (principal); R07.9 Chest pain, unspecified
CPT/HCPCS: 93017